=== PATIENT | female | born 2000 | race Hispanic/Latino ===

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

== ENCOUNTER 2022-09-15 13:28 | Emergency (ER) | payer OTHER ==
--- OUTSIDE RECORDS SUMMARY | 2022-09-15 13:35 | XMS REPORT | Continuity of Care Document ---
:2000 Author Organization [facility] t Address [address] [place] [address] Care Team Providers Name Role Phone PCP, PATIENT DOES NOT HAVE A Primary Care Physician UnavailAbigail Browne Attending Clinician Unavailable LAQUITA COLEMAN Attending Clinician Unavailable LORENA VALDOVINOS Attending Clinician Unavailable Laquita Coleman MD Attending Clinician Only, Adc Test Attending Clinician Unavailable Doctor Unassigned, [place] Attending Clinician Unavailable Lorena Valdovinos PA-C Attending Clinician LAQUITA COLEMAN Admitting Clinician Unavailable Laquita Coleman MD Admitting Clinician Payers Payer Name Policy Type Policy Number Effective Date Expiration Date Amarilys pete [facility] [id number] 2015 00:00:00 Problems Condition Condition Condition Status Onset Resolution Last Treating Co mments Source Name Details Category Date Date Treatment Clinician Date Encounter Encounter Disease Active Uni vers for IUD for IUD 2-08 ity of removal removal 00:00: [place] 00 Medical Branch Status Status Disease Active Univers post post 2-08 [place] Intrauteri Intrauteri Disease Active 2020-10 U nivers ne ne 1-29 [place] crystal [place] crystal device 00 Me dical threads threads Branch lost, lost, initial initial encounter encounter Morbid Morbid Disease Active [facility] obesity obesity 8-14 ity of with body with body 00:00: [place] s mass index mass index 00 Me dical of of Branch 40.0-49.9 40.0-49.9 Iron Iron Problem Active Common deficiency deficiency Sp jean carlos anemia due anemia due - [facility] to chronic to chronic St blood loss blood loss [facility] Nexplanon Nexplanon Problem Active Com mon in place in place Spirit - [facility] Menorrhagi Menorrhagi Problem Active C ommon a with a with Spirit regular regular - [facility] cycle cycle [facility] Intermenst Intermenst Problem Active C ommon rual rual Spirit bleeding bleeding - [facility] Possible Possible Diagnosis Active Com mon urinary urinary Spirit tract tract - [facility] infection infection [facility] Allergies, Adverse Reactions, Alerts Allergy Allergy Status Severity Reaction(s) Onset Inactive Treating Comm ents Source Name Type Date Date Clinician NO KNOWN Drug Active Univers ALLERGIE Class ity of S [facility] Social History Social Habit Start Date Stop Date Quantity Comments Source Exposure to Not sure [facility] SARS-CoV-2 [facility] (event) Branch Alcohol intake 2021-11-23 2021-11-23 Current [facility] 00:00:00 00:00:00 non-drinker of [facility] alcohol [place] (finding) Tobacco use and 2017-06-25 2017-06-25 [facility] used [place] [facility] of exposure 00:00:00 00:00:00 [facility] Sex Assigned At [birth year] Universit y of 00:00:00 00:00:00 [facility] Smoking Status Start Date Stop Date Source Never smoker [facility] Medications Ordered Filled Start Stop Current Ordering Indication Dosage Frequency Signature Comments Components Source Medication Medication Date Date Medication? Clinician (SIG) Name Name FENTanyl PF Yes 25ug 25 mcg, Uni vers (SUBLIMAZE 2-08 Slow IV ity of (PF)) 15:06: Push, [place] injection 31 Q5MIN PRN, Medi ralph 25 mcg 4 doses, Branch Starting on Sun11/22/21 at 0906, Until Discontinu ed, Routine, Pain (scale 4-6), PACU ondansetron Yes 4mg 4 mg, Slow Univers (ZOFRAN 2-08 IV Push, ity of (PF)) 15:06: PRN, 1 [place] injection 4 31 dose, Medical mg Starting Branch on Sun11/22/21 at 0906, Until Discontinu ed, Routine, Nausea and Vomiting (N/V), PACU FENTanyl PF Yes 25ug 25 mcg, Uni vers (SUBLIMAZE 2-08 Slow IV ity of (PF)) 15:06: Push, [place] injection 31 Q5MIN PRN, Medi ralph 25 mcg 4 doses, Branch Starting on Sun11/22/21 at 0906, Until Discontinu ed, Routine, Pain (scale 7-10), PACU FENTanyl PF 2021- No 25ug 25 mcg, Un rashad (SUBLIMAZE 11-22 02- Slow IV ity o f (PF)) 15:06: 18:26 Push, [place] injection 31 :17 Q5MIN PRN, Medi ralph 25 mcg 4 doses, Branch Starting on Sun11/22/21 at 0906, Until Sun11/22/21 at 1226, Routine, Pain (scale 7-10), PACU FENTanyl PF 2021- No 25ug 25 mcg, Un rashad (SUBLIMAZE 11-22 02-08 Slow IV ity o f (PF)) 15:06: 18:26 Push, [place] injection 31 :17 Q5MIN PRN, Medi ralph 25 mcg 4 doses, Branch Starting on Sun11/22/21 at 0906, Until Sun11/22/21 at 1226, Routine, Pain (scale 4-6), PACU ondansetron 2021- No 4mg 4 mg, Slow Univers (ZOFRAN 11-22 02-08 IV Push, ity of (PF)) 15:06: 18:26 PRN, 1 [place] injection 4 31 :17 dose, Medical mg Starting Branch on Sun11/22/21 at 0906, Until Sun11/22/21 at 1226, Routine, Nausea and Vomiting (N/V), PACU sodium Yes PRN, Univers chloride 208 Starting ity of 0.9 % 14:18: on Sun [place] irrigation 00 11/22/21 at Medi ralph solution 0818, Branch Until Discontinu ed, Intra-op sodium 2021- No PRN, Univers chloride 2-05 16-08 Starting ity of 0.9 % 14:18: 18:26 on Sun irrigation 00 :17 11/22/21 at Medi ralph solution 0818, Branch Until Sun11/22/21 at 1226, Intra-op ferric Yes PRN, Univers subsulfate 2-08 Starting ity o f (MONSEL'S 14:16: on Sun [place] SOLUTION) 00 11/22/21 at Medic al solution 0816, Branch Until Discontinu ed, Routine, Intra-op ferric 2021- No PRN, Univers subsulfate 2- Starting ity of (MONSEL'S 14:16: 18:26 on Sun SOLUTION) 00 :17 11/22/21 at Medic al solution 0816, Branch Until Sun11/22/21 at 1226, Routine, Intra-op lactated 2021- No 1000mL at 42 Unive rs ringers IV 2-08 02-08 mL/hr, ity of infusion 12:30: 12:49 1,000 mL, Mihir as 1,000 mL 00 :00 IV Medical Infusion, Branch ONCE, 1 dose, On Sun11/22/21 at 0630, Routine, DSU Pre-op lactated 2021- No 1000mL at 42 Unive rs ringers IV 2-08 02-08 mL/hr, ity of infusion 12:30: 12:49 1,000 mL, Mihir as 1,000 mL 00 :00 IV Medical Infusion, Branch ONCE, 1 dose, On Sun11/22/21 at 0630, Routine, DSU Pre-op acetaminoph Yes [id number] 650mg Take 2 Univers en 2-08 tablets by ity of (TYLENOL) 00:00: mouth [place] 325 mg 00 every 6 Medical tablet (six) Branch hours as needed for Pain (scale 1-3) or Pain (scale 4-6). ibuprofen Yes [id number] 600mg Take 1 Univers 600 mg 2-08 tablet by ity of tablet 00:00: mouth [place] 00 every 6 Medical (six) Branch hours as needed for Pain (scale 1-3) or Pain (scale 4-6). acetaminoph Yes [id number] 650mg Take 2 Univers en 2-08 tablets by ity of (TYLENOL) 00:00: mouth [place] 325 mg 00 every 6 Medical tablet (six) Branch hours as needed for Pain (scale 1-3) or Pain (scale 4-6). ibuprofen Yes [id number] 600mg Take 1 Univers 600 mg 2-08 tablet by ity of tablet 00:00: mouth [place] 00 every 6 Medical (six) Branch hours as needed for Pain (scale 1-3) or Pain (scale 4-6). acetaminoph Yes [id number] 650mg Take 2 Univers en 2-08 tablets by ity of (TYLENOL) 00:00: mouth [place] 325 mg 00 every 6 Medical tablet (six) Branch hours as needed for Pain (scale 1-3) or Pain (scale 4-6). ibuprofen Yes [id number] 600mg Take 1 Univers 600 mg 2-08 tablet by ity of tablet 00:00: mouth [place] 00 every 6 Medical (six) Branch hours as needed for Pain (scale 1-3) or Pain (scale 4-6). No known No Univers medications 2-04 ity of 10:02: [place] 30 [facility] Branch Jairo Gill Yes Morgan not Common [facility] defined [facility] iron iron Yes [place] 1 tab Common [facility] Vital Signs Vital Name Observation Time Observation Value Comments Source Systolic blood 2021-11-22 15:40:00 103 mm[facility]Hg[facility] Diastolic blood 2021-11-22 15:40:00 61 mm[Hg] [facility] Heart rate 2021-11-22 15:40:00 83 /min [facility] Oxygen saturation in 2021-11-22 15:40:00 95 /min [facility] Arterial blood by [facility] Pulse oximetry Branch Respiratory rate 2021-11-22 15:35:00 17 /min [facility] Body temperature 2021-11-22 14:47:00 36.33 Solange [facility] Body height 2021-11-10 16:58:00 152.4 cm Universi [facility] Body weight 2021-11-10 16:58:00 102.1 kg [facility] BMI 2021-11-10 16:58:00 43.96 kg/m2 [facility] Body mass index 2021-11-10 16:58:00 98.89 % Unive rsity of (BMI) [Percentile] [place] Med ical Per age and sex Branch Systolic blood 2021-11-22 15:15:00 117 mm[Hg] Univer sity of pressure [facility] Diastolic blood 2021-11-22 15:15:00 64 mm[Hg] Unive rsity of pressure [facility] Heart rate 2021-11-22 15:15:00 78 /min [facility] Respiratory rate 2021-11-22 15:15:00 15 /min [facility] Oxygen saturation in 2021-11-22 15:15:00 95 /min [facility] Arterial blood by [facility] Pulse oximetry Branch Body temperature 2021-11-22 14:47:00 36.33 Solange [facility] Body height 2021-11-10 16:58:00 152.4 cm [facility] Body weight 2021-11-10 16:58:00 102.1 kg [facility] BMI 2021-11-10 16:58:00 43.96 kg/m2 [facility] Body mass index 2021-11-10 16:58:00 98.89 % Unive rsity of (BMI) [Percentile] [place] Med ical Per age and sex Branch Procedures Procedure Date / Time Performing Clinician Source Performed HYSTEROSCOPY 2021-11-22 13:34:00 Laquita Coleman [place] o f [facility] INTRAUTERINE DEVICE 2021-11-22 13:34:00 Laquita Coleman [facility] ABORH CONFIRMATION (LAB 2021-11-22 12:43:00 Laquita Coleman [facility] ONLY) Medical Branch ABORH CONFIRMATION (LAB 2021-11-22 12:43:00 Laquita Colemna [facility] ONLY) [facility] POCT TEST 2021-11-22 12:32:00 Galle, [facility] POCT TEST 2021-11-22 12:32:00 GiuseppeyenniShukri [facility] COVID-19 (ID NOW RAPID 2021-11-21 20:18:00 Jared [facility] TESTING) [facility] BASIC METABOLIC PANEL 2021-11-21 20:10:00 Coleman [facility] (NA, K, CL, CO2, Medical Branch GLUCOSE, BUN, CREATININE, CA) CBC WITH DIFF 2021-11-21 20:10:00 Jared [facility] GLYCOSYLATED HEMOGLOBIN 2021-11-21 20:10:00 [facility] [place] [facility] (A1C) [facility] HB ABO GROUPING 2021-11-21 20:10:00 [facility] TOTAL BETA HCG ASSAY 2021-11-21 20:10:00 Coleman [facility] DSU PRE-OP 2021-10-27 06:01:00 Doctor Unassigned, No [facility] DSU PRE-OP 2021-10-27 06:01:00 Doctor Unassigned, No [facility] Encounters Start End Encounter Admission Attending Care Care Encounter Source Date/Time Date/Time Type Type Clinicians Facility Department ID 2022-09-[address] [facility] [id number] Common 15:44:00 Abigail [facility] 2022-07-11 Outpatient Platt, [facility] [id number] Common 09:37:00 Abigail [facility] 2022-06-08 Outpatient Platt, [facility] [id number] Common 07:56:00 Abigail [facility] 2022-04-27 Outpatient Platt, STKE[facility] [id number] Common 17:37:00 Abigail [facility] 2022-02-10 Outpatient Lc, [facility] [id number] Common 13:16:00 Abigail [facility] 2022-01-[address] [facility] [id number] Common 14:04:00 Abigail 03385 [facility] 2021-11-09 [facility] [id number] Univers 17:14:16 ity [facility] 2022-06-20 2022-06-[address] [facility] [id number] Univers 10:45:00 10:45:00 LORENA ity [facility] 2022-06-05 2022-06-05 Outpatient R JARED [facility] [id number] Univers 08:30:00 08:30:00 ity [facility] 2022-04-12 2022-04-[address] [facility] [id number] Univers 00:00:00 00:00:00 [place] [id number] i ty of [facility] [place] [id number] Mt dic[address] 2021-12-28 2021-12-28 Outpatient R JARED LAQUITA [facility] [id number] Univers 13:30:00 13:30:00 ity [facility] 2021-12-19 2021-12-19 [facility] [id number] Univers 08:00:00 08:00:00 ity [facility] 2021-11-22 2021-11-22 Outpatient R JARED [facility] HAND MIXER [id number] Univers 06:17:00 10:10:00 ity [facility] 2021-11-22 2021-11-22 Hospital [facility] [id number] Univers 06:17:00 10:10:00 Encounter Cam [place] [id number] ity [facility] [place]ICAL [id number] [address] 2021-11-22 2021-11-22 Surgery [facility] [id number] Univers 07:59:00 09:15:00 Cam [place] 350.1.13.10 i ty of [facility] [place] 4.2.7.2.686 [place]ICAL [id number] [facility] 020 Branch 2021-11-21 2021-11-21 Laboratory Only, Minor Test [facility] 1.2.840. [id number] Univers 09:15:00 09:30:00 Only Laquita Coleman 350.1.13.10 ity of [facility] [place] 4.2.7.2.[place] [id number] [facility] 353 Branch 2021-11-21 2021-11-[address] [facility] [id number] Univers 09:15:00 09:15:00 ity of [facility] 2021-11-21 2021-11-21 Orders Doctor JOSH [id number] Univers 00:00:00 00:00:00 Only Unassigned, NONA 350.1.13.10 ity of [place] [facility] 4.2.7.2.686 Mihir as [id number] [facility] 009 Branch 2021-10-28 2021-10-28 Prep For Laquita Coleman [facility] [id number] Univers 00:00:00 00:00:00 Surgery Enrique BANSAL 350.1.13.10 i ty of [facility] [place] 4.2.7.2.[place] [id number] Mt dical NAL 134 [facility] 2021-10-27 2021-10-27 Office Laquita Coleman [facility] [id number] Univers 13:00:00 13:41:27 Visit Enrique B[place] 350.1.13.10 i ty of [place].2.[place] [id number] Mt dical NAL [address] [facility] 2021-10-27 2021-10-27 Outpatient R JARED LAQUITA [facility] [id number] Univers 13:00:00 13:41:27 ity of [facility] 2021-10-27 2021-10-27 Outpatient R COLEMAN LAQUITA [facility] [id number] Univers 13:00:00 13:00:00 ity of [facility] 2021-10-06 2021-10-06 Office Laquita Coleman [facility] [id number] Univers 09:30:00 10:02:57 Visit Enrique BANSAL 350.1.13.10 i ty of [place] 4[place]2.7.2.[place] [id number] Mt dical NAL [address] [place] [address] 2021-10-06 2021-10-[address] [facility] [id number] Univers 09:30:00 10:02:57 ity of [facility] 2021-09-22 2021-09-22 Outpatient R LAQUITA COLEMAN [facility] [id number] Univers 13:30:00 13:30:00 ity of [facility] 2021-09-21 2021-09-21 Telephone [facility] [id number] Univers 00:00:00 00:00:00 Cam SARAH 350.1.13.10 i ty of [place] 4.2.7.2.686 [place] [id number] Mt dical NAL [address] [place] [address] 2021-09-16 2021-09-16 Outpatient R LAQUITA COLEMAN [facility] [id number] Univers 10:47:44 23:59:00 ity of [facility] 2021-09-16 2021-09-16 Hospital Laquita Coleman [facility] [id number] Univers 10:47:44 23:59:00 Encounter Enrique [place] 350.1.13.10 ity of [place].2.7.2.[place] [id number] [facility] 806 [place] 2021-09-12 2021-09-[address] [facility] [id number] Univers 10:30:00 11:19:04 ity of [facility] 2021-09-12 2021-09-12 Office [facility] [id number] Univers 10:01:44 11:19:04 Visit Enrique [place] 350.1.13.10 i ty of [place] 4.2.7.2.[place] [id number] Mt dical [facility] 134 [facility] 2021-09-12 2021-09-12 Orders Doctor JOSH 1.2.840.114 [id number] Univers 00:00:00 00:00:00 Only Unassigned, NONA 350.1.13.10 ity of [place] [facility] 4.2.7.2.686 Mihir as [id number] [facility] 009 [place] 2020-06-08 2020-06-08 Telephone [facility] 1.2.840.114 [id number] 00:00:00 00:00:00 Lorena Bansal 350.1.13.10 [place] 4.2.7.2.686 Professio [id number] [address] 2020-06-08 2020-06-08 Telephone [facility] 1.2.840.114 [id number] Univers 00:00:00 00:00:00 Lorena Bansal 350.1.13.10 i ty of [place] 4[place]2.7.2.[place] Profess[place] [id number] Mt dical [address] 2020-06-03 2020-06-03 [facility] 1.2.840.114 [id number] 12:05:34 23:59:00 Encounter Lorena Bansal 350.1.13.10 [place] 4.2.7.2.686 [place] [id number] [facility] 2020-06-03 2020-06-03 [facility] 1.2.840.114 [id number] Univers 12:05:34 23:59:00 Encounter Lorena [place] 350.1.13.10 ity of [place] 4[place]2.7.2.686 [place] [id number] [facility] [address] [place] [address] 2020-06-03 2020-06-03 [facility] [id number] [facility] 00:00:00 00:00:00 LORENA lakhani of [facility] 2020-05-28 2020-05-28 Office [facility] [id number] 10:40:11 11:21:10 Visit Lorena Bansal 350.1.13.10 [place] 4.2.7.2.[address] Professio [id number] 2020-05-28 2020-05-28 [facility] [id number] Univers 10:40:11 11:21:10 Visit Lorena Bansal 350.1.13.10 i ty of [place] 4.2.7.2.[place] Profess[place] [id number] Me dical [address] 2020-05-28 2020-05-28 Outpatient [facility] [id number] Univers 10:30:00 10:30:00 LORENA ity [facility] 2020-05-28 2020-05-28 Orders Doctor MORENO 1.2.840.114 [id number] Univers 00:00:00 00:00:00 Only Unassigned, NONA 350.1.13.10 ity of [place] [facility] 4.2.7.2.686 Mihir as [id number] [address] 2019-07-25 2019-07-25 Outpatient [facility] [id number] Common 13:30:00 13:30:00 [facility] 2019-04-09 2019-04-09 Outpatient [facility] [id number] Common 14:30:00 14:30:00 [facility] Results Test Description Test Time Test Comments Results Result Comments Source ABORH Confirmation (Lab Only) 2021-11-22 13:50:31 Test Item Value Reference Range Interpretation Comme nts ABO & RH (test code = 20) O Positive Pe rformed at [facility] Laboratory Services - [facility] Blood [address] [place], [place] [address]Vuwj Free: [phone] A No. [id number] [facility] Confirm[facility] (Lab Only)2021-11-22 13:50:31 Test Item Value Reference Range Interpretation Comments ABO & RH (test code O Positive Performe d at [facility] = 20) Laboratory Serv [facility] - [facility] Blood Bank1 [address] [place], [place] [address]Yeeq Free: [phone] A No. [id number] [facility] Loan8184-10-03 12:33:00 Test Item Value Reference Range Interpretation Comments POCT PREG (test code = 1605) Negative On board controls acceptable with Yes C Line (test code = 3574) POCT PREG LOT # (test code = 3575) [id number] POCT PREG TEST DATE (test code = 3576) [facility] [id number] 12:33:00 Test Item Value Reference Range Interpretation Comments POCT PREG (test code = 1605) Negative On board controls acceptable with Yes C Line (test code = 3574) POCT PREG LOT # (test code = 3575) [id number] POCT PREG TEST DATE (test code = 3576) [facility] BETA HCG [id number] 22:03:20 Test Item Value Reference Range Interpretation Comments BETA HCG (test <2.39 See_Comment [Automated m essage] code = The system [employer] [id number]) generated this result transmit anup reference range : Non- fe male and male patien ts: <5 mIU/mL. The reference range was not used to interpret this result as normal/abnormal . ASUNCION (test code Gestational Age ? ? = ASUNCION) ?Range (mIU/mL) 1-10 ?Weeks ?63-11529040-77 Weeks ?19299-63313938-66 Weeks ?1274-94851224-34 Weeks ?9269-816782 Biotin has been reported to cause a negative bias, interpret results relative to patient's use of biotin. [facility] METABOLIC PANEL (NA, K, CL, CO2, GLUCOSE, BUN, CREATININE, CA)2021-11-21 21:22:47 Test Item Value Reference Range Interpretation Comments NA (test code = 139 mmol/L 135-145 [id number]) K (test code = 4.6 mmol/L 3.5-5.0 9893899513) CL (test code = 102 mmol/L 98-108 0558431692) CO2 TOTAL (test code 28 mmol/L 23-31 = 1698910361) AGAP (test code = 2-16 4895087572) BUN (test code = 10 mg/dL 7-23 2458260069) GLUCOSE (test code = 93 mg/dL 70-110 5534682171) CREATININE (test code 0.53 mg/dL 0.50-1.04 = 5198170817) CALCIUM (test code = 9.5 mg/dL 8.6-10.6 2587404445) eGFR (test code = mL/min/1.73m2 0842495023) ASUNCION (test code = ASUNCION) Association of Glomerular Filtration Rate (GFR) and Staging of Kidney Disease* + + +- +| GFR (mL/min/1.73 m2) ?| With Kidney Damage ?| ?Without Kidney Damage+ ------+ ----+ ------+| ?>90 ?| ?Stage one ?| ? Normal ?+ -+ + -+| ?60-89 ?| ?Stage two ?| ? Decreased GFR ? + + +- +| ?30-59 ?| ?Stage three ?| ? Stage three ? + + +- +| ?15-29 ?| ?Stage four ? | ? Stage four ?+ -+ + -+| ?<15 (or dialysis) ? ?| ?Stage five ? | ? Stage five ?+ -+ + -+ *Each stage assumes the associated GFR level has been in effect for at least three months. ?Stages 1 to 5, with or without kidney disease, indicate chronic kidney disease. Notes: Determination of stages one and two (with eGFR >59mL/min/1.73 m2) requires estimation of kidney damage for at least three months as defined by structural or functional abnormalities of the kidney, manifested by either:Pathological abnormalities or Markers of kidney damage (including abnormalities in the composition of the blood or urine or abnormalities in imaging tests). [facility] BranchType and Screen -2021-11-21 21:16:11 Test Item Value Reference Range Interpretation Comments ABO & RH (test code O Positive Performe d at [facility] = 20) Laboratory [facility] Blood Bank[address] [place] [address]Cfcp Free: [phone] A No. [id number] IAT (test code = Negative Performed a t [facility] 1185) Laboratory [facility] Blood Bank[address] [place] [address]Kfjs Free: [phone] A No. [id number] [facility] WITH [id number] 20:52:43 Test Item Value Reference Range Interpretation Comments WBC (test code = See_Comment H [Automated 6690-2) message] The sy stem which generated this result transmitted reference range : 4.30 - 11.10 10*3/?L. The reference range was not used to interpret this result as normal/abnormal . RBC (test code = See_Comment [Automated 789-8) message] The sy stem which generated this result transmitted reference range : 3.93 - 5.25 10*6/?L. The reference range was not used to interpret this result as normal/abnormal . HGB (test code = 14.5 g/dL 11.6-15.0 718-7) HCT (test code = 43.7 % 35.7-45.2 4544-3) MCV (test code = 94.0 fL 80.6-95.5 787-2) MCH (test code = 31.2 pg 25.9-32.8 785-6) MCHC (test code = 33.2 g/dL 31.6-35.1 786-4) RDW-SD (test code = 47.4 fL 39.0-49.9 26227-7) RDW-CV (test code = 13.7 % 12.0-15.5 788-0) PLT (test code = See_Comment H [Automated 777-3) message] The sy stem which generated this result transmitted reference range : 166 - 358 10*3/ ?L. The reference r oliverio was not used to interpret this result as normal/abnormal . MPV (test code = 10.9 fL 9.5-12.9 01737-3) NRBC/100 WBC (test See_Comment [Automat ed code = [id number]) message] The system which generated this result transmitted reference range : 0.0 - 10.0 /100 WBCs. The refer ence range was not u sed to interpret th is result as normal/abnormal . NRBC x10^3 (test code <0.01 See_Comment [Auto mated = [id number]) message] The s ystem which generated this result transmitted reference range : 10*3/?L. The reference range was not used to interpret this result as normal/abnormal . GRAN MAT (NEUT) % 72.1 % (test code = 770-8) IMM GRAN % (test code 0.40 % = [id number]) LYMPH % (test code = 20.6 % 736-9) MONO % (test code = 5.8 % 5905-5) EOS % (test code = 0.7 % 713-8) BASO % (test code = 0.4 % 706-2) GRAN MAT x10^3(ANC) 8.05 10*3/uL 1.88-7.09 H (test code = 0029066390) IMM GRAN x10^3 (test 0.05 10*3/uL 0.00-0.06 code = [id number]) LYMPH x10^3 (test code 2.30 10*3/uL 1.32-3.29 = 731-0) MONO x10^3 (test code 0.65 10*3/uL 0.33-0.92 = 742-7) EOS x10^3 (test code = 0.08 10*3/uL 0.03-0.39 711-2) BASO x10^3 (test code 0.04 10*3/uL 0.01-0.07 = 704-7) Lab Interpretation Abnormal (test code = 81350-1) [facility]2021-11-21 20:34:08 Test Item Value Reference Range Interpretation Comments HGB A1C (test code = 5.2 % 4.0-5.7 4548-4) ASUNCION (test code = ASUNCION) Reference RangesNormal: <5.7%Prediabetes: 5.7 - 6.4%Diabetes: > 6.5% Lab Interpretation (test Normal code = 58521-7) [facility] [place]"
--- NOTE | 2022-09-15 14:28 | RAD REPORT ---
EXAM DESCRIPTION: CT - Head Brain Wo Cont - 09/15/2022 2:22 pm CLINICAL HISTORY: headache Headache, drowsiness COMPARISON: No comparisons TECHNIQUE: All CT scans are performed using dose optimization technique as appropriate and may inclu de automated exposure control or mA/KV adjustment according to patient size. FINDINGS: No intracranial hemorrhage, hydrocephalus or extra-axial fluid collection.No areas of brai n edema or evidence of midline shift. Chronic left maxillary sinus disease. The calvarium is intact. IMPRESSION: No acute intracranial abnormality. Chronic left maxillary sinusitis.
[2022-09-15] MEDS ORDERED: METOCLOPRAMIDE 10 MG/2mL INJ ONE (15:18)
[2022-09-15] MEDS ORDERED: DIPHENHYDRAMINE 50 MG/ML VIAL ONE (15:18)
[2022-09-15] MEDS ORDERED: NA CHLORIDE 0.9% 100 ML IV ONE (15:19)
[2022-09-15] MEDS ORDERED: dexAMETHasone 10 MG/ML VIAL ONE (15:19)
[2022-09-15] MEDS ORDERED: KETOROLAC 30 MG/ML INJ ONE (15:19)
--- NOTE | 2022-09-15 15:52 | EDPHYS ---
Physician Documentation [facility] Name: Wilton Kapadia Age: 22 yrs Sex: Female : 2000 Arrival Date: 09/15/2022 Time: 13:31 Bed DIS1 Private MD: ED Physician Molina Taylor HPI: 09/15 15:50 This 22 yrs old Female presents to ER via Ambulatory with complaints of kb Headache. 15:50 The patient has not recently seen a physician. kb 15:50 The patient complains of pain to the right judaism. The patient describes the headache kb as throbbing. Onset: The symptoms/episode began/occurred 2 day(s) ago. Associated signs and symptoms: The patient has no apparent associated signs or symptoms. Severity of symptoms: At its worst the pain was moderate, in the emergency department the pain is unchanged. Headache History: Denies prior headaches. The symptoms are alleviated by nothing. the symptoms are aggravated by nothing. The patient has not experienced similar symptoms in the past. Pt reports headache that started 2 days ago. States her brother was diagnosed with a brain tumor when he started having headaches so she was concerned. . 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 - Social history:: Smoking status: Patient denies any tobacco usage or history of. ROS: 15:48 Constitutional: Negative for fever, chills, and weight loss. kb 15:48 Neuro: Positive for headache. 15:48 All other systems are negative. Exam: 15:48 Constitutional: This is a well developed, well nourished patient who is awake, alert, kb and in no acute distress. Head/Face: Normocephalic, atraumatic. Eyes: Pupils equal round and reactive to light, extra-ocular motions intact. Lids and lashes normal. Conjunctiva and sclera are non-icteric and not injected. Cornea within normal limits. Periorbital areas with no swelling, redness, or edema. ENT: Moist Mucous membranes Cardiovascular: Regular rate and rhythm with a normal S1 and S2. No gallops, murmurs, or rubs. No pulse deficits. Respiratory: Respirations even and unlabored. No increased work of breathing. Talking in full sentences Abdomen/GI: Soft, non-tender. No distention Skin: Warm, dry with normal turgor. Normal color. MS/ Extremity: Pulses equal, no cyanosis. Neurovascular intact. Full, normal range of motion. Neuro: Awake and alert, GCS 15, oriented to person, place, time, and situation. Moves all extremities. Normal gait. Psych: Awake, alert, with orientation to person, place and time. Behavior, mood, and affect are within normal limits. Vital Signs: 14:01 BP 138 / 79; Pulse 72; Resp 20; Temp 98.7; Pulse Ox 100% ; Weight 104.33 kg; Height 5 kb3 ft. 0 in. (152.40 cm); Pain 7/10; 14:01 Body Mass Index 44.92 (104.33 kg, 152.40 cm) kb3 [place] Coma Score: 15:49 Eye Response: spontaneous(4). Verbal Response: oriented(5). Motor Response: obeys kb commands(6). Total: 15. MDM: 14:04 Patient medically screened. kb 15:49 Data reviewed: vital signs, nurses notes. Data interpreted: Pulse oximetry: on room air kb is 100 %. Interpretation: normal. Counseling: I had a detailed discussion with the patient and/or guardian regarding: the historical points, exam findings, and any diagnostic results supporting the discharge/admit diagnosis, radiology results, the need for outpatient follow up, a family practitioner, to return to the emergency department if symptoms worsen or persist or if there are any questions or concerns that arise at home. 15:51 Response to treatment: the patient's symptoms have resolved after treatment. kb 09/15 14:04 Order name: CT Head Brain wo Cont; Complete Time: 14:34 kb 09/15 15:07 Order name: IV Start; Complete Time: 15:32 kb Administered Medications: 15:20 Drug: Benadryl (diphenhydrAMINE) 12.5 mg Route: IVP; Site: left antecubital; ss 15:22 Drug: Decadron - Dexamethasone 10 mg Route: IVP; Site: left antecubital; ss 15:26 Drug: Ketorolac 15 mg Route: IVP; Site: left antecubital; ss 15:32 Drug: Reglan (metoCLOPramide) 10 mg Route: IVP; Site: left antecubital; ss Disposition: 18:54 Co-signature as Attending Physician, Molina Taylor MD. rn Disposition Summary: 09/15/22 15:51 Discharge Ordered Location: Home kb Condition: Stable kb Diagnosis - Headache kb Followup: kb - With: Emergency Department - When: As needed - Reason: Worsening of condition Followup: kb - With: Private Physician - When: 2 - 3 days - Reason: Recheck today's complaints, Continuance of care, Re-evaluation by your physician Discharge Instructions: - General Headache Without Cause, [id number] kb - Discharge Summary Sheet ss Forms: - Medication Reconciliation Form kb - Thank You Letter kb - Antibiotic Education kb - Prescription Opioid Use kb - Work release form ss Signatures: Dispatcher [employer] Brielle Schaffer, HEALTH TECHNICAL WRITER-C HEALTH TECHNICAL WRITER-Molina Farley MD MD rn Smirch, Shelby, RN RN ss Gay Gregorio, RN RN kb3
--- NOTE | 2022-09-15 15:52 | ER ---
Nurse's Notes [facility] Name: Wilton Kapadia Age: 22 yrs Sex: Female : 2000 Arrival Date: 09/15/2022 Time: 13:31 Bed DIS1 Private MD: Diagnosis: Headache Presentation: 09/15 14:01 Chief complaint: Patient states: right-sided headache x2 days. Coronavirus screen: kb3 Vaccine status: Patient reports receiving the 2nd dose of the covid vaccine. Client denies travel out of the [place] in the last 14 days. Ebola Screen: Patient negative for fever greater than or equal to 101.5 degrees Fahrenheit, and additional compatible Ebola Virus Disease symptoms Patient denies exposure to infectious person. Patient denies travel to an Ebola-affected area in the 21 days before illness onset. Initial Sepsis Screen: Does the patient meet any 2 criteria? No. Patient's initial sepsis screen is negative. Does the patient have a suspected source of infection? No. Patient's initial sepsis screen is negative. Risk Assessment: Do you want to hurt yourself or someone else? Patient reports no desire to harm self or others. Onset of symptoms was September 14, 2022. 14:01 Method Of Arrival: Ambulatory 3 14:01 Acuity: ARMANI 3 kb3 Triage Assessment: 14:04 Headache History: Denies prior headaches. General: Appears in no apparent distress. kb3 Behavior is calm, cooperative. Pain: Complains of pain in right amish Pain does not radiate. Pain currently is 7 out of 10 on a pain scale. Pain began 2-3 days ago. Also complains of no other associated symptoms. Neuro: No deficits noted. Reports headache. 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 - Social history:: Smoking status: Patient denies any tobacco usage or history of. Screenin:53 Abuse screen: Denies threats or abuse. Denies injuries from another. Nutritional ss screening: No deficits noted. Tuberculosis screening: Never had TB. Fall Risk None identified. Assessment: 14:53 General: Appears in no apparent distress. comfortable, Behavior is calm, cooperative. ss Neuro: Level of Consciousness is awake, alert, obeys commands, Oriented to person, place, time, situation, Nursing Care Partner are equal bilaterally. Neuro: Denies dizziness, numbness. Cardiovascular: Capillary refill < 3 seconds is brisk in bilateral fingers. Respiratory: Airway is patent Respiratory effort is even, unlabored, Respiratory pattern is regular, symmetrical. Derm: Skin is intact, is healthy with good turgor, Skin is dry, Skin is pink, warm \T\ dry. normal. Musculoskeletal: Circulation, motion, and sensation intact. Range of motion: intact in all extremities. 15:46 Reassessment: Patient appears in no apparent distress at this time. Patient and/or ss family updated on plan of care and expected duration. Pain level reassessed. Pain was initially 7/10. Pt reports that the pain is much better, now 3/10 and feels ready to go home. SHANI Hannah notified. Patient states feeling better. Patient states symptoms have improved. Vital Signs: 14:01 BP 138 / 79; Pulse 72; Resp 20; Temp 98.7; Pulse Ox 100% ; Weight 104.33 kg; Height 5 kb3 ft. 0 in. (152.40 cm); Pain 7/10; 14:01 Body Mass Index 44.92 (104.33 kg, 152.40 cm) kb3 [place] Coma Score: 15:49 Eye Response: spontaneous(4). Verbal Response: oriented(5). Motor Response: obeys kb commands(6). Total: 15. ED Course: 13:31 Patient arrived in ED. rg4 13:35 [facility] Blanca [facility]-C [facility] kb 13:35 Molina Taylor MD is Attending Physician. kb 14:04 Triage completed. kb3 14:04 Arm band placed on left wrist. kb3 14:24 CT Head Brain wo Cont In Process Unspecified. EDMS 14:53 Berta Bauman, JEREMIAH is Primary Nurse. ss 14:53 Patient has correct armband on for positive identification. Bed in low position. Call ss light in reach. 15:20 Inserted saline lock: 22 gauge in right antecubital area, using aseptic technique. ss Patient maintains SpO2 saturation greater than 95% on room air. 15:46 No provider procedures requiring assistance completed. ss 15:54 IV discontinued, intact, bleeding controlled, No redness/swelling at site. Pressure ss dressing applied. Administered Medications: 15:20 Drug: Benadryl (diphenhydrAMINE) 12.5 mg Route: IVP; Site: left antecubital; ss 15:22 Drug: Decadron - Dexamethasone 10 mg Route: IVP; Site: left antecubital; ss 15:26 Drug: Ketorolac 15 mg Route: IVP; Site: left antecubital; ss 15:32 Drug: Reglan (metoCLOPramide) 10 mg Route: IVP; Site: left antecubital; Medication: 14:53 VIS not applicable for this client. ss Outcome: 15:51 Discharge ordered by . kb 15:54 Discharged to home ambulatory. ss 15:54 Condition: good 15:54 Discharge instructions given to patient, Instructed on discharge instructions, follow up and referral plans. medication usage, Demonstrated understanding of instructions, follow-up care, medications. 15:57 Patient left the ED. ss Signatures: Dispatcher [employer] EDMS Brielle Blanca, DIETARY TECH-C DIETARY TECH-Berta Orta, RN Adry Stevens rg4 Gay Gregorio RN RN kb3
[2022-09-15 16:01] VITALS: BP 138/79; TEMP 98.7; O2SAT 100
== END 2022-09-15 15:57 | disposition home or self-care (01) ==
LOC: ER 13:28
DX: R51.9 Headache, unspecified (principal); F32.A Depression, unspecified
CPT/HCPCS: 70450; 96375; 96374; 99284; J2765; J1200; J1100

== ENCOUNTER 2022-09-28 00:52 | Emergency (ER) | payer OTHER ==
--- OUTSIDE RECORDS SUMMARY | 2022-09-28 00:56 | XMS REPORT | Continuity of Care Document ---
:2000 Author Organization [facility] t Address [address] [place] [address] Care Team Providers Name Role Phone PCP, PATIENT DOES NOT HAVE A Primary Care Physician UnavailAbigail Browne Attending Clinician Unavailable LAQUITA COLEMAN Attending Clinician Unavailable LORENA VALDOVINOS Attending Clinician Unavailable Laquita Coleman MD Attending Clinician Only, Adc Test Attending Clinician Unavailable Doctor Unassigned, [place] Attending Clinician Unavailable Lorena Valdovinos PA-C Attending Clinician LAQUITA COLEMAN Admitting Clinician Unavailable Laquita Coleman MD Admitting Clinician Payers Payer Name Policy Type Policy Number Effective Date Expiration Date Amarilys pete [facility] PERCY [id number] 2015 00:00:00 Problems Condition Condition Condition Status [...] initial encounter encounter Morbid Morbid Disease Active [facility] obesity obesity 8-14 ity of with body with body 00:00: Quentin s mass index mass index 00 Me dical of of Branch 40.0-49.9 40.0-49.9 Iron Iron Problem Active Common deficiency deficiency Sp jean carlos anemia due anemia due - [facility] to chronic to chronic St blood loss blood loss [facility] Nexplanon Nexplanon Problem Active Com mon in place in place [facility] - [facility] Menorrhagi Menorrhagi Problem Active C ommon a with a with Spirit regular regular - [facility] cycle cycle [facility] Intermenst Intermenst Problem Active C ommon rual rual Spirit bleeding bleeding - [facility] Possible Possible Diagnosis Active Com mon urinary urinary Spirit tract tract - [facility] infection infection [facility] Allergies, Adverse Reactions, Alerts Allergy Allergy Status Severity Reaction(s) Onset Inactive Treating Comm ents Source Name Type Date Date Clinician NO KNOWN Drug Active Univers ALLERGIE Class ity of S [facility] Social History Social Habit Start Date Stop Date Quantity Comments Source Exposure to Not sure [facility] SARS-CoV-2 [facility] (event) Branch Alcohol intake 2021-11-23 2021-11-23 Current [facility] 00:00:00 00:00:00 non-drinker of [facility] alcohol [place] (finding) Tobacco use and 2017-06-25 2017-06-[address] [facility] 00:00:00 00:00:00 [facility] Sex Assigned At [birth year] Universit y of 00:00:00 00:00:00 [facility] Smoking Status Start Date Stop Date Source Never smoker [facility] Medications Ordered Filled Start Stop Current [...] at 0630, Routine, DSU Pre-op acetaminoph Yes [id number] 650mg Take 2 Univers en 2-08 tablets by ity of (TYLENOL) 00:00: mouth [place] 325 mg 00 every 6 Medical tablet (six) Branch hours as needed for Pain (scale 1-3) or Pain (scale 4-6). ibuprofen Yes [id number] 600mg Take 1 Univers 600 mg 2-08 tablet by ity of tablet 00:00: mouth [place] 00 every 6 Medical (six) Branch hours as needed for Pain (scale 1-3) or Pain (scale 4-6). acetaminoph Yes [id number] 650mg Take 2 Univers en 2-08 tablets by ity of (TYLENOL) 00:00: mouth [place] 325 mg 00 every 6 Medical tablet (six) Branch hours as needed for Pain (scale 1-3) or Pain (scale 4-6). ibuprofen Yes [id number] 600mg Take 1 Univers 600 mg 2-08 tablet by ity of tablet 00:00: mouth [place] 00 every 6 Medical (six) Branch hours as needed for Pain (scale 1-3) or Pain (scale 4-6). acetaminoph Yes [id number] 650mg Take 2 Univers en 2-08 tablets by ity of (TYLENOL) 00:00: mouth [place] 325 mg 00 every 6 Medical tablet (six) Branch hours as needed for Pain (scale 1-3) or Pain (scale 4-6). ibuprofen Yes [id number] 600mg Take 1 Univers 600 mg 2-08 tablet by ity of tablet 00:00: mouth [place] 00 every 6 Medical (six) Branch hours as needed for Pain (scale 1-3) or Pain (scale 4-6). No known No Univers medications 2-04 ity of 10:02: [place] [facility] Branch Jairo Gill Yes Morgan not Common [facility] defined [facility] iron iron Yes [place] 1 tab [facility] Vital Signs Vital Name Observation Time Observation Value Comments Source Systolic blood 2021-11-22 15:40:00 103 mm[Hg] [facility] Diastolic blood 2021-11-22 15:40:00 61 mm[Hg] [facility] Heart rate 2021-11-22 15:40:00 83 /min [facility] Oxygen saturation in 2021-11-22 15:40:00 95 /min [facility] Arterial blood by [facility] Pulse oximetry Branch Respiratory rate 2021-11-22 15:35:00 17 /min [facility] Body temperature 2021-11-22 14:47:[address] [facility] Body height 2021-11-10 16:58:00 152.4 cm Universi [facility] Body weight 2021-11-10 16:58:[address] BMI 2021-11-10 16:58:00 43.96 kg/m2 [facility] Body mass index 2021-11-10 16:58:00 98.89 % Unive rsity of (BMI) [Percentile] [place] Med ical Per age and sex Branch Systolic blood 2021-11-22 15:15:00 117 mm[Hg] Univer sity of pressure [facility] Diastolic blood 2021-11-22 15:15:00 64 mm[Hg] Unive rsity of pressure [facility] Heart rate 2021-11-22 15:15:00 78 /min [facility] Respiratory rate 2021-11-22 15:15:00 15 /min [facility] Oxygen saturation in 2021-11-22 15:15:00 95 /min [facility] Arterial blood by [facility] Pulse oximetry Branch Body temperature 2021-11-22 14:47:[address] [facility] Body height 2021-11-10 16:58:[address] Body weight 2021-11-10 16:58:00 102.1 kg [facility] BMI 2021-11-10 16:58:00 43.96 kg/m2 [facility] Body mass index 2021-11-10 16:58:00 98.89 % Unive rsity of (BMI) [Percentile] [place] Med ical Per age and sex Branch Procedures Procedure Date / Time Performing Clinician Source Performed HYSTEROSCOPY 2021-11-22 13:34:00 Laquita Coleman [facility] INTRAUTERINE DEVICE 2021-11-22 13:34:00 Laquita Coleman [facility] ABORH CONFIRMATION (LAB 2021-11-22 12:43:00 Laquita Coleman [facility] ONLY) Medical Branch ABORH CONFIRMATION (LAB 2021-11-22 12:43:00 Laquita Coleman [facility] ONLY) [facility] POCT TEST 2021-11-22 12:32:00 G[place], [facility] POCT TEST 2021-11-22 12:32:00 GiuseppeyenniShukri [facility] COVID-19 (ID NOW RAPID 2021-11-21 20:18:00 Jared [facility] TESTING) [facility] BASIC METABOLIC PANEL 2021-11-21 20:10:00 Coleman [facility] (NA, K, CL, CO2, Medical Branch GLUCOSE, BUN, CREATININE, CA) CBC WITH DIFF 2021-11-21 20:10:00 Jared [facility] GLYCOSYLATED HEMOGLOBIN 2021-11-21 20:10:00 [facility] [place] [facility] (A1C) [facility] HB ABO GROUPING 2021-11-21 20:10:00 [facility] TOTAL BETA HCG ASSAY 2021-11-21 20:10:00 Coleman [facility] DSU PRE-OP 2021-10-27 06:01:00 Doctor Unassigned, No [facility] DSU PRE-OP 2021-10-27 06:01:00 Doctor Unassigned, No [facility] Encounters Start End Encounter Admission Attending Care Care Encounter Source Date/Time Date/Time Type Type Clinicians Facility Department ID 2022-09-12 Outpatient TAYO Platt [facility] [id number] Common 15:44:00 Abigail [facility] 2022-07-11 Outpatient Platt, [facility] [id number] Common 09:37:00 Abigail [facility] 2022-06-08 Outpatient Platt, [facility] [id number] Common 07:56:00 Abigail [facility] 2022-04-27 Outpatient Platt, [facility] [id number] Common 17:37:00 Abigail [facility] 2022-02-10 Outpatient Lc, [facility] [id number] Common 13:16:00 Abigail [facility] 2022-01-23 Outpatient TAYO Platt [facility] [id number] Common 14:04:00 Abigail [id number] [facility] 2021-11-09 [facility] [id number] Univers 17:14:16 ity [facility] 2022-06-20 2022-06-20 Outpatient R KENAN [facility] [id number] Univers 10:45:00 10:45:00 LORENA ity [facility] 2022-06-05 2022-06-05 Outpatient R JARED [facility] [id number] Univers 08:30:00 08:30:00 ity [facility] 2022-04-12 2022-04-12 Telephone ColemanLaquita [facility] [id number] Univers 00:00:00 00:00:00 Cam [place] [id number] i ty of [facility] [place] [id number] Tn dic[address] 2021-12-28 2021-12-28 Outpatient R JARED LAQUITA [facility] [id number] Univers 13:30:00 13:30:00 ity [facility] 2021-12-19 2021-12-19 [facility] [id number] Univers 08:00:00 08:00:00 ity [facility] 2021-11-22 2021-11-22 Outpatient R JARED [facility] RN ENT [id number] Univers 06:17:00 10:10:00 ity [facility] 2021-11-22 2021-11-22 [facility] [id number] Univers 06:17:00 10:10:00 Encounter Cam [place] [id number] ity [facility] [place] [id number] [address] 2021-11-22 2021-11-22 Surgery [facility] [id number] Univers 07:59:00 09:15:00 Cam [place] [id number] i ty of [facility] 4.2.[place].2.[place]ICAL [id number] [facility] 020 Branch 2021-11-21 2021-11-21 Laboratory Only, Minor Test [facility] 1.2.840. [id number] Univers 09:15:00 09:30:00 Only Laquita Coleman [id number] ity of [facility] 4.2.[place].2.[place] [id number] [facility] 353 Branch 2021-11-21 2021-11-21 Outpatient R VANI [facility] [id number] Univers 09:15:00 09:15:00 ity of [facility] 2021-11-21 2021-11-21 Orders Doctor JOSH [id number] Univers 00:00:00 00:00:00 Only Unassigned, NONA 350.1.13.10 ity of [place] [facility] 4.2.7.2.686 Mihir as [id number] [facility] 009 Branch 2021-10-28 2021-10-28 Prep For Laquita Coleman [facility] [id number] Univers 00:00:00 00:00:00 Surgery Enrique BANS[place] [id number] i ty of [facility] [place] [id number] Tn dical NAL [address] [facility] 2021-10-27 2021-10-27 Office Laquita Coleman [facility] [id number] Univers 13:00:00 13:41:27 Visit Enrique BANS[place] 350.1.13.10 i ty of [place] 4.2.7.2.[place] [id number] Tn dical NAL [address] [facility] 2021-10-27 2021-10-27 Outpatient R JARED LAQUITA [facility] [id number] Univers 13:00:00 13:41:27 ity of [facility] 2021-10-27 2021-10-27 Outpatient R COLEMAN LAQUITA [facility] [id number] Univers 13:00:00 13:00:00 ity of [facility] 2021-10-06 2021-10-06 Office Laquita Coleman [facility] [id number] Univers 09:30:00 10:02:57 Visit Enrique BANSAL 350.1.13.10 i ty of [place] 4.2.7.2.[place] [id number] Tn dical NAL [address] [place] [address] 2021-10-06 2021-10-06 Outpatient R COLEMANLAQUITA [facility] [id number] Univers 09:30:00 10:02:57 ity of [facility] 2021-09-22 2021-09-22 Outpatient R LAQUITA COLEMAN [facility] [id number] Univers 13:30:00 13:30:00 ity of [facility] 2021-09-21 2021-09-21 Telephone [facility] 1.2.840.114 [id number] Univers 00:00:00 00:00:00 Cam SARAH 350.1.13.10 i ty of [place] 4.2.7.2.[place] [id number] Tn dical NAL [address] [place] [address] 2021-09-16 2021-09-16 Outpatient R LAQUITA COLEMAN [facility] [id number] Univers 10:47:44 23:59:00 ity of [facility] 2021-09-16 2021-09-16 Hospital Laquita Coleman [facility] 1.2.840.114 [id number] Univers 10:47:44 23:59:00 Encounter Enrique [place] 350.1.13.10 ity of [place] 4.2.7.2.[place] [id number] [facility] 806 [place] 2021-09-12 2021-09-12 Outpatient R COLEMANLAQUITA [facility] [id number] Univers 10:30:00 11:19:04 ity of [facility] 2021-09-12 2021-09-12 Office [facility] [id number] Univers 10:01:44 11:19:04 Visit Enrique BANSAL 350.1.13.10 i ty of [place] 4.2.7.2.[place] [id number] Tn dical [facility] [address] [facility] 2021-09-12 2021-09-12 Orders Doctor JOSH 1.2.840.114 [id number] Univers 00:00:00 00:00:00 Only Unassigned, NONA 350.1.13.10 ity of [place] [facility] 4.2.7.2.686 Mihir as [id number] [facility] 009 [place] 2020-06-08 2020-06-08 Telephone [facility] 1.2.840.114 [id number] 00:00:00 00:00:00 Lorena Bansal 350.1.13.10 [place] 4.2.7.2.686 Professio [id number] [address] 2020-06-08 2020-06-08 Telephone [facility] 1.2.840.114 [id number] Univers 00:00:00 00:00:00 Lorena Bansal 350.1.13.10 i ty of [place] [id number] Tn dical [address] 2020-06-03 2020-06-03 [facility] 1.2.840.114 [id number] 12:05:34 23:59:00 Encounter Lorena Bansal 350.1.13.10 [place] 4.2.7.2.686 [place] [id number] [facility] 2020-06-03 2020-06-03 [facility] 1.2.840.114 [id number] Univers 12:05:34 23:59:00 Encounter Lorena [place]ans[place] 350.1.13.10 ity of [place] 4[place]2.[place] [id number] [facility] [address] [place] [address] 2020-06-03 2020-06-03 [facility] [id number] [facility] 00:00:00 00:00:00 LORENA lakhani of [facility] 2020-05-28 2020-05-28 Office [facility] [id number] 10:40:11 11:21:10 Visit Lorena Bansal 350.1.13.10 [place] 4.2.7.2.686 Professio [id number] [address] 2020-05-28 2020-05-28 [facility] [id number] Univers 10:40:11 11:21:10 Visit Lorena Bans[place] 350.1.13.10 i ty of [place] 4[place].2.[place] [id number] Me dical [address] 2020-05-28 2020-05-28 Outpatient [facility] [id number] Univers 10:30:00 10:30:00 LORENA ity [facility] 2020-05-28 2020-05-28 Orders Doctor MORENO 1.2.840.114 [id number] Univers 00:00:00 00:00:00 Only Unassigned, NONA 350.1.13.10 ity of [place] [facility] 4.2.7.2.686 Mihir as [id number] [address] 2019-07-25 2019-07-25 Outpatient [facility] [id number] Common 13:30:00 13:30:00 [facility] 2019-04-09 2019-04-09 Outpatient [facility] [id number] Common 14:30:00 14:30:00 [facility] Results Test Description Test Time Test Comments Results Result Comments Source ABORH Confirmation (Lab Only) 2021-11-22 13:50:31 Test Item Value Reference Range Interpretation Comme nts ABO & RH (test code = 20) O Positive Pe rformed at [facility] Laboratory Services - [facility] Blood [address] [place], [place] [address]Rjqp Free: [phone] A No. [id number] [facility] Confirmation (Lab Only)2021-11-22 13:50:31 Test Item Value Reference Range Interpretation Comments ABO & RH (test code O Positive Performe d at [facility] = 20) Laboratory Serv [facility] - [facility] Blood Bank[address] [place], [place] [address]Pfqh Free: [phone] A No. [id number] [facility] [id number] 12:33:00 Test Item Value Reference Range Interpretation Comments POCT PREG (test code = 1605) Negative On board controls acceptable with Yes C Line (test code = 3574) POCT PREG LOT # (test code = 3575) [id number] POCT PREG TEST DATE (test code = 3576) [facility] [id number] 12:33:00 Test Item Value Reference Range Interpretation Comments POCT PREG (test code = 1605) Negative On board controls acceptable with Yes C Line (test code = 3574) POCT PREG LOT # (test code = 3575) [id number] POCT PREG TEST DATE (test code = 3576) [facility] BETA HCG [id number] 22:03:20 Test Item Value Reference Range Interpretation Comments BETA HCG (test <2.39 See_Comment [Automated m essage] code = The system Lift [id number]) generated this result transmit anup reference range : Non- fe male and male patien ts: <5 mIU/mL. The reference range was not used to interpret this result as normal/abnormal . ASUNCION (test code Gestational Age ? ? = ASUNCION) ?Range (mIU/mL) 1-10 ?Weeks ?31-74785357-68 Weeks ?26203-61298065-96 Weeks ?5812-26706479-57 Weeks ?2398-320964 Biotin has been reported to cause a negative bias, interpret results relative to patient's use of biotin. [facility] METABOLIC PANEL (NA, K, CL, CO2, GLUCOSE, BUN, CREATININE, CA)2021-11-21 21:22:47 Test Item Value Reference Range Interpretation Comments NA (test code = 139 mmol/L 135-145 9121338263) K (test code = 4.6 mmol/L 3.5-5.0 3841474479) CL (test code = 102 mmol/L 98-108 6109733585) CO2 TOTAL (test code 28 mmol/L 23-31 = 3874359327) AGAP (test code = 2-16 5777991530) BUN (test code = 10 mg/dL 7-23 0523281964) GLUCOSE (test code = 93 mg/dL 70-110 4827970047) CREATININE (test code 0.53 mg/dL 0.50-1.04 = 7094912367) CALCIUM (test code = 9.5 mg/dL 8.6-10.6 6787968522) eGFR (test code = mL/min/1.73m2 1737205522) ASUNCION (test code = ASUNCION) Association of [...] or urine or abnormalities in imaging tests). [facility] BranchType and Screen -2021-11-21 21:16:11 Test Item Value Reference Range Interpretation Comments ABO & RH (test code O Positive Performe d at [facility] = 20) Laboratory [facility] Blood Bank[address] [place] [address]Wtkm Free: [phone] A No. [id number] IAT (test code = Negative Performed a t [facility] 1185) Laboratory [facility] Blood Bank1 [address] [place] [address]Jnlg Free: [phone] A No. [id number] [facility] WITH [id number] 20:52:43 Test Item Value Reference Range Interpretation [...] RDW-SD (test code = 47.4 fL 39.0-49.9 54203-4) RDW-CV (test code = 13.7 % 12.0-15.5 788-0) PLT (test code = See_Comment H [Automated 777-3) message] The sy stem which generated this result transmitted reference range : 166 - 358 10*3/ ?L. The reference r oliverio was not used to interpret this result as normal/abnormal . MPV (test code = 10.9 fL 9.5-12.9 34595-0) NRBC/100 WBC (test See_Comment [Automat ed code = 0840291722) message] The system which generated this result transmitted reference range : 0.0 - 10.0 /100 WBCs. The refer ence range was not u sed to interpret th is result as normal/abnormal . NRBC x10^3 (test code <0.01 See_Comment [Auto mated = 9924930816) message] The s ystem which generated this result transmitted reference range : 10*3/?L. The reference range was not used to interpret this result as normal/abnormal . GRAN MAT (NEUT) % 72.1 % (test code = 770-8) IMM GRAN % (test code 0.40 % = 2007865504) LYMPH % (test code = 20.6 % 736-9) MONO % (test code = 5.8 % 5905-5) EOS % (test code = 0.7 % 713-8) BASO % (test code = 0.4 % 706-2) GRAN MAT x10^3(ANC) 8.05 10*3/uL 1.88-7.09 H (test code = 3713101196) IMM GRAN x10^3 (test 0.05 10*3/uL 0.00-0.06 code = 3140104708) LYMPH x10^3 (test code 2.30 10*3/uL 1.32-3.29 = 731-0) MONO x10^3 (test code 0.65 10*3/uL 0.33-0.92 = 742-7) EOS x10^3 (test code = 0.08 10*3/uL 0.03-0.39 711-2) BASO x10^3 (test code 0.04 10*3/uL 0.01-0.07 = 704-7) Lab Interpretation Abnormal (test code = 26149-6) [facility] (A1C)2021-11-21 20:34:08 Test Item Value Reference Range Interpretation Comments HGB A1C (test code = 5.2 % 4.0-5.7 4548-4) ASUNCION (test code = ASUNCION) Reference RangesNormal: <5.7%Prediabetes: 5.7 - 6.4%Diabetes: > 6.5% Lab Interpretation (test Normal code = 18199-8) [facility]"
[2022-09-28 02:03] LABS: Urine Blood 2+ (Negative); Urine Glucose Negative (Negative); Urine Protein Trace (Negative); Urine Specific Gravity >=1.030 (1.005-1.030)
[2022-09-28 02:11] LABS: Absolute Lymphocytes (CBC) 3.3 K/uL (0.7-4.9); Hematocrit 33.9 % (36.0-45.0); Lymphocytes % 25.6 % (15.3-44.8); MCV 88.6 fL (80-100); MPV 8.5 fL (7.6-11.3); RBC Red Blood Cell Count 3.83 M/uL (3.86-4.86)
[2022-09-28 02:23] LABS: Potassium 3.5 mmol/L (3.5-5.1)
[2022-09-28 02:45] LABS: Urine Specific Gravity/Preg >1.030 (1.005-1.030)
--- NOTE | 2022-09-28 03:19 | EDPHYS ---
Physician Documentation [facility] Name: Wilton Kapadia Age: 22 yrs Sex: Female : 2000 Arrival Date: 09/28/2022 Time: 00:59 Bed 2 Private MD: ED Physician Cesar Astorga HPI: 09/28 02:30 This 22 yrs old Female presents to ER via Ambulatory with complaints of Hip kdr Pain, Abdominal Pain, PASSED A BLOOD CLOT. 02:30 Patient states that she was at home and felt that she passed a large clot of blood kdr vaginally. When she saw the blood in the stool she became somewhat nauseated. She then passed another clot. She did not look at at this clot in the toilet. She was concerned that she may be or have some other issue going on. She has been very irregular for the past year. She is sexually active.. Onset: The symptoms/episode began/occurred suddenly, just prior to arrival. Severity of symptoms: At their worst the symptoms were mild moderate just prior to arrival, in the emergency department the symptoms are unchanged. The patient has not experienced similar symptoms in the past. The patient has not recently seen a physician. 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 - Social history:: Smoking status: Patient denies any tobacco usage or history of. ROS: 02:30 Constitutional: Negative for fever, chills, and weight loss, Eyes: Negative for injury, kdr pain, redness, and discharge, ENT: Negative for injury, pain, and discharge, Neck: Negative for injury, pain, and swelling, Cardiovascular: Negative for chest pain, palpitations, and edema, Respiratory: Negative for shortness of breath, cough, wheezing, and pleuritic chest pain, Abdomen/GI: Negative for abdominal pain, nausea, vomiting, diarrhea, and constipation, Back: Negative for injury and pain, MS/Extremity: Negative for injury and deformity, Skin: Negative for injury, rash, and discoloration, Neuro: Negative for headache, weakness, numbness, tingling, and seizure activity. Psych: Negative for depression, anxiety, suicide ideation, homicidal ideation, and hallucinations, Allergy/Immunology: Negative for hives, rash, and allergies, Endocrine: Negative for neck swelling, polydipsia, polyuria, polyphagia, and marked weight changes, Hematologic/Lymphatic: Negative for swollen nodes, abnormal bleeding, and unusual bruising. 02:30 : Positive for vaginal bleeding, Negative for urinary symptoms, urinary frequency, small amounts. Exam: 02:30 Constitutional: This is a well developed, well nourished patient who is awake, alert, kdr and in no acute distress. Head/Face: Normocephalic, atraumatic. Eyes: Pupils equal round and reactive to light, extra-ocular motions intact. Lids and lashes normal. Conjunctiva and sclera are non-icteric and not injected. Cornea within normal limits. Periorbital areas with no swelling, redness, or edema. Neck: Trachea midline, no thyromegaly or masses palpated, and no cervical lymphadenopathy. Supple, full range of motion without nuchal rigidity, or vertebral point tenderness. No Meningismus. Chest/axilla: Normal chest wall appearance and motion. Nontender with no deformity. No lesions are appreciated. Cardiovascular: Regular rate and rhythm with a normal S1 and S2. No gallops, murmurs, or rubs. Normal PMI, no JVD. No pulse deficits. Respiratory: Lungs have equal breath sounds bilaterally, clear to auscultation and percussion. No rales, rhonchi or wheezes noted. No increased work of breathing, no retractions or nasal flaring. Abdomen/GI: Soft, non-tender, with normal bowel sounds. No distension or tympany. No guarding or rebound. No evidence of tenderness throughout. Back: No spinal tenderness. No costovertebral tenderness. Full range of motion. Skin: Warm, dry with normal turgor. Normal color with no rashes, no lesions, and no evidence of cellulitis. MS/ Extremity: Pulses equal, no cyanosis. Neurovascular intact. Full, normal range of motion. Neuro: Awake and alert, GCS 15, oriented to person, place, time, and situation. Cranial nerves II-XII grossly intact. Motor strength 5/5 in all extremities. Sensory grossly intact. Cerebellar exam normal. Normal gait. Psych: Awake, alert, with orientation to person, place and time. Behavior, mood, and affect are within normal limits. Vital Signs: 01:30 BP 133 / 88; Pulse 78; Resp 16; Temp 97.6(O); Pulse Ox 100% ; Weight 93.44 kg (R); kl Height 5 ft. 1 in. (154.94 cm); Pain 6/10; 02:30 BP 133 / 88; Pulse 75; Resp 16 S; Pulse Ox 100% on R/A; ha1 03:47 BP 114 / 88; Pulse 75; Resp 16 S; Pulse Ox 100% on R/A; ha1 01:30 Body Mass Index 38.92 (93.44 kg, 154.94 cm) kl MDM: 03:18 Patient medically screened. kdr 04:07 Data reviewed: vital signs, nurses notes, lab test result(s). Counseling: I had a kdr detailed discussion with the patient and/or guardian regarding: the historical points, exam findings, and any diagnostic results supporting the discharge/admit diagnosis, lab results, the need for outpatient follow up. 09/28 01:36 Order name: CBC with Diff; Complete Time: 03:13 kdr 09/28 01:36 Order name: Chem 7; Complete Time: 03:13 kdr 09/28 01:36 Order name: Urine Dipstick-Ancillary (obtain specimen); Complete Time: 02:15 kdr 09/28 01:36 Order name: Urine Test (obtain specimen); Complete Time: 02:15 kdr 09/28 02:04 Order name: Urine Dipstick-Ancillary; Complete Time: 03:13 EDMS 09/28 02:24 Order name: Urine --Ancillary (enter results); Complete Time: 03:13 wm Administered Medications: No medications were administered Disposition Summary: 09/28/22 03:18 Discharge Ordered Location: Home kdr Problem: new kdr Symptoms: have improved kdr Condition: Stable kdr Diagnosis - Menstrual bleeding, irregular periods kdr Followup: kdr - With: Private Physician - When: 2 - 3 days - Reason: If symptoms return, Further diagnostic work-up, Recheck today's complaints, Continuance of care, Re-evaluation by your physician Discharge Instructions: - Discharge Summary Sheet kdr - Abnormal Uterine Bleeding, [id number] kdr Forms: - Medication Reconciliation Form kdr - Thank You Letter kdr Signatures: Dispatcher MedRickst Harriet Gutierrez RN RN kl Rittger, Kevin, MD MD kdr
--- NOTE | 2022-09-28 03:19 | ER ---
Nurse's Notes [facility] Name: Wilton Kapadia Age: 22 yrs Sex: Female : 2000 Arrival Date: 09/28/2022 Time: 00:59 Bed 2 Private MD: Diagnosis: Menstrual bleeding, irregular periods Presentation: 09/28 01:30 Chief complaint: Patient states: "passed a large blood clot. I started my period 2 days kl ago. Coronavirus screen: Vaccine status: Patient reports receiving the 2nd dose of the covid vaccine. Coronavirus screen: Vaccine status:. Ebola Screen: Patient negative for fever greater than or equal to 101.5 degrees Fahrenheit, and additional compatible Ebola Virus Disease symptoms. Initial Sepsis Screen: Does the patient meet any 2 criteria? No. Patient's initial sepsis screen is negative. Does the patient have a suspected source of infection? No. Patient's initial sepsis screen is negative. Risk Assessment: Do you want to hurt yourself or someone else? Patient reports no desire to harm self or others. 01:30 Method Of Arrival: Ambulatory 01:30 Acuity: ARMANI 3 kl 01:34 Note pt reports irregular periods since having IUD removed in November. Triage Assessment: 01:32 General: Appears in no apparent distress. comfortable, Behavior is calm, cooperative. kl Pain: Complains of pain in bilateral hip pain. EENT: No deficits noted. Neuro: No deficits noted. Cardiovascular: No deficits noted. Respiratory: No deficits noted. GI: Abdomen is round Bowel sounds present X 4 quads. Reports. : No deficits noted. No signs and/or symptoms were reported regarding the genitourinary system. Derm: No deficits noted. No signs and/or symptoms reported regarding the dermatologic system. Musculoskeletal: No deficits noted. No signs and/or symptoms reported regarding the musculoskeletal system. 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 - Social history:: Smoking status: Patient denies any tobacco usage or history of. Screenin:48 Abuse screen: Denies threats or abuse. Denies injuries from another. Nutritional ha1 screening: No deficits noted. Tuberculosis screening: No symptoms or risk factors identified. Assessment: 03:46 Reassessment: Patient and/or family updated on plan of care and expected duration. Pain ha1 level reassessed. Patient is alert, oriented x 3, equal unlabored respirations, skin warm/dry/pink. Patient states feeling better. Vital Signs: 01:30 BP 133 / 88; Pulse 78; Resp 16; Temp 97.6(O); Pulse Ox 100% ; Weight 93.44 kg (R); Height 5 ft. 1 in. (154.94 cm); Pain 6/10; 02:30 BP 133 / 88; Pulse 75; Resp 16 S; Pulse Ox 100% on R/A; ha1 03:47 BP 114 / 88; Pulse 75; Resp 16 S; Pulse Ox 100% on R/A; ha1 01:30 Body Mass Index 38.92 (93.44 kg, 154.94 cm) ED Course: 00:59 Patient arrived in ED. es 01:29 Cesar Astorga MD is Attending Physician. kdr 01:30 Patient has correct armband on for positive identification. Placed in gown. Bed in low ha1 position. Call light in reach. Side rails up X 1. Side rails up X2. 01:32 Triage completed. kl 03:49 No provider procedures requiring assistance completed. Patient did not have IV access ha1 during this emergency room visit. 03:50 Arm band placed on left wrist. ha1 Administered Medications: No medications were administered Medication: 03:50 VIS not applicable for this client. ha1 Outcome: 03:18 Discharge ordered by . kdr 03:49 Discharged to home ambulatory. ha1 03:49 Condition: stable 03:49 Discharge instructions given to patient, Instructed on discharge instructions, follow up and referral plans. Demonstrated understanding of instructions, follow-up care. 03:50 Patient left the ED. ha1 Signatures: Harriet Alexander RN RN Cesar Astorga MD MD kdr Salyer, Edna es Ayala, Heidy, RN RN ha1
[2022-09-28 03:56] VITALS: TEMP 97.6; O2SAT 100
[2022-09-28 03:58] VITALS: BP 114/88
== END 2022-09-28 03:50 | disposition home or self-care (01) ==
LOC: ER 00:52
DX: N92.6 Irregular menstruation, unspecified (principal)
CPT/HCPCS: 36415; 80048; 81003; 81025; 85025; 99281

== ENCOUNTER 2023-06-07 02:32 | Emergency (ER) | payer OTHER ==
--- OUTSIDE RECORDS SUMMARY | 2023-06-07 02:35 | XMS REPORT | Continuity of Care Document ---
:[address] [facility] t Address [address] [place] [address] [place] [address] Care Team Providers Name Role Phone PCP, PATIENT DOES NOT HAVE A Primary Care Physician UnavailAbigail Browne Attending Clinician Unavailable LAQUITA COLEMAN Attending Clinician Unavailable LOVE BRUNNER Attending Clinician Unavailable LOVE BRUNNER Attending Clinician Unavailable 2, [facility] Lab Attending Clinician Unavailable Laquita Coleman MD Attending Clinician Doctor Unassigned, [place] Attending Clinician Unavailable LORENA VALDOVINOS Attending Clinician Unavailable Only, Adc Test Attending Clinician Unavailable Lorena Valdovinos PA-C Attending Clinician LAQUITA COLEMAN Admitting Clinician Unavailable Laquita Coleman MD Admitting Clinician Payers Payer Name Policy Type Policy Number Effective Date Expiration Date Amarilys pete FORMERLY [facility] [id number] 2015 00:00:00 Problems Condition Condition Condition Status [...] Disease Active 2020-10 U nivers ne ne -29 ity of contrace[place] crystal device crystal device 00 Me dical threads threads Branch lost, lost, initial initial encounter encounter Morbid Morbid Disease Active Univers obesity obesity 8-14 [place] of with body [place] mass [place] mass index 00 [place] dical of of Branch 40.0-49.9 40.0-49.9 Iron Iron Problem Active Common deficiency deficiency Sp jean carlos anemia due anemia due - [facility] to chronic to chronic St blood loss blood loss [facility] Nexplanon Nexplanon Problem Active Com mon in place in place Spirit - [facility] Menorrhagi Menorrhagi Problem Active C ommon a with a with Spirit regular regular - [facility] cycle cycle [facility] Intermenst Intermenst Problem Active C ommon rual rual Spirit bleeding bleeding - [facility] Possible Possible Diagnosis Active Com mon urinary urinary Spirit tract tract - [facility] infection infection [facility] Allergies, Adverse Reactions, Alerts Allergy Allergy Status Severity Reaction(s) Onset Inactive Treating Comm ents Source Name Type Date Date Clinician NO KNOWN Drug Active Univers ALLERGIE Class ity of S [facility] Social History Social Habit Start Date Stop Date Quantity Comments Source Exposure to 2022-10-16 2022-10-26 [facility] sure [facility] SARS-CoV-2 00:00:00 08:11:[address] [facility] (event) Branch Tobacco use and 2022-10-26 2022-10-26 Smokeless tobacco Un iversity of exposure 00:00:00 00:00:00 non-user [facility] Alcohol intake 2022-10-26 2022-10-26 [facility] 00:[facility]:00 00:00:00 non-drinker of [facility] alcohol (finding) Branch Sex Assigned At [birth year] Universit y of 00:00:00 00:00:00 [facility] Smoking Status Start Date Stop Date Source Never smoked tobacco [facility] Medications Ordered Filled Start Stop Current Ordering Indication Dosage Frequency Signature Comments Components Source Medication Medication Date Date Medication? Clinician (SIG) Name Name escitalopra Yes 10mg Take 10 mg Univers m oxalate 1-12 by mouth ity of 10 mg 08:47: in the [facility] 15 morning. Medical Branch escitalopra 2023-0 Yes 10mg Take 10 mg Univers m oxalate 1-12 by mouth ity of 10 mg 08:47: in the [place] tablet 15 morning. Medical Branch escitalopra 2022-0 Yes 10mg Take 10 mg Univers m oxalate 1-12 by mouth ity of 10 mg 08:47: in the [place] tablet 15 morning. Medical Branch NUVARING 2022-0 Yes [id number] 1{each} Insert 1 Univers 0.12-0.015 1-12 Each into ity of mg/24 hr 00:00: vagina [place] vaginal 00 once every Medica l insert month. Branch Insert vaginally and leave in place for 3 consecutiv e weeks, then remove for 1 week. NUVARING 2022-0 Yes [id number] 1{each} Insert 1 Univers 0.12-0.015 1-12 Each into ity of mg/24 hr 00:00: vagina [place] vaginal 00 once every Medica l insert month. Branch Insert vaginally and leave in place for 3 consecutiv e weeks, then remove for 1 week. FENTanyl PF 0 Yes 25ug 25 mcg, Uni vers (SUBLIMAZE 2-08 Slow IV ity of (PF)) 15:06: Push, [place] injection 31 Q5MIN PRN, Medi ralph 25 mcg 4 doses, Branch Starting on Sun11/22/21 at 0906, Until Discontinu ed, Routine, Pain (scale 7-10), PACU FENTanyl PF 2021-0 Yes 25ug 25 mcg, Uni vers (SUBLIMAZE 2-08 Slow IV ity of (PF)) 15:06: Push, [place] injection 31 Q5MIN PRN, Medi ralph 25 mcg 4 doses, Branch Starting on Sun11/22/21 at 0906, Until Discontinu ed, Routine, Pain (scale 4-6), PACU ondansetron 0 Yes 4mg 4 mg, Slow Univers (ZOFRAN 2-08 IV Push, ity of (PF)) 15:06: PRN, 1 [place] injection 4 31 dose, Medical mg Starting Branch on Sun11/22/21 at 0906, Until Discontinu ed, Routine, Nausea and Vomiting (N/V), PACU FENTanyl PF 2021-0 2022- No 25ug 25 mcg, Un rashad (SUBLIMAZE 2-08 02-08 Slow IV ity o f (PF)) 15:06: 18:26 Push, [place] injection 31 :17 Q5MIN PRN, Medi ralph 25 mcg 4 doses, Branch Starting on Sun11/22/21 at 0906, Until Sun11/22/21 at 1226, Routine, Pain (scale 7-10), PACU FENTanyl PF 2021-0 2022- No 25ug 25 mcg, Un rashad (SUBLIMAZE 11-22- Slow IV ity o f (PF)) 15:06: 18:26 Push, [place] injection 31 :17 Q5MIN PRN, Medi ralph 25 mcg 4 doses, Branch Starting on Sun11/22/21 at 0906, Until Sun11/22/21 at 1226, Routine, Pain (scale 4-6), PACU ondansetron 2021-0 202- No 4mg 4 mg, Slow Univers (ZOFRAN 11-22 IV Push, ity of (PF)) 15:06: 18:26 PRN, 1 [place] injection 4 31 :17 dose, Medical mg Starting Branch on Sun11/22/21 at 0906, Until Sun11/22/21 at 1226, Routine, Nausea and Vomiting (N/V), PACU sodium 2021-0 Yes PRN, Univers chloride 2-08 Starting ity of 0.9 % 14:18: on Sun [place] irrigation 00 11/22/21 at Medi ralph solution 0818, Branch Until Discontinu ed, Intra-op sodium 2021-0 2022- No PRN, Univers chloride 2-05 16-08 Starting ity of 0.9 % 14:18: 18:26 on Sun [place] irrigation 00 :17 11/22/21 at Medi ralph solution 0818, Branch Until Sun11/22/21 at 1226, Intra-op ferric 2021-0 Yes PRN, Univers subsulfate 2-08 Starting ity o f (MONSEL'S 14:16: on Sun [place] SOLUTION) 00 11/22/21 at Medic al solution 0816, Branch Until Discontinu ed, Routine, Intra-op ferric 2022-0 2022- No PRN, Univers subsulfate 2- 02-08 Starting ity of (MONSEL'S 14:16: 18:26 on Sun [place] SOLUTION) 00 :17 11/22/21 at Medic al solution 0816, Branch Until Sun11/22/21 at 1226, Routine, Intra-op lactated 2021-0 2- No 1000mL at 42 [facility] 2-08 02-08 mL/hr, ity of infusion 12:30: 12:49 1,000 mL, Mihir as 1,000 mL 00 :00 IV Medical Infusion, Branch ONCE, 1 dose, On Sun11/22/21 at 0630, Routine, DSU Pre-op lactated 2021-0 2022- No 1000mL at 42 [facility] rs ringers IV 2-08 02-08 mL/hr, ity of infusion 12:30: 12:49 1,000 mL, Mihir as 1,000 mL 00 :00 IV Medical Infusion, Branch ONCE, 1 dose, On Sun11/22/21 at 0630, Routine, DSU Pre-op acetaminoph 2021-0 Yes [id number] 650mg Take 2 Univers en 2-08 tablets by ity of (TYLENOL) 00:00: mouth [place] 325 mg 00 every 6 Medical tablet (six) Branch hours as needed for Pain (scale 1-3) or Pain (scale 4-6). ibuprofen 2021-0 Yes [id number] 600mg Take 1 Univers 600 mg 2-08 tablet by ity of tablet 00:00: mouth [place] 00 every 6 Medical (six) Branch hours as needed for Pain (scale 1-3) or Pain (scale 4-6). acetaminoph 2022-0 Yes [id number] 650mg Take 2 Univers en 2-08 tablets by ity of (TYLENOL) 00:00: mouth [place] 325 mg 00 every 6 Medical tablet (six) Branch hours as needed for Pain (scale 1-3) or Pain (scale 4-6). ibuprofen 2022-0 Yes [id number] 600mg Take 1 Univers 600 mg 2-08 tablet by ity of tablet 00:00: mouth [place] 00 every 6 Medical (six) Branch hours as needed for Pain (scale 1-3) or Pain (scale 4-6). acetaminoph 2022-0 Yes [id number] 650mg Take 2 Univers en 2-08 tablets by ity of (TYLENOL) 00:00: mouth [place] 325 mg 00 every 6 Medical tablet (six) Branch hours as needed for Pain (scale 1-3) or Pain (scale 4-6). ibuprofen 2021-0 Yes [id number] 600mg Take 1 Univers 600 mg 2-08 tablet by ity of tablet 00:00: mouth [place] 00 every 6 Medical (six) Branch hours as needed for Pain (scale 1-3) or Pain (scale 4-6). acetaminoph 2021-0 Yes [id number] 650mg Take 2 Univers en 2-08 tablets by ity of (TYLENOL) 00:00: mouth [place] 325 mg 00 every 6 Medical tablet (six) Branch hours as needed for Pain (scale 1-3) or Pain (scale 4-6). ibuprofen 2021-0 Yes [id number] 600mg Take 1 Univers 600 mg 2-08 tablet by ity of tablet 00:00: mouth [place] 00 every 6 Medical (six) Branch hours as needed for Pain (scale 1-3) or Pain (scale 4-6). acetaminoph 2021-0 2022- No [id number] 650mg Take 2 Univers en 2-08 01-12 tablets by ity of (TYLENOL) 00:00: 00:00 mouth [place] 325 mg 00 :00 every 6 Medical tablet (six) Branch hours as needed for Pain (scale 1-3) or Pain (scale 4-6). ibuprofen 2021-0 3- No [id number] 600mg Take 1 Univers 600 mg 2-08 01-12 tablet by ity of tablet 00:00: 00:00 mouth [place] 00 :00 every 6 Medical (six) Branch hours as needed for Pain (scale 1-3) or Pain (scale 4-6). acetaminoph 202-0 3- No [id number] 650mg Take 2 Univers en 2-08 01-12 tablets by ity of (TYLENOL) 00:00: 00:00 mouth [place] 325 mg 00 :00 every 6 Medical tablet (six) Branch hours as needed for Pain (scale 1-3) or Pain (scale 4-6). ibuprofen 2021-0 3- No [id number] 600mg Take 1 Univers 600 mg 2-08 01-12 tablet by ity of tablet 00:00: 00:00 mouth [place] 00 :00 every 6 Medical (six) Branch hours as needed for Pain (scale 1-3) or Pain (scale 4-6). No known No Univers medications 2-04 ity of 10:02: [address] Branch Jairo Gill Yes Morgan not Common Rekhi defined Spirit [facility] iron iron Yes [place] 1 tab Common Rekhi Spirit - [facility] Vital Signs Vital Name Observation Time Observation Value Comments Source Systolic blood 2022-10-26 14:41:00 101 mm[Hg] Univer sity of pressure [facility] Diastolic blood 2022-10-26 14:41:00 64 mm[Hg] Unive rsity of pressure [facility] Heart rate 2022-10-26 14:41:00 71 /min [facility] Body temperature 2022-10-26 14:41:00 36.5 Solange [facility] Body weight 2022-10-26 14:41:00 95.618 kg Universi [facility] Systolic blood 2021-11-22 15:40:00 103 mm[Hg] Univer sity of [facility] Diastolic blood 2021-11-22 15:40:00 61 mm[Hg] Unive rsity of pressure [facility] Heart rate 2021-11-22 15:40:00 83 /min [facility] Oxygen saturation in 2021-11-22 15:40:00 95 /min [facility] Arterial blood by [facility] Pulse oximetry Branch Respiratory rate 2021-11-22 15:35:00 17 /min [facility] Body temperature 2021-11-22 14:47:00 36.33 Solange [facility] Body height 2021-11-10 16:58:00 [facility]4 cm [facility] Body weight 2021-11-10 16:58:00 102.1 [facility] BMI 2021-11-10 16:58:00 43.96 kg/m2 [facility] Body mass index 2021-11-10 16:58:00 98.89 % Unive rsity of (BMI) [Percentile] [facility] ical Per age and sex Branch Systolic blood 2021-11-22 15:15:00 117 mm[Hg] Univer sity of [facility] Diastolic blood 2021-11-22 15:15:00 64 mm[Hg] Unive rsity of pressure [facility] Heart rate 2021-11-22 15:15:00 78 /min [facility] Respiratory rate 2021-11-22 15:15:00 15 /min [facility] Oxygen saturation in 2021-11-22 15:15:00 95 /min [facility] Arterial blood by [facility] Pulse oximetry Branch Body temperature 2021-11-22 14:47:[address] [facility] Body height 2021-11-10 16:58:00 152.4 cm [facility] Body weight 2021-11-10 16:58:00 102.1 kg [facility] BMI 2021-11-10 16:58:00 43.96 kg/m2 [facility] Body mass index 2021-11-10 16:58:00 98.89 % Unive rsity of (BMI) [Percentile] [facility] ica Per age and sex Branch Procedures Procedure Date / Time Performing Clinician Source Performed CONSENT/REFUSAL FOR 2022-10-26 14:12:33 Doctor Unassigned, No [facility] DIAGNOSIS AND TREATMENT Name Medical [place] ASSIGNMENT OF BENEFITS 2022-10-26 14:12:15 Doctor Unassigned, No [facility] Name [facility] Branch POCT TEST 2022-10-26 00:00:00 Laquita Coleman [facility] HYSTEROSCOPY 2021-11-22 13:34:00 Laquita Coleman [facility] o f [facility] INTRAUTERINE DEVICE 2021-11-22 13:34:00 Laquita Coleman [facility] REMOVAL [facility] ABORH CONFIRMATION (LAB 2021-11-22 12:43:[address] [facility] ONLY) Medical Branch ABORH CONFIRMATION (LAB 2021-11-22 12:43:[address] [facility] ONLY) Medical Branch POCT TEST 2021-11-22 12:32:00 Shukri Rivera [facility] POCT TEST 2021-11-22 12:32:00 Shukri Rivera [facility] COVID-19 (ID NOW RAPID 2021-11-21 20:18:00 Laquita Coleman [facility] TESTING) Medical [place] BASIC METABOLIC PANEL 2021-11-21 20:10:[address] [facility] (NA, K, CL, CO2, Medical Branch GLUCOSE, BUN, CREATININE, CA) CBC WITH DIFF 2021-11-21 20:10:00 Laquita Coleman [facility] GLYCOSYLATED HEMOGLOBIN 2021-11-21 20:10:00 [facility] HB ABO GROUPING 2021-11-21 20:10:00 Jared [facility] TOTAL BETA HCG ASSAY 2021-11-21 20:10:00 Laquita Coleman [facility] DSU PRE-OP 2021-10-27 06:01:00 Doctor Unassigned, No [facility] DSU PRE-OP 2021-10-27 06:01:00 Doctor Unassigned, [facility] Encounters Start End Encounter Admission Attending Care Care Encounter Source Date/Time Date/Time Type Type Clinicians Facility Department ID 2022-09-12 Outpatient [place], STLMLC STLC [id number] Common 15:44:00 Abigail [facility] 2022-07-11 Outpatient Platt, STLMLC STLC [id number] Common 09:37:00 Abigail [facility] 2022-06-08 Outpatient Platt, STLMLC STLC [id number] Common 07:56:00 Abigail [facility] 2022-04-27 Outpatient [place]att, STLMLC STLC [id number] Common 17:37:00 Abigail [facility] 2022-02-10 Outpatient Platt, STLMLC STLC [id number] Common 13:16:00 Abigail [facility] 2022-01-23 Outpatient [place]att, STLMLC STLC [id number] Common 14:04:00 Abigail [facility] 2021-11-09 Outpatient R JARED LAQUITA [facility] 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 [id number] Univers 17:14:16 ity of [facility] 2023-02-13 2023-02-13 Outpatient R LOVE BRUNNER [facility] U TMB [id number] Univers 13:30:00 13:30:00 ROSITAMENDIOLALOVE CRUZ ity of [facility] 2023-01-25 2023-01-25 Outpatient R LAQUITA COLEMAN [facility] [id number] Univers 08:00:00 08:00:00 ity of [facility] 2022-10-26 2022-10-26 Engraver 2, Adc Lab [facility] [id number] Univers 09:45:00 10:00:00 Visit Laquita Coleman Enrique BANSAL [id number] ity of [id number] [id number] Fl dical NAL [address] [facility] 2022-10-26 2022-10-26 Outpatient R LAQUITA COLEMAN [facility] [id number] Univers 08:30:00 09:29:18 ity of [facility] 2022-10-26 2022-10-26 Office Judy Colemanen [facility] [id number] Univers 08:30:00 09:29:18 Visit Enrique BANSAL [id number] i ty of [id number] [id number] Fl dical NAL 134 [facility] 2022-10-26 2022-10-26 Orders Doctor JOSH [id number] Univers 00:00:00 00:00:00 Only Unassigned, NONA [id number] ity of [place] [facility] [id number] Mihir as [id number] [address] 2022-06-20 2022-06-20 Outpatient R KENAN [facility] [id number] Univers 10:45:00 10:45:00 LORENA ity [facility] 2022-06-05 2022-06-05 Outpatient R LAQUITA COLEMAN [facility] [id number] Univers 08:30:00 08:30:00 ity of [facility] 2022-04-12 2022-04-12 Telephone Laquita Coleman [facility] [id number] Univers 00:00:00 00:00:00 Cam [place] [id number] i ty of [place] [id number] [place] [id number] Fl dical [address] 2021-12-28 2021-12-28 Outpatient R LAQUITA COLEMAN [facility] [id number] Univers 13:30:00 13:30:00 ity of [facility] 2021-12-19 2021-12-19 Outpatient R LAQUITA COLEMAN [facility] [id number] Univers 08:00:00 08:00:00 ity of [facility] 2021-11-22 2021-11-22 Outpatient R JARED [facility] 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 [id number] Univers 06:17:00 10:10:00 ity of [facility] 2021-11-22 2021-11-22 [facility] Laquita Coleman [facility] [id number] Univers 06:17:00 10:10:00 Encounter Cam [place] [id number] ity of [place] [id number] [place] SURGICAL [id number] [facility] 071 Branch 2021-11-22 2021-11-22 Surgery Laquita Coleman [facility] [id number] Univers 07:59:00 09:15:00 Cam [place] [id number] i ty of [place] [id number] [place] SURGICAL [id number] [facility]20 Branch 2021-11-21 2021-11-21 Laboratory Only, [facility] 1.2.840. [id number] Univers 09:15:00 09:30:00 Only Laquita Coleman [place] [id number] ity of [place] 4.2.7.2.686 [place] CAMPUS [id number] [facility] [address] [place] [address] 2021-11-21 2021-11-21 Outpatient R LAQUITA COLEMAN [facility] [id number] Univers 09:15:00 09:15:00 ity of [facility] 2021-11-21 2021-11-21 Orders Doctor JOSH [id number] Univers 00:00:00 00:00:00 Only Unassigned, NONA 350.1.13.10 ity of [place] [facility] [id number] Mihir as [id number] [address] 2021-10-28 2021-10-28 Prep For Laquita Coleman [facility] [id number] Univers 00:00:00 00:00:00 Surgery Cam [place] [id number] i ty of [facility] [id number] [place] [id number] Fl dic[address] 2021-10-27 2021-10-27 Office Laquita Coleman [facility] [id number] Univers 13:00:00 13:41:27 Visit Cam [place] [id number] i ty of [facility] [id number] [place] [id number] Fl dical NAL [address] [place] [address] 2021-10-27 2021-10-27 Outpatient R LAQUITA COLEMAN [facility] [id number] Univers 13:00:00 13:41:27 ity of [facility] 2021-10-27 2021-10-27 Outpatient R LAQUITA COLEMAN [facility] [id number] Univers 13:00:00 13:00:00 ity of [facility] 2021-10-06 2021-10-06 Office Laquita Coleman [facility] [id number] Univers 09:30:00 10:02:57 Visit Cam [place] [id number] i ty of [facility] [id number] [place] [id number] Fl dic[address] 2021-10-06 2021-10-06 Outpatient R LAQUITA COLEMAN [facility] [id number] Univers 09:30:00 10:02:57 ity of [facility] 2021-09-22 2021-09-22 Outpatient R LAQUITA COLEMAN [facility] [id number] Univers 13:30:00 13:30:00 ity of [facility] 2021-09-21 2021-09-21 [facility] 1.2.840.114 [id number] Univers 00:00:00 00:00:00 Enrique BANSAL [id number] i ty of [place] [id number] [id number] Fl dical NAL 134 [facility] 2021-09-16 2021-09-16 Outpatient R LAQUITA COLEMAN [facility] [id number] Univers 10:47:44 23:59:00 ity of [facility] 2021-09-16 2021-09-16 Hospital [facility] 1.2.840.114 [id number] Univers 10:47:44 23:59:00 Encounter Enrique BANSAL [id number] ity of [place] 4.2.7.2.686 [place] [id number] [facility] 806 [place] 2021-09-12 2021-09-12 Outpatient R LAQUITA COLEMAN [facility] [id number] Univers 10:30:00 11:19:04 ity of [facility] 2021-09-12 2021-09-12 Office Jared [facility] [id number] Univers 10:01:44 11:19:04 Visit Enrique BANSAL 350.1.13.10 i ty of [place] 4[place]2.[place].2.[place] [id number] Fl dical NAL 134 [facility] 2021-09-12 2021-09-12 Orders Doctor JOSH 1.2.840.114 [id number] Univers 00:00:00 00:00:00 Only Unassigned, NONA 350.1.13.10 ity of [place] [facility] 4.2.7.2.686 Mihir [id number] [facility] 009 [place] 2020-06-08 2020-06-08 [facility] 1.2.840.114 [id number] 00:00:00 00:00:00 Lorena Bansal 350.1.13.10 [place] 4.2.7.2.686 Professio [id number] [address] 2020-06-08 2020-06-08 [facility] 1.2.840.114 [id number] [facility] 00:00:00 00:00:00 Lorena Bansal 350.1.13.10 i ty of [place].2.[place] Profess[place] [id number] [address] 2020-06-03 2020-06-03 [facility] 1.2.840.114 [id number] 12:05:34 23:59:00 Encounter Lorena Bansal 350.1.13.10 [place] [id number] [place] [id number] [facility] 2020-06-03 2020-06-03 [facility] 1.2.840.114 [id number] [facility] 12:05:34 23:59:00 Encounter Lorena Bansal 350.1.13.10 ity of [place] 4[place]2.7.2.686 [place] [id number] [address] 2020-06-03 2020-06-03 Outpatient R KENAN [facility] [id number] [facility] 00:00:00 00:00:00 LORENA ity [facility] 2020-05-28 2020-05-28 [facility] [id number] 10:40:11 11:21:10 Visit Lorena Bansal 350.1.13.10 [place] 4.2.7.2.686 Professio [id number] [address] 2020-05-28 2020-05-28 [facility] [id number] [facility] 10:40:11 11:21:10 Visit Lorena Bansal 350.1.13.10 i ty of [place] 4.2.7.2.[place] Profess[place] [id number] [address] 2020-05-28 2020-05-28 [facility] [id number] [facility] 10:30:00 10:30:00 LORENA ity [facility] 2020-05-28 2020-05-28 Orders Doctor JOSH 1.2.840.114 [id number] Univers 00:00:00 00:00:00 Only Unassigned, NONA 350.1.13.10 ity of [place] [facility] [id number] Mihir as [id number] [address] 2019-07-25 2019-07-25 Outpatient [facility] [id number] Common 13:30:00 13:30:00 [facility] 2019-04-09 2019-04-09 Outpatient [facility] [id number] Common 14:30:00 14:30:00 [facility] Results Test Description Test Time Test Comments Results Result Comments Source POCT TEST 2022-10-26 16:02:00 Test Item Value Reference Range Interpretation Comme nts POCT PREG (test code = 1605) Negative On board controls acceptable with C Line (test code = 3574) Yes POCT PREG LOT # (test code = 3575) POCT PREG TEST DATE (test code = 3576) [id number] 16:02:00 Test Item Value Reference Range Interpretation Comments POCT PREG (test code = 1605) Negative On board controls acceptable with C Yes Line (test code = 3574) POCT PREG LOT # (test code = 3575) POCT PREG TEST DATE (test code = 3576) [facility] Confirmation (Lab Only)2021-11-22 13:50:31 Test Item Value Reference Range Interpretation Comments ABO & RH (test code O Positive Performe d at [facility] = 20) Laboratory Serv [facility] [facility] [address] [place] [id number] Free: [phone] A No. [id number] [facility] Confirmation (Lab Only)2021-11-22 13:50:31 Test Item Value Reference Range Interpretation Comments ABO & RH (test code O Positive Performe d at [facility] = 20) Laboratory Serv [facility] [address] [place] [phone] Free: [phone] A No. [id number] [facility] [id number] 12:33:00 Test Item Value Reference Range Interpretation Comments POCT PREG (test code = 1605) Negative On board controls acceptable with Yes C Line (test code = 3574) POCT PREG LOT # (test code = 3575) [id number] POCT PREG TEST DATE (test code = 3576) [facility] [id number] 12:33:00 Test Item Value Reference Range Interpretation Comments POCT PREG (test code = 1605) Negative On board controls acceptable with Yes C Line (test code = 3574) POCT PREG LOT # (test code = 3575) [id number] POCT PREG TEST DATE (test code = 3576) [facility] BETA HCG [id number] 22:03:20 Test Item Value Reference Range Interpretation Comments BETA HCG (test <2.39 See_Comment [Automated m essage] code = The system [employer] [id number]) generated this result transmit anup reference range : Non- fe male and male patien ts: <5 mIU/mL. The reference range was not used to interpret this result as normal/abnormal . ASUNCION (test code Gestational Age ? ? = ASUNCION) ?Range (mIU/mL) 1-10 ?Weeks ?[id number] Weeks ?[id number] Weeks ?8926-83498598-20 Weeks ?[id number] Biotin has been reported to cause a negative bias, interpret results relative to patient's use of biotin. [facility] METABOLIC PANEL (NA, K, CL, CO2, GLUCOSE, BUN, CREATININE, CA)2021-11-21 21:22:47 Test Item Value Reference Range Interpretation Comments NA (test code = 139 mmol/L 135-145 0621265179) K (test code = 4.6 mmol/L 3.5-5.0 7167575734) CL (test code = 102 mmol/L 98-108 2056923243) CO2 TOTAL (test code 28 mmol/L 23-31 = 0897435841) AGAP (test code = 2-16 1430623549) BUN (test code = 10 mg/dL 7-23 8343388288) GLUCOSE (test code = 93 mg/dL 70-110 9662816225) CREATININE (test code 0.53 mg/dL 0.50-1.04 = 4306324559) CALCIUM (test code = 9.5 mg/dL 8.6-10.6 3111563854) eGFR (test code = mL/min/1.73m2 3958536227) ASUNCION (test code = ASUNCION) Association of [...] or urine or abnormalities in imaging tests). [facility] Branch[facility] and Screen -2021-11-21 21:16:11 Test Item Value Reference Range Interpretation Comments ABO & RH (test code O Positive Performe d at [facility] = 20) [facility] [address] [place], [place] [id number] Free: [phone] A No. [id number] IAT (test code = Negative Performed a t [facility] 1185) Laboratory Serv [facility] [place], [place] [id number] Free: [phone] A No. [id number] [facility] WITH [id number] 20:52:43 Test Item Value Reference Range Interpretation Comments WBC (test code = See_Comment H [Automated 1277-2) message] The sy stem which generated this result transmitted reference range : 4.30 - 11.10 10*3/?L. The reference range was not used to interpret this result as normal/abnormal . RBC (test code = See_Comment [Automated 919-8) message] The sy stem which generated this [...] RDW-SD (test code = 47.4 fL 39.0-49.9 58466-3) RDW-CV (test code = 13.7 % 12.0-15.5 788-0) PLT (test code = See_Comment H [Automated 777-3) message] The sy stem which generated this result transmitted reference range : 166 - 358 10*3/ ?L. The reference r oliverio was not used to interpret this result as normal/abnormal . MPV (test code = 10.9 fL 9.5-12.9 17476-4) NRBC/100 WBC (test See_Comment [Automat ed code = 2602434541) message] The system which generated this result transmitted reference range : 0.0 - 10.0 /100 WBCs. The refer ence range was not u sed to interpret th is result as normal/abnormal . NRBC x10^3 (test code <0.01 See_Comment [Auto mated = 0096093917) message] The s ystem which generated this result transmitted reference range : 10*3/?L. The reference range was not used to interpret this result as normal/abnormal . GRAN MAT (NEUT) % 72.1 % (test code = 770-8) IMM GRAN % (test code 0.40 % = 1159585187) LYMPH % (test code = 20.6 % 736-9) MONO % (test code = 5.8 % 5905-5) EOS % (test code = 0.7 % 713-8) BASO % (test code = 0.4 % 706-2) GRAN MAT x10^3(ANC) 8.05 10*3/uL 1.88-7.09 H (test code = 7307870849) IMM GRAN x10^3 (test 0.05 10*3/uL 0.00-0.06 code = 8933951950) LYMPH x10^3 (test code 2.30 10*3/uL 1.32-3.29 = 731-0) MONO x10^3 (test code 0.65 10*3/uL 0.33-0.92 = 742-7) EOS x10^3 (test code = 0.08 10*3/uL 0.03-0.39 711-2) BASO x10^3 (test code 0.04 10*3/uL 0.01-0.07 = 704-7) Lab Interpretation Abnormal (test code = 64437-5) [facility]-21 20:34:08 Test Item Value Reference Range Interpretation Comments HGB A1C (test code = 5.2 % 4.0-5.7 4548-4) ASUNCION (test code = ASUNCION) Reference RangesNormal: <5.7%Prediabetes: 5.7 - 6.4%Diabetes: > 6.5% Lab Interpretation (test Normal code = 28065-5) [facility]"
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
[2023-06-07 03:11] LABS: Protime INR 1.22
[2023-06-07 03:12] LABS: Absolute Lymphocytes (CBC) 1.9 K/uL (0.7-4.9); Hematocrit 32.4 % (36.0-45.0); Lymphocytes % 17.5 % (15.3-44.8); MCV 81.8 fL (80-100); MPV 8.8 fL (7.6-11.3); Platelets 361 thou/uL (152-406); RBC Red Blood Cell Count 3.96 M/uL (3.86-4.86)
[2023-06-07 03:20] LABS: Specific Gravity 1.031 (1.005-1.030); Specific Gravity > 1.030 (1.005-1.030); Urine Bacteria None Seen /HPF (<20); Urine Bilirubin NEGATIVE (Negative); Urine Blood 3+ (OVER) (Negative); Urine Clarity Extremely Turbid (Clear); Urine Color Yellow (Yellow); Urine Glucose NEGATIVE (Negative); Urine Mucus 4+ /HPF (None Seen); Urine Protein 1+ (Negative); Urine RBC >50 /HPF (None Seen); Urine Urobilinogen Normal (Normal); Urine pH 5.5 (5.0-7.0)
[2023-06-07 03:21] LABS: Barbiturates NEGATIVE (NEGATIVE); Benzodiazepines NEGATIVE (NEGATIVE); Cocaine NEGATIVE (NEGATIVE); METHAMPHETAM NEGATIVE (NEGATIVE); Methadone NEGATIVE (NEGATIVE); Opiates NEGATIVE (NEGATIVE); Phencyclidine NEGATIVE (NEGATIVE); THC Cannibis POSITIVE (NEGATIVE)
[2023-06-07 03:53] LABS: ALT/SGPT 29 U/L (13-56); AST/SGOT 18 U/L (15-37); Albumin 3.4 g/dL (3.4-5.0); Alkaline Phosphatase 100 U/L (45-117); BUN Blood Urea Nitrogen 8 mg/dL (7-18); Bicarbonate 26 mEq/L (21-32); Bilirubin Direct 0.1 mg/dL (0-0.2); Bilirubin Indirect, Calculated 0.5 mg/dL (0.2-0.8); Bilirubin Total 0.6 mg/dL (0.2-1.0); Glomerular Filtration Rate 127 ml/min (=/>90); Glucose Level 96 mg/dL (74-106); Potassium 3.5 mEq/L (3.5-5.1); Protein, Total 7.2 g/dL (6.4-8.2); Sodium Level 138 mEq/L (136-145)
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
[2023-06-07 08:12] VITALS: O2SAT 99
[2023-06-07 08:13] VITALS: BP 118/72; TEMP 98.2
--- NOTE | 2023-06-11 12:18 | EKG ---
Test Date: 2023-06-07 Test Time: 03:05:55 Sales Assistant Institutional Sales: MALOU MEASUREMENT RESULTS: Intervals: Rate: 81 [place]: 138 QRSD: 104 QT: 372 QTc: 432 [place]: P: 6 [place]: 138 QRS: 17 T: 25 INTERPRETIVE STATEMENTS: Normal sinus rhythm Normal ECG Compared to ECG 11/15/2017 15:19:11 No significant changes Electronically Signed On 06-11-23 12:14:38 CDT by Jhon Euceda
== END 2023-06-07 07:47 ==
LOC: ER 02:32
DX: R45.851 Suicidal ideations (principal); F32.A Depression, unspecified
CPT/HCPCS: 36415; 80048; 80076; 80143; 80179; 80307; 81001; 81025; 82077; 85025; 85610; 85730; 87077; 87086; 87088; 87186; 93005; 99285

== ENCOUNTER 2023-09-11 14:32 | Emergency (ER) | payer OTHER, SELFPAY ==
--- OUTSIDE RECORDS SUMMARY | 2023-09-11 14:44 | XMS REPORT | Continuity of Care Document ---
:2000 Author Organization [facility] t Address [address] [place] [address] [place] [id number] Care Team Providers Name Role Phone Pcp, Patient Does Not Have A Primary Care Physician [id number] Abigail Platt Attending Clinician Unavailable LAQUITA COLEMAN Attending Clinician Unavailable LOVE BRUNNER Attending Clinician Unavailable LOVE BRUNNER Attending Clinician Unavailable Doctor Unassigned, [place] Attending Clinician Unavailable 2, Adc Lab Attending Clinician Unavailable Laquita Coleman MD Attending Clinician LORENA VALDOVINOS Attending Clinician Unavailable Only, Adc Test Attending Clinician Unavailable Lorena Valdovinos PA-C Attending Clinician LAQUITA COLEMAN Admitting Clinician Unavailable Laquita Coleman MD Admitting Clinician Payers Payer Name Policy Type Policy Number Effective Date Expiration Date Amarilys pete [facility] [id number] 2015 00:00:00 Problems Condition Condition Condition Status Onset Resolution Last Treating Co mments Source Name Details Category Date Date Treatment Clinician Date Encounter Encounter Disease Active Uni vers for IUD for IUD 08 ity of removal removal 00:00: [place] 00 [...] to chronic St blood loss blood loss [facility] Nexplanon Nexplanon Problem Active Com mon in place in place [facility] Menorrhagi Menorrhagi Problem Active C ommon a with a with [facility] regular regular - [facility] cycle cycle [facility] Intermenst Intermenst Problem Active C ommon rual rual [facility] bleeding bleeding - [facility] Possible Possible Diagnosis Active Com mon urinary urinary [facility] tract tract - [facility] infection infection [facility] Allergies, Adverse Reactions, Alerts Allergy Allergy Status Severity Reaction(s) Onset Inactive Treating Comm ents Source Name Type Date Date Clinician NO KNOWN Drug Active Univers ALLERGIE Class ity of S [facility] Social History Social Habit Start Date Stop Date Quantity Comments Source Sexual orientation Univer [facility] Exposure to 2022-10-16 2022-10-26 Not sure [facility] SARS-CoV-2 (event) 00:00:00 08:11:00 [facility] Tobacco use and 2022-10-26 2022-10-26 Smokeless Universit y of exposure 00:00:00 00:00:00 tobacco non-user [facility] [place] [facility] dical [place] Alcohol intake 2022-10-26 2022-10-26 Current University 00:00:00 00:00:00 non-drinker of [facility] alcohol Branch (finding) History of Social 2021-11-22 2021-11-22 Univers ity of function 00:00:00 00:00:00 [facility] Sex Assigned At [birth year] Universit y of 00:00:00 00:00:00 [facility] Smoking Status Start Date Stop Date Source Never smoked tobacco [facility] Medications Ordered Filled Start Stop Current Ordering Indication Dosage Frequency Signature Comments Components Source Medication Medication Date Date Medication? Clinician (SIG) Name Name escitalopra 2022-0 Yes 10mg Take 10 mg Univers m oxalate 1-12 by mouth ity of 10 mg 08:47: in the [place] tablet 15 morning. Medical Branch escitalopra 3-0 Yes 10mg Take 10 mg Univers m oxalate 1-12 by mouth ity of 10 mg 08:47: in the [place] tablet 15 morning. Medical Branch escitalopra 3-0 Yes 10mg Take 10 mg Univers m oxalate 1-12 by mouth ity of 10 mg 08:47: in the [place] tablet 15 morning. Medical Branch escitalopra 2022-0 Yes 10mg Take 10 mg Univers m oxalate 1-12 by mouth ity of 10 mg 08:47: in the [place] tablet 15 morning. Medical Branch NUVARING 2022-0 Yes [id number] 1{each} Insert 1 Univers 0.12-0.015 1-12 Each into ity of mg/24 hr 00:00: vagina [place] vaginal 00 once every Medica l insert month. Branch Insert vaginally and leave in place for 3 consecutiv e weeks, then remove for 1 week. NUVARING 2022-0 Yes [id number] 1{each} Insert 1 Univers 0.12-0.015 1-12 Each into ity of mg/24 hr 00:00: vagina [place] vaginal 00 once every Medica l insert month. Branch Insert vaginally and leave in place for 3 consecutiv e weeks, then remove for 1 week. NUVARING 2022-0 Yes [id number] 1{each} Insert 1 Univers 0.12-0.015 1-12 Each into ity of mg/24 hr 00:00: vagina [place] vaginal 00 once every Medica l insert month. Branch Insert vaginally and leave in place for 3 consecutiv e weeks, then remove for 1 week. FENTanyl PF 2021-0 Yes 25ug 25 mcg, [...] Nausea and Vomiting (N/V), PACU FENTanyl PF 2021-2021- No 25ug 25 mcg, Un rashad (SUBLIMAZE 11-22-08 Slow IV ity o f (PF)) 15:06: 18:26 Push, [place] injection 31 :17 Q5MIN PRN, Medi ralph 25 mcg 4 doses, Branch Starting on Sun11/22/21 at 0906, Until Sun11/22/21 at 1226, Routine, Pain (scale 7-10), PACU FENTanyl PF 2021-2021- No 25ug 25 mcg, Un rashad (SUBLIMAZE 11-22- Slow IV ity o f (PF)) 15:06: 18:26 Push, [place] injection 31 :17 Q5MIN PRN, Medi ralph 25 mcg 4 doses, Branch Starting on Sun11/22/21 at 0906, Until Sun11/22/21 at 1226, Routine, Pain (scale 4-6), PACU ondansetron 2021-2021- No 4mg 4 mg, Slow Univers (ZOFRAN 2 02-08 IV Push, ity of (PF)) 15:06: 18:26 PRN, 1 [place] injection 4 31 :17 dose, Medical mg Starting Branch on Sun11/22/21 at 0906, Until Sun11/22/21 at 1226, Routine, Nausea and Vomiting (N/V), PACU sodium 2021- Yes PRN, Univers chloride 2-08 Starting ity of 0.9 % 14:18: on Sun [place] irrigation 11/22/21 at Medi ralph solution 0818, Branch Until Discontinu ed, Intra-op sodium 2022021- No PRN, Univers chloride 2-08 Starting ity of 0.9 % 14:18: 18:26 on Sun irrigation 00 :17 11/22/21 at Medi ralph solution 0818, Branch Until Sun11/22/21 at 1226, Intra-op ferric 2021-0 Yes PRN, Univers subsulfate 2-08 Starting ity o f (MONSEL'S 14:16: on Sun [place] SOLUTION) 00 11/22/21 at Medic al solution 0816, Branch Until Discontinu ed, Routine, Intra-op ferric 2021- No PRN, Univers subsulfate 11-22-08 Starting ity of (MONSEL'S 14:16: 18:26 on [...] at 0630, Routine, DSU Pre-op lactated 2021-0 2021- No 1000mL at 42 Unive rs ringers IV 2-08 02-08 mL/hr, ity of infusion 12:30: 12:49 1,000 mL, Mihir as 1,000 mL 00 :00 IV Medical Infusion, Branch ONCE, 1 dose, On Sun11/22/21 at 0630, Routine, DSU Pre-op acetaminoph 0 Yes [id number] 650mg Take 2 Univers en 2-08 tablets by ity of (TYLENOL) 00:00: mouth [place] 325 mg 00 every 6 Medical tablet (six) Branch hours as needed for Pain (scale 1-3) or Pain (scale 4-6). ibuprofen Yes [id number] 600mg Take 1 Univers 600 mg 2-08 tablet by ity of tablet 00:00: mouth [place] 00 every 6 Medical (six) Branch hours as needed for Pain (scale 1-3) or Pain (scale 4-6). acetaminoph 2021-0 Yes [id number] 650mg Take 2 Univers en 2-08 tablets by ity of (TYLENOL) 00:00: mouth [place] 325 mg 00 every 6 Medical tablet (six) Branch hours as needed for Pain (scale 1-3) or Pain (scale 4-6). ibuprofen 2021-0 Yes [id number] 600mg Take 1 Univers 600 mg 2-08 tablet by ity of tablet 00:00: mouth [place] 00 every 6 Medical (six) Branch hours as needed for Pain (scale 1-3) or Pain (scale 4-6). acetaminoph 2021-0 Yes [id number] 650mg Take 2 Univers en 2-08 tablets by ity of (TYLENOL) 00:00: mouth [place] 325 mg 00 every 6 Medical tablet (six) Branch hours as needed for Pain (scale 1-3) or Pain (scale 4-6). ibuprofen 2021-0 Yes [id number] 600mg Take 1 Univers 600 mg 2-08 tablet by ity of tablet 00:00: mouth [place] 00 every 6 Medical (six) Branch hours as needed for Pain (scale 1-3) or Pain (scale 4-6). acetaminoph 2021-0 Yes [id number] 650mg Take 2 Univers en 2-08 tablets by ity of (TYLENOL) 00:00: mouth [place] 325 mg 00 every 6 Medical tablet (six) Branch hours as needed for Pain (scale 1-3) or Pain (scale 4-6). ibuprofen 2021-0 Yes [id number] 600mg Take 1 Univers 600 mg 2-08 tablet by ity of tablet 00:00: mouth [place] 00 every 6 Medical (six) Branch hours as needed for Pain (scale 1-3) or Pain (scale 4-6). acetaminoph 2021-0 2023- No [id number] 650mg Take 2 Univers en 2-08 01-12 tablets by ity of (TYLENOL) 00:00: 00:00 mouth [place] 325 mg 00 :00 every 6 Medical tablet (six) Branch hours as needed for Pain (scale 1-3) or Pain (scale 4-6). ibuprofen 2021-0 2023- No [id number] 600mg Take 1 Univers 600 mg 2-08 01-12 tablet by ity of tablet 00:00: 00:00 mouth [place] 00 :00 every 6 Medical (six) Branch hours as needed for Pain (scale 1-3) or Pain (scale 4-6). acetaminoph 2022- No [id number] 650mg Take 2 Univers en 11-22 tablets by ity of (TYLENOL) 00:00: 00:00 mouth [place] 325 mg 00 :00 every 6 Medical tablet (six) Branch hours as needed for Pain (scale 1-3) or Pain (scale 4-6). ibuprofen 2022- No [id number] 600mg Take 1 Univers 600 mg 11-22 tablet by ity of tablet 00:00: 00:00 mouth [place] 00 :00 every 6 Medical (six) Branch hours as needed for Pain (scale 1-3) or Pain (scale 4-6). No known No Univers medications 04 ity of 10:02: [place] 30 [facility] Branch Mirena Mirena Yes Morgan not Common [facility] defined [facility] iron iron Yes [place] 1 tab [facility] Vital Signs Vital Name Observation Time Observation Value Comments Source Systolic blood 2022-10-26 14:41:00 101 mm[Hg] Univer sity of [facility] Diastolic blood 2022-10-26 14:41:00 64 mm[Hg] Unive [facility] Heart rate 2022-10-26 14:41:00 71 /min [facility] Body temperature 2022-10-26 14:41:00 36.5 Solange [facility] Body weight 2022-10-26 14:41:00 95.618 kg [facility] Systolic blood 2021-11-22 15:40:00 103 mm[Hg] Univer sity of [facility] Diastolic blood 2021-11-22 15:40:00 61 mm[Hg] Unive [facility] Heart rate 2021-11-22 15:40:00 83 /min [facility] Oxygen saturation in 2021-11-22 15:40:00 95 /min [facility] Arterial blood by [facility] Pulse oximetry Branch Respiratory rate 2021-11-22 15:35:00 17 /min [facility] Body temperature 2021-11-22 14:47:00 36.33 Solange [facility] Body height 2021-11-10 16:58:00 152.4 cm [facility] Body weight 2021-11-10 16:58:00 102.1 kg [facility] BMI 2021-11-10 16:58:00 43.96 kg/m2 [facility] Body mass index 2021-11-10 16:58:00 98.89 % Unive rsity of (BMI) [Percentile] [place] Med ical Per age and sex Branch Systolic blood 2021-11-22 15:15:00 117 mm[Hg] Univer sity of pressure [facility] Diastolic blood 2021-11-22 15:15:00 64 mm[Hg] Unive rsity of pressure [facility] Heart rate 2021-11-22 15:15:00 78 /min [facility] Respiratory rate 2021-11-22 15:15:00 15 /min [facility] Oxygen saturation in 2021-11-22 15:15:00 95 /min [facility] Arterial blood by [facility] Pulse oximetry Branch Body temperature 2021-11-22 14:47:00 36.33 Solange [facility] Body height 2021-11-10 16:58:00 152.4 cm [facility] Body weight 2021-11-10 16:58:00 102.1 kg [facility] BMI 2021-11-10 16:58:00 43.96 kg/m2 [facility] Body mass index 2021-11-10 16:58:00 98.89 % Unive rsity of (BMI) [Percentile] [place] Med ical Per age and sex Branch Procedures Procedure Date / Time Performing Clinician Source Performed CONSENT/REFUSAL FOR 2022-10-26 14:12:33 Doctor Unassigned, No [facility] DIAGNOSIS AND TREATMENT [facility] ASSIGNMENT OF BENEFITS 2022-10-26 14:12:15 Doctor Unassigned, No [facility] Name [facility] Branch POCT TEST 2022-10-26 00:00:00 Laquita Coleman [facility] HYSTEROSCOPY 2021-11-22 13:34:00 [facility] 2021-11-22 13:34:00 Laquita Coleman [facility] REMOVAL [facility] ABORH CONFIRMATION (LAB 2021-11-22 12:43:00 [facility] Branch ABORH CONFIRMATION (LAB 2021-11-22 12:43:00 [facility] ONLY) Medical Branch POCT TEST 2021-11-22 12:32:00 Shukri Rivera [facility] POCT TEST 2021-11-22 12:32:00 Nicole [facility] COVID-19 (ID NOW RAPID 2021-11-21 20:18:00 Laquita Coleman [facility] TESTING) Medical [place] BASIC METABOLIC PANEL 2021-11-21 20:10:00 [facility] (NA, K, CL, CO2, Medical Branch GLUCOSE, BUN, CREATININE, CA) CBC WITH DIFF 2021-11-21 20:10:00 [facility] GLYCOSYLATED HEMOGLOBIN 2021-11-21 20:10:00 [facility] (A1C) [facility] HB ABO GROUPING 2021-11-21 20:10:00 Jared [facility] TOTAL BETA HCG ASSAY 2021-11-21 20:10:00 Laquita Coleman [facility] DSU PRE-OP 2021-10-27 06:01:00 Doctor Unassigned, No [facility] DSU PRE-OP 2021-10-27 06:01:00 Doctor Unassigned, No [facility] Encounters Start End Encounter Admission Attending Care Care Encounter Source Date/Time Date/Time Type Type Clinicians Facility Department ID 2022-09-12 Outpatient TAYO Platt [facility] [id number] Common 15:44:00 Abigail [address]247 [facility] 2022-07-11 Outpatient TAYO Platt [facility] [id number] Common 09:37:00 Abigail [facility] 2022-06-08 Outpatient Platt, [facility] [id number] Common 07:56:00 Abigail [facility] 2022-04-27 Outpatient Platt, [facility] [id number] Common 17:37:00 Abigail [facility] 2022-02-10 Outpatient Platt, [facility] [id number] Common 13:16:00 Abigail [facility] 2022-01-23 Outpatient Platt, [facility] [id number] Common 14:04:00 Abigail [facility] 2021-11-09 Outpatient LAQUITA MEHTA [facility] WOUND CARE CENTER CONSULTANT [id number] Univers 17:14:16 ity [facility] 2023-02-13 2023-02-13 Outpatient R LOVE BRUNNER [facility] U 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 2, Adc Lab [facility] [id number] Univers 09:45:00 10:00:00 Visit Laquita Coleman [id number] ity of [place] [id number] Ut dical NAL [address] [facility] 2022-10-26 2022-10-26 Outpatient R COLEMAN LAQUITA [facility] [id number] Univers 08:30:00 09:29:18 ity [facility] 2022-10-26 2022-10-26 Office Laquita Coleman [facility] [id number] Univers 08:30:00 09:29:18 Visit Cam KINJALDEBORA [id number] i ty of [place] 4[place].2.[place] [phone] [address] 2022-10-26 2022-10-26 Orders Doctor JOSH [id number] Univers 00:00:00 00:00:00 Only Unassigned, NONA [id number] [facility] [id number] [place] as [phone] [address] 2022-06-20 2022-06-20 Outpatient R KENAN [facility] [id number] Univers 10:45:00 10:45:00 LORENA ity [facility] 2022-06-05 2022-06-05 Outpatient R JARED [facility] [id number] Univers 08:30:00 08:30:00 ity [facility] 2022-04-12 2022-04-12 Telephone Jared Laquita [facility] [id number] Univers 00:00:00 00:00:00 Cam SARAH [id number] i ty [id number] [id number] [address] 2021-12-28 2021-12-28 Outpatient R JARED LAQUITA [facility] [id number] Univers 13:30:00 13:30:00 ity [facility] 2021-12-19 2021-12-19 Outpatient R JARED [facility] [id number] Univers 08:00:00 08:00:00 ity [facility] 2021-11-22 2021-11-22 Outpatient R JARED [facility] WOUND CARE CENTER CONSULTANT [id number] Univers 06:17:00 10:10:00 ity [facility] 2021-11-222021-11-22 [facility] Laquita Coleman [facility] [id number] Univers 06:17:00 10:10:00 Encounter Cam K[place]TON [id number] ity of [place] 4[place]2.7[place]2.[place] SURGICAL [id number] [facility] 071 Branch 2021-11-22 2021-11-22 Surgery Laquita Coleman [facility] [id number] Univers 07:59:00 09:15:00 Cam [place] 350.1.13.10 i ty of [place] 4[place]2.[place].2.[place] SURGICAL [id number] [facility] 020 Branch 2021-11-21 2021-11-21 Laboratory Only, Adc Test [facility] 1.2.840. [id number] Univers 09:15:00 09:30:00 Only Laquita ColemanTON [id number] ity of [place] 4[place]2.7.2.[place] C[place]US [id number] [facility] 353 Branch 2021-11-21 2021-11-21 Outpatient R LAQUITA COLEMAN [facility] [id number] Univers 09:15:00 09:15:00 ity of [facility] 2021-11-21 2021-11-21 Orders Doctor JOSH [id number] Univers 00:00:00 00:00:00 Only Unassigned, NONA 350.1.13.10 ity of [place] HOSPITAL 4.2.7.2.686 Mihir as [id number] [facility] 009 Branch 2021-10-28 2021-10-28 Prep For Laquita Coleman [facility] [id number] Univers 00:00:00 00:00:00 Surgery Enrique [place] 350.1.13.10 i ty [place] 4[place].2.[place] [id number] Ut dical [facility] [address] [facility] 2021-10-27 2021-10-27 Office Laquita Coleman [facility] [id number] Univers 13:00:00 13:41:27 Visit Cam [place] 350.1.13.10 i ty [place] 4[place] [id number] [address] 2021-10-27 2021-10-27 Outpatient R LAQUITA COLEMAN [facility] [id number] Univers 13:00:00 13:41:27 ity of [facility] 2021-10-27 2021-10-27 [facility] [id number] Univers 13:00:00 13:00:00 ity [facility] 2021-10-06 2021-10-06 Office Jared [facility] [id number] Univers 09:30:00 10:02:57 Visit Cam [place] 350.1.13.10 i ty [place] 4[place] [id number] [address] 2021-10-06 2021-10-06 Outpatient R JARED [facility] [id number] Univers 09:30:00 10:02:57 ity of [facility] 2021-09-22 2021-09-22 Outpatient R JARED [facility] [id number] Univers 13:30:00 13:30:00 ity [facility] 2021-09-21 2021-09-21 Telephone Jared [facility] 1.2.840.114 [id number] Univers 00:00:00 00:00:00 Cam [place] 350.1.13.10 i ty [place] 4[place].2.[place] [id number] [address] 2021-09-16 2021-09-16 Outpatient R JARED [facility] [id number] Univers 10:47:44 23:59:00 ity [facility] 2021-09-16 2021-09-16 Hospital Jared [facility] 1.2.840.114 [id number] Univers 10:47:44 23:59:00 Encounter Cam [place] 350.1.13.10 ity [place] 4[place]2.[place].2.[place] C[place] [id number] [facility] 806 Branch 2021-09-12 2021-09-12 Outpatient R LAQUITA COLEMAN [facility] [id number] Univers 10:30:00 11:19:04 ity of [facility] 2021-09-12 2021-09-12 Office Laquita Coleman [facility] [id number] Univers 10:01:44 11:19:04 Visit Enrique BANSAL 350.1.13.10 i ty of [place] 4.2.7.2.[place] [id number] Ut dical [address] 2021-09-12 2021-09-12 Orders Doctor JOSH 1.2.840.114 [id number] Univers 00:00:00 00:00:00 Only Unassigned, NONA 350.1.13.10 ity of [place] [facility] 4.2.7.2.686 Mihir as [id number] [facility] 009 Branch 2020-06-08 2020-06-08 Telephone [facility] 1.2.840.114 [id number] 00:00:00 00:00:00 Lorena Bansal 350.1.13.10 [place] 4.2.7.2.686 Professio [id number] [address] 2020-06-08 2020-06-08 Telephone [facility] 1.2.840.114 [id number] Univers 00:00:00 00:00:00 Lorena Bansal 350.1.13.10 i ty [place] Profess[place] [id number] Ut dic[address] 2020-06-03 2020-06-03 [facility] 1.2.840.114 [id number] 12:05:34 23:59:00 Encounter Lorena Bansal 350.1.13.10 [place] 4.2.7.2.686 [place] [id number] 2020-06-03 2020-06-03 [facility] 1.2.840.114 [id number] Univers 12:05:34 23:59:00 Encounter Lorena Bansal 350.1.13.10 ity of [place].2.[place] [id number] [facility] [address] [place] 2020-06-03 2020-06-03 [facility] [id number] Univers 00:00:00 00:00:00 LORENA [facility] 2020-05-28 2020-05-28 [facility] [id number] 10:40:11 11:21:10 Visit Lorena Bansal 350.1.13.10 [place] 4.2.7.2.686 Professio [id number] [address] 2020-05-28 2020-05-28 [facility] [id number] Univers 10:40:11 11:21:10 Visit Lorena [place] 350.1.13.10 i ty [place]2.[place].2.686 [place] [facility] [id number] Ut dical [address] 2020-05-28 2020-05-28 [facility] [id number] Univers 10:30:00 10:30:00 [facility] 2020-05-28 2020-05-28 Orders Doctor JOSH 1.2.840.114 [id number] Univers 00:00:00 00:00:00 Only Unassigned, NONA 350.1.13.10 ity of [place] [facility] 4.2.7.2.686 Mihir as [id number] [facility] [address] [place] 2019-07-25 2019-07-25 Outpatient [facility] [id number] Common 13:30:00 13:30:00 [facility] 2019-04-09 2019-04-09 Outpatient [facility] [id number] Common 14:30:00 14:30:00 [facility] Results Test Description Test Time Test Comments Results Result Comments Source POCT TEST 2022-10-26 16:02:00 Test Item Value Reference Range Interpretation Comme nts POCT PREG (test code = 1605) Negative On board controls acceptable with C Line (test code = 3574) Yes POCT PREG LOT # (test code = 3575) POCT PREG TEST DATE (test code = 3576) [id number] 16:02:00 Test Item Value Reference Range Interpretation Comments POCT PREG (test code = 1605) Negative On board controls acceptable with C Yes Line (test code = 3574) POCT PREG LOT # (test code = 3575) POCT PREG TEST DATE (test code = 3576) [facility] Confirmation (Lab Only)2021-11-22 13:50:31 Test Item Value Reference Range Interpretation Comments ABO & RH (test code O Positive Performe d at [facility] = 20) [facility] [address] [place] [address] Free: [phone] A No. [id number] [facility] Confirmation (Lab Only)2021-11-22 13:50:31 Test Item Value Reference Range Interpretation Comments ABO & RH (test code O Positive Performe d at [facility] = 20) [facility] [address] [place] [id number] Free: [phone] A No. [id number] [facility] [facility] [id number] 12:33:00 Test Item Value Reference Range Interpretation Comments POCT PREG (test code = 1605) Negative On board controls acceptable with Yes C Line (test code = 3574) POCT PREG LOT # (test code = 3575) [id number] POCT PREG TEST DATE (test code = 3576) [facility] [id number] 12:33:00 Test Item Value Reference Range Interpretation Comments POCT PREG (test code = 1605) Negative On board controls acceptable with Yes C Line (test code = 3574) POCT PREG LOT # (test code = 3575) [id number] POCT PREG TEST DATE (test code = 3576) [facility] BETA HCG [id number] 22:03:20 Test Item Value Reference Range Interpretation Comments BETA HCG (test <2.39 See_Comment [Automated m essage] code = The system AquaHydrateic h [id number]) generated this result transmit anup reference range : Non- fe male and male patien ts: <5 mIU/mL. The reference range was not used to interpret this result as normal/abnormal . ASUNCION (test code Gestational Age ? ? = ASUNCION) ?Range (mIU/mL) 1-10 ?Weeks ?[id number] Weeks ?99791-20704003-86 Weeks ?4789-17915144-01 Weeks ?3165-061333 Biotin has been reported to cause a negative bias, interpret results relative to patient's use of biotin. [facility] (NA, K, CL, CO2, GLUCOSE, BUN, CREATININE, CA)2021-11-21 21:22:47 Test Item Value Reference Range Interpretation Comments NA (test code = 139 mmol/L 135-145 7141105760) K (test code = 4.6 mmol/L 3.5-5.0 6674284220) CL (test code = 102 mmol/L 98-108 3672392366) CO2 TOTAL (test code 28 mmol/L 23-31 = 3387976868) AGAP (test code = 2-16 5741419288) BUN (test code = 10 mg/dL 7-23 8101163685) GLUCOSE (test code = 93 mg/dL 70-110 8470568156) CREATININE (test code 0.53 mg/dL 0.50-1.04 = 3458780762) CALCIUM (test code = 9.5 mg/dL 8.6-10.6 5292137920) eGFR (test code = mL/min/1.73m2 0473784374) ASUNCION (test code = ASUNCION) Association of [...] urine or abnormalities in imaging tests). [facility] -2021-11-21 21:16:11 Test Item Value Reference Range Interpretation Comments ABO & RH (test code O Positive Performe d at [facility] = 20) Laboratory Serv [facility] [place] [address] Free: [phone] A No. [id number] IAT (test code = Negative Performed a t [facility] 1185) Laboratory [facility] [place] [address] Free: [phone] A No. [id number] [facility] WITH [id number] 20:52:43 Test Item Value Reference Range Interpretation Comments WBC (test code = See_Comment H [Automated 0790-2) message] The sy stem which generated this result transmitted reference range : 4.30 - 11.10 10*3/?L. The reference range was not used to interpret this result as normal/abnormal . RBC (test code = See_Comment [Automated 699-8) message] The sy stem which generated this [...] RDW-SD (test code = 47.4 fL 39.0-49.9 86177-5) RDW-CV (test code = 13.7 % 12.0-15.5 788-0) PLT (test code = See_Comment H [Automated 777-3) message] The sy stem which generated this result transmitted reference range : 166 - 358 10*3/ ?L. The reference r oliverio was not used to interpret this result as normal/abnormal . MPV (test code = 10.9 fL 9.5-12.9 22858-0) NRBC/100 WBC (test See_Comment [Automat ed code = 9073573988) message] The system which generated this result transmitted reference range : 0.0 - 10.0 /100 WBCs. The refer ence range was not u sed to interpret th is result as normal/abnormal . NRBC x10^3 (test code <0.01 See_Comment [Auto mated = 6089360920) message] The s ystem which generated this result transmitted reference range : 10*3/?L. The reference range was not used to interpret this result as normal/abnormal . GRAN MAT (NEUT) % 72.1 % (test code = 770-8) IMM GRAN % (test code 0.40 % = 5110630269) LYMPH % (test code = 20.6 % 736-9) MONO % (test code = 5.8 % 5905-5) EOS % (test code = 0.7 % 713-8) BASO % (test code = 0.4 % 706-2) GRAN MAT x10^3(ANC) 8.05 10*3/uL 1.88-7.09 H (test code = 2040341170) IMM GRAN x10^3 (test 0.05 10*3/uL 0.00-0.06 code = 0604055282) LYMPH x10^3 (test code 2.30 10*3/uL 1.32-3.29 = 731-0) MONO x10^3 (test code 0.65 10*3/uL 0.33-0.92 = 742-7) EOS x10^3 (test code = 0.08 10*3/uL 0.03-0.39 711-2) BASO x10^3 (test code 0.04 10*3/uL 0.01-0.07 = 704-7) Lab Interpretation Abnormal (test code = 19667-2) [facility]GLY[facility]EM[facility]GLOB[facility] (A1C)2021-11-21 20:34:08 Test Item Value Reference Range Interpretation Comments HGB A1C (test code = 5.2 % 4.0-5.7 4548-4) ASUNCION (test code = ASUNCION) Reference RangesNormal: <5.7%Prediabetes: 5.7 - 6.4%Diabetes: > 6.5% Lab Interpretation (test Normal code = 03683-2) [facility]"
--- NOTE | 2023-09-11 16:53 | RAD REPORT ---
EXAM DESCRIPTION: RAD - Chest Single View - 09/11/2023 4:47 pm CLINICAL HISTORY: COUGH Chest pain. COMPARISON: Chest Pa And Lat (2 Views) dated 12/21/2016; Chest Single View dated 02/11/2016 FINDINGS: Portable technique limits examination quality. The lungs are grossly clear. The heart is normal in size. No displaced fractures. IMPRESSION: No acute intrathoracic process suspected.
[2023-09-11 17:00] LABS: Specific Gravity 1.025 (1.005-1.030)
[2023-09-11 17:25] LABS: Specific Gravity 1.025 (1.005-1.030); Urine Bacteria None Seen /HPF (<20); Urine Bilirubin NEGATIVE (Negative); Urine Blood Negative (Negative); Urine Clarity Turbid (Clear); Urine Color Light-Yellow (Yellow); Urine Glucose NEGATIVE (Negative); Urine Mucus 1+ /HPF (None Seen); Urine Protein NEGATIVE (Negative); Urine RBC <5 /HPF (None Seen); Urine Urobilinogen Normal (Normal); Urine pH 6.5 (5.0-7.0)
--- NOTE | 2023-09-11 17:43 | EDPHYS ---
Physician Documentation [facility] Name: Wilton Kapadia Age: 23 yrs Sex: Female : 2000 Arrival Date: 09/11/2023 Time: 14:32 Bed DIS3 Private MD: ED Physician Ganesh Oliveira HPI: 09/11 14:59 This 23 yrs old Female presents to ER via Unassigned with complaints of Sore kb Throat, Nausea. 14:59 Patient is a 23-year-old female who presents for sore throat, nausea, pain anterior kb left lower ribs, cough and malaise that started 2 days ago. Denies fever.. Historical: - Allergies: 15:55 No Known Allergies; aa5 - PMHx: 15:55 Anxiety; depressive disorder; aa5 - PSHx: 15:55 Tonsillectomy; aa5 - Immunization history:: Adult Immunizations unknown. - Social history:: Smoking status: Patient denies any tobacco usage or history of. Patient uses street drugs, marijuana. ROS: 14:52 MS/Extremity: Negative for injury and deformity, kb 14:52 Constitutional: Positive for body aches, malaise, 14:52 ENT: Positive for sore throat, 14:52 Respiratory: Positive for cough, 14:52 Abdomen/GI: Positive for nausea, Negative for abdominal pain, 14:52 Neuro: Positive for headache, 14:52 All other systems are negative, Exam: 14:52 Constitutional: This is a well developed, well nourished patient who is awake, alert, kb and in no acute distress. Head/Face: Normocephalic, atraumatic. ENT: Moist Mucous membranes Cardiovascular: Regular rate Respiratory: Respirations even and unlabored. No increased work of breathing. Talking in full sentences Abdomen/GI: Soft, non-tender. No distention Skin: Warm, dry with normal turgor. Normal color. MS/ Extremity: Pulses equal, no cyanosis. Neurovascular intact. Full, normal range of motion. Neuro: Awake and alert, GCS 15, oriented to person, place, time, and situation. Moves all extremities. Normal gait. Vital Signs: 15:55 BP 115 / 67; Pulse 77; Resp 18 S; Temp 98.6(TE); Pulse Ox 100% on R/A; aa5 MDM: 14:42 Patient medically screened. kb 14:59 Differential diagnosis: flu, covid, uri, strep. Data reviewed: vital signs, nurses kb notes. 17:43 Counseling: I had a detailed discussion with the patient and/or guardian regarding the kb historical points, exam findings, and any diagnostic results supporting the discharge/admit diagnosis, lab results, radiology results, the need for outpatient follow up, a family practitioner, to return to the emergency department if symptoms worsen or persist or if there are any questions or concerns that arise at home. 09/11 14:46 Order name: Flu; Complete Time: 17:10 kb 09/11 14:46 Order name: COVID-19 SARS RT PCR; Complete Time: 17:13 kb 09/11 14:46 Order name: Strep kb 09/11 15:06 Order name: Test, Urine; Complete Time: 17:42 kb 09/11 15:06 Order name: Urinalysis w/ reflexes; Complete Time: 17:42 kb 09/11 17:08 Order name: Throat Culture [facility] 09/11 14:46 Order name: Chest Single View XRAY; Complete Time: 16:54 kb Administered Medications: No medications were administered Disposition: 16:49 I was immediately available on-site in the Emergency Department for consultation in the ms3 care of the patient. Disposition Summary: 09/11/23 17:43 Discharge Ordered Notes: Location: Home kb Condition: Stable kb Diagnosis - Acute upper respiratory infection, unspecified kb Followup: kb - With: Emergency Department - When: As needed - Reason: Worsening of condition Followup: kb - With: Private Physician - When: 2 - 3 days - Reason: Recheck today's complaints, Continuance of care, Re-evaluation by your physician Discharge Instructions: - Discharge Summary Sheet kb - Upper Respiratory Infection, Adult, [id number] kb - Viral Respiratory Infection, Jmtu-Yn-Adah kb Forms: - Work release form kb - Medication Reconciliation Form kb - Thank You Letter kb - Antibiotic Education kb - Prescription Opioid Use kb - Patient Portal Instructions kb - Leadership Thank You Letter kb Signatures: Dispatcher [employer] EDBrielle Moore, REDC Joelle Aceves RN RN aa5 Ganesh Oliveira, DO ms3
--- NOTE | 2023-09-11 17:43 | ER ---
Nurse's Notes [facility] Name: Wilton Kapadia Age: 23 yrs Sex: Female : 2000 Arrival Date: 09/11/2023 Time: 14:32 Bed DIS3 Private MD: Diagnosis: Acute upper respiratory infection, unspecified Presentation: 09/11 15:55 Chief complaint: Patient states: sore throat, nausea, and left lower back pain that aa5 began 2 days ago. 15:55 Coronavirus screen: sore throat. Ebola Screen: Patient denies travel to an [facility] Ebola-affected area in the 21 days before illness onset. Initial Sepsis Screen: Does the patient meet any 2 criteria? No. Patient's initial sepsis screen is negative. Does the patient have a suspected source of infection? No. Patient's initial sepsis screen is negative. Risk Assessment: Do you want to hurt yourself or someone else? Patient reports no desire to harm self or others. Onset of symptoms was August 2023. 15:55 Acuity: ARMANI 4 aa5 15:55 Method Of Arrival: Ambulatory aa5 Triage Assessment: 17:54 General: Appears in no apparent distress. Behavior is calm, cooperative. iw Historical: - Allergies: 15:55 No Known Allergies; aa5 - PMHx: 15:55 Anxiety; depressive disorder; aa5 - PSHx: 15:55 Tonsillectomy; aa5 - Immunization history:: Adult Immunizations unknown. - Social history:: Smoking status: Patient denies any tobacco usage or history of. Patient uses street drugs, marijuana. Screenin:54 [facility] ED Fall Risk Assessment (Adult) Score/Fall Risk Level 0 - 2 = Low Risk. Abuse iw screen: Denies threats or abuse. Denies injuries from another. Nutritional screening: No deficits noted. Tuberculosis screening: No symptoms or risk factors identified. Assessment: 17:45 General: Appears in no apparent distress. Behavior is calm, cooperative. Pain: iw Complains of pain in back. Neuro: Level of Consciousness is awake, alert, obeys commands, Oriented to person, place, time, situation, Moves all extremities. Full function. Cardiovascular: Patient's skin is warm and dry. Respiratory: Airway is patent Respiratory effort is even, unlabored, Breath sounds are clear. EENT: Throat is clear. Derm: Skin is intact, is healthy with good turgor. Vital Signs: 15:55 BP 115 / 67; Pulse 77; Resp 18 S; Temp 98.6(TE); Pulse Ox 100% on R/A; aa5 ED Course: 14:42 Patient arrived in ED. mg5 14:42 [facility] Blanca [facility]C [facility] kb 14:42 Ganesh Oliveira DO is Attending Physician. kb 15:55 Arm band placed on. aa5 16:00 COVID swab sent to lab. Flu and/or RSV swab sent to lab. Strep swab sent to lab. aa5 16:05 Triage completed. aa5 16:49 Chest Single View XRAY In Process Unspecified. EDMS 17:45 Patient has correct armband on for positive identification. iw 17:45 Provided Education on: . iw 17:54 No provider procedures requiring assistance completed. Patient did not have IV access iw during this emergency room visit. 17:55 Clair Lima, RN is Primary Nurse. iw Administered Medications: No medications were administered Medication: 17:45 VIS not applicable for this client. iw Outcome: 17:43 Discharge ordered by MD. kb 17:54 Discharged to home ambulatory, iw 17:54 Condition: good 17:54 Discharge instructions given to patient, Instructed on discharge instructions, follow up and referral plans. Demonstrated understanding of instructions, follow-up care, 17:55 Patient left the ED. iw Signatures: Dispatcher [employer] EDLA Brielle Blanca FNP-C FNP-Ckb Williams, Irene, RN RN Joelle Hutson RN RN [facility] Hayley Jordan mg5
[2023-09-11 18:20] VITALS: BP 115/67; TEMP 98.6; O2SAT 100
== END 2023-09-11 17:55 | disposition home or self-care (01) ==
LOC: ER 14:32
DX: J06.9 Acute upper respiratory infection, unspecified (principal); Z11.52 Encounter for screening for COVID-19
CPT/HCPCS: 71045; 81001; 81025; 87070; 87081; 87635; 87804; 99283

== ENCOUNTER 2024-05-22 21:33 | Emergency (ER) | payer SELFPAY ==
--- OUTSIDE RECORDS SUMMARY | 2024-05-22 21:37 | XMS REPORT | Continuity of Care Document ---
Author Name Unknown Address [address] [facility] [address] [place] [address] [facility] Address [address] [facility] [address] [place] [address] Care Team Providers Care Manager Part Name Role Phone Pcp, Patient Does Not Have A Primary Care Physic mary Abigail Platt Attending Clinician Unavailable LAQUITA COLEMAN Attending Clinician Unavailable LOVE BRUNNER Attending Clinician LOVE Siu Attending Clinician Nino butt Doctor Unassigned, Chelan Attending Clinician U navailable 2, Adc Lab Attending Clinician Unavailable Laquita Coleman MD Attending Clinician [phone] LOERNA VALDOVINOS Attending Clinician Unavailable Only, Adc Test Attending Clinician Unavailable Lorena Valdovinos PA-C Attending Clinician [phone] LAQUITA COLEMAN Admitting Clinician Unavailable Laquita Coleman MD Admitting Clinician [phone] Payers Payer Name Policy Type Policy Number Effective Date Expirati on Date Source [facility] [id number] 2015 00:00:00 Problems Condition Name Condition Details Condition Category Status Onset Date Resolution Date Last Treatment Date Treating Clinician Comments Source Encounter for IUD removal Encounter for IUD removal Disease Active 11-22 00:00: 00 [facility] Status post hysterosco py Status post hysterosco py Disease Active - 00:00: 00 [facility] Intrauteri ne contracept crystal device threads lost, initial encounter Intrauteri ne contracept crystal device threads lost, initial encounter Disease Active 2020-10 00:00: 00 [facility] Morbid obesity with body mass index of 40.0-49.9 Morbid obesity with body mass index of 40.0-49.9 Disease Active 8 00:00: 00 [facility] Iron deficiency anemia due to chronic blood loss Iron deficiency anemia due to chronic blood loss Problem Active [facility] Nexplanon in place Nexplanon in place Problem Active [facility] Menorrhagi a with regular cycle Menorrhagi a with regular cycle Problem Active [facility] Intermenst rual bleeding Intermenst rual bleeding Problem Active [facility] Possible urinary tract infection Possible urinary tract infection Diagnosis Active [facility] Allergies, Adverse Reactions, Alerts Allergy Name Allergy Type Status Severity Reaction(s) Onset Date Inactive Date Treating Clinician Comments Source NO KNOWN ALLERGIE S Drug Class Active [facility] Social History Social Habit Start Date Stop Date Quantity Comments Source [facility] to SARS-CoV-2 (event) 2022-10-16 00:00:00 2022-10-26 08:11:00 Not sure [facility] Tobacco use and exposure 2022-10-26 00:00:00 2022-10-26 00:00:00 Smokeless tobacco non-user [facility] Alcohol intake 2022-10-26 00:00:00 2022-10-26 00:00:00 Current non-drinker of alcohol (finding) [facility] History of Social function 2021-11-22 00:00:00 2021-11-22 00:00:00 [facility] Sex Assigned At 2002 00:00:00 2000 00:00:00 [facility] Smoking Status Start Date Stop Date Source Never smoked tobacco [facility] Medications Ordered Medication Name Filled Medication Name Start Date Stop Date Current Medication? Ordering Clinician Indication Dosage Frequency Signature (SIG) Comments Components Source escitalopra m oxalate 10 mg tablet 10-26 08:47: 15 Yes 10mg Take 10 mg by mouth in the morning. [facility] NUVARING 0.12-0.015 mg/24 hr vaginal insert 10-26 00:00: 00 Yes [id number] 1{each} Insert 1 Each into vagina once every month. Insert vaginally and leave in place for 3 consecutiv e weeks, then remove for 1 week. [facility] ondansetron (ZOFRAN (PF)) injection 4 mg 11-22 15:06: 31 Yes 4mg 4 mg, Slow IV Push, PRN, 1 dose, Starting on Sun11/22/21 at 0906, Until Discontinu ed, Routine, Nausea and Vomiting (N/V), PACU [facility] FENTanyl PF (SUBLIMAZE (PF)) injection 25 mcg 11-22 15:06: 31 11-22 18:26 :17 No 25ug 25 mcg, Slow IV Push, Q5MIN PRN, 4 doses, Starting on Sun11/22/21 at 0906, Until Sun11/22/21 at 1226, Routine, Pain (scale 7-10), PACU [facility] sodium chloride 0.9 % irrigation solution 11-22 14:18: 00 Yes PRN, Starting on Sun11/22/21 at 0818, Until Discontinu ed, Intra-op [facility] ferric subsulfate (MONSEL'S SOLUTION) solution 11-22 14:16: 00 Yes PRN, Starting on Sun11/22/21 at 0816, Until Discontinu ed, Routine, Intra-op [facility] lactated ringers IV infusion 1,000 mL 11-22 12:30: 00 11-22 12:49 :00 No 1000mL at 42 mL/hr, 1,000 mL, IV Infusion, ONCE, 1 dose, On Sun11/22/21 at 0630, Routine, DSU Pre-op [facility] acetaminoph en (TYLENOL) 325 mg tablet 11-22 00:00: 00 10-26 00:00 :00 No [id number] 650mg Take 2 tablets by mouth every 6 (six) hours as needed for Pain (scale 1-3) or Pain (scale 4-6). [facility] ibuprofen 600 mg tablet 11-22 00:00: 00 10-26 00:00 :00 No [id number] 600mg Take 1 tablet by mouth every 6 (six) hours as needed for Pain (scale 1-3) or Pain (scale 4-6). [facility] No known medications 11-18 10:02: 30 No [facility] Mirena Mirena Yes Morgan Perez not defined [facility] iron iron Yes Morgan Gri 1 tab [facility] Vital Signs Vital Name Observation Time Observation Value Comments S ource Systolic blood pressure 2022-10-26 14:41:00 101 mm[Hg] [facility] Diastolic blood pressure 2022-10-26 14:41:00 64 mm[Hg] [facility] Heart rate 2022-10-26 14:41:00 71 /min [facility] Body temperature 2022-10-26 14:41:00 36.5 Solange [facility] Body weight 2022-10-26 14:41:00 95.618 kg [facility] Systolic blood pressure 2021-11-22 15:40:00 103 mm[Hg] [facility] Diastolic blood pressure 2021-11-22 15:40:00 61 mm[Hg] [facility] Heart rate 2021-11-22 15:40:00 83 /min [facility] Oxygen saturation in Arterial blood by Pulse oximetry 2021-11-22 15:40:00 95 /min [facility] Respiratory rate 2021-11-22 15:35:00 17 /min [facility] Body temperature 2021-11-22 14:47:00 36.33 Sol[facility] Body height 2021-11-10 16:58:00 152.4 cm [facility] Body weight 2021-11-10 16:58:00 102.1 kg [facility] BMI 2021-11-10 16:58:00 43.96 kg/m2 [facility] Body mass index (BMI) [Percentile] Per age and sex 2021-11-10 16:58:00 98.89 % [facility] Systolic blood pressure 2021-11-22 15:15:00 117 mm[Hg] [facility] Diastolic blood pressure 2021-11-22 15:15:00 64 mm[Hg] [facility] Heart rate 2021-11-22 15:15:00 78 /min [facility] Respiratory rate 2021-11-22 15:15:00 15 /min [facility] Oxygen saturation in Arterial blood by Pulse oximetry 2021-11-22 15:15:00 95 /min [facility] Body temperature 2021-11-22 14:47:00 36.33 Solange [facility] Body height 2021-11-10 16:58:00 152.4 cm [facility] Body weight 2021-11-10 16:58:00 102.1 kg [facility] BMI 2021-11-10 16:58:00 43.96 kg/m2 [facility] Body mass index (BMI) [Percentile] Per age and sex 2021-11-10 16:58:00 98.89 % [facility] Procedures Procedure Date / Time Performed Performing Clinician Source CONSENT/REFUSAL FOR DIAGNOSIS AND TREATMENT 2022-10-26 14:12:33 Doctor Unassigned, Chelan [facility] ASSIGNMENT OF BENEFITS 2022-10-26 14:12:15 Docto r Unassigned, Chelan [facility] POCT TEST 2022-10-26 00:00:00 Laquita Coleman [facility] HYSTEROSCOPY 2021-11-22 13:34:00 Laquita Coleman [facility] INTRAUTERINE DEVICE REMOVAL 2021-11-22 13:34:00 Laquita Coleman [facility] ABORH CONFIRMATION (LAB ONLY) 2021-11-22 12:43:00 [facility] (LAB ONLY[facility] 2021-11-22 12:43:00 [facility] 2021-11-22 12:32:00 Shukri Rivera [facility] POCT TEST 2021-11-22 12:32:00 Shukri Rivera [facility] COVID-19 (ID NOW RAPID TESTING) 2021-11-21 20:18:00 [facility] BASIC METABOLIC PANEL (NA, K, CL, CO2, GLUCOSE, BUN, CREATININE, CA) 2021-11-21 20:10:00 [facility] CBC WITH DIFF 2021-11-21 20:10:00 Laquita Coleman [facility] GLYCOSYLATED HEMOGLOBIN (A1C) 2021-11-21 20:10:00 [facility] HB ABO GROUPING 2021-11-21 20:10:00 Laquita Coleman [facility] TOTAL BETA HCG ASSAY 2021-11-21 20:10:00 [facility] DSU PRE-OP 2021-10-27 06:01:00 Doctor Unass igned, Chelan [facility] DSU PRE-OP 2021-10-27 06:01:00 Doctor Unass igned, Chelan [facility] Encounters Start Date/Time End Date/Time Encounter Type Admission Type Attending Critical Access Hospital Care Facility Care Department Encounter ID Source 2022-09-12 15:44:00 [facility] [id number] [facility] 2022-07-11 09:37:00 Outpatient Abigail Platt [facility] [id number] [facility] 2022-06-08 07:56:00 Outpatient Abigail Platt [facility] [id number] [facility] 2022-04-27 17:37:00 Outpatient Abigail Platt [facility] [id number] [facility] 2022-02-10 13:16:00 Out[facility] [id number] [facility] 2022-01-23 14:04:00 Out[facility] [id number] [facility] 2021-11-09 17:14:16 Outpatient R LAQUITA COLEMAN [facility] [employer] [id number] [facility] 2023-02-13 13:30:00 2023-02-13 13:30:00 Outpatient R HERNANDEZ-TRAVON S, LOVE HERNANDEZ-TRAVON S, LOVE [facility] [id number] [facility] 2023-01-25 08:00:00 2023-01-25 08:00:[address] 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 [id number] [facility] 2022-10-26 08:30:00 2022-10-26 09:29:18 Office Visit Laquita Coleman [facility] 1..840.114 350.1.13.10 4.2.7.2.686 [id number] [facility] 2022-10-26 00:00:00 2022-10-26 00:00:00 Orders Only Doctor Unassigned, Chelan [facility] 1..840.114 350.1.13.10 4.2.7.2.686 [id number] [facility] 2022-06-20 10:45:00 2022-06-20 10:45:[address] [facility] [id number] [facility] 2022-06-05 08:30:00 2022-06-05 08:30:[address] [facility] [id number] [facility] 2022-04-12 00:00:00 2022-04-12 00:00:00 Telephone Laquita Coleman [facility] 1..840.114 350.1.13.10 4.2.7.2.686 [id number] [facility] 2021-12-28 13:30:00 2021-12-28 13:30:00 Outpatient R LAQUITA COLEMAN [facility] [id number] [facility] 2021-12-19 08:00:00 2021-12-19 08:00:00 Outpatient R LAQUITA COLEMAN [facility] [id number] [facility] 2021-11-22 06:17:00 2021-11-22 10:10:00 Outpatient R LAQUITA COLEMAN [facility] [employer] [id number] [facility] 2021-11-22 06:17:00 2021-11-22 10:10:00 Hospital Encounter Laquita Coleman [facility] 1..840.114 350.1.13.10 4.2.7.2.686 [id number] [facility] 2021-11-22 07:59:00 2021-11-22 09:15:00 Surgery Coleman, Laquita [facility] 1.2.840.114 350.1.13.10 4.2.7.2.686 [id number] [facility] 2021-11-21 09:15:00 2021-11-21 09:30:00 Laboratory Only Only, Adc Test Laquita Coleman [facility] 1.2.840.114 350.1.13.10 4.2.7.2.686 [id number] [facility] 2021-11-21 09:15:00 2021-11-21 09:15:00 Outpatient R LAQUITA COLEMAN [facility] [id number] [facility] 2021-11-21 00:00:00 2021-11-21 00:00:00 Orders Only Doctor Unassigned, Chelan [facility] 1.2.840.114 350.1.13.10 4.2.7.2.686 [id number] [facility] 2021-10-28 00:00:00 2021-10-28 00:00:00 Prep For Surgery [facility] 1.2.840.114 350.1.13.10 4.2.7.2.686 [id number] [facility] 2021-10-27 13:00:00 2021-10-27 13:41:27 Office Visit Laquita Coleman [facility] 1.2.840.114 350.1.13.10 4.2.7.2.686 [id number] [facility] 2021-10-27 13:00:00 2021-10-27 13:41:27 Outpatient R LAQUITA COLEMAN [facility] [id number] [facility] 2021-10-27 13:00:00 2021-10-27 13:00:00 [id number] 2021-10-06 09:30:00 2021-10-06 10:02:57 Office Visit Laquita Coleman [facility] 1.2.840.114 350.1.13.10 4.2.7.2.686 [id number] [facility] 2021-10-06 09:30:00 2021-10-06 10:02:57 Outpatient R LAQUITA COLEMAN [facility] [id number] [facility] 2021-09-22 13:30:00 2021-09-22 13:30:00 Outpatient R LAQUITA COLEMAN [facility] [id number] [facility] 2021-09-21 00:00:00 2021-09-21 00:00:00 Telephone Laquita Coleman [facility] 1.2.840.114 350.1.13.10 4.2.7.2.686 [id number] [facility] 2021-09-16 10:47:44 2021-09-16 23:59:00 Outpatient R LAQUITA CO[address]MAN [facility] [id number] [facility] 2021-09-16 10:47:44 2021-09-16 23:59:00 Hospital Encounter Laquita Coleman [facility] 1.2.840.114 350.1.13.10 4.2.7.2.686 [id number] [facility] 2021-09-12 10:30:00 2021-09-12 11:19:04 Outpatient R LAQUITA CO[address]MAN [facility] [id number] [facility] 2021-09-12 10:01:44 2021-09-12 11:19:04 Office Visit Laquita Coleman [facility] 1.2.840.114 350.1.13.10 4.2.7.2.686 [id number] [facility] 2021-09-12 00:00:00 2021-09-12 00:00:00 Orders Only Doctor Unassigned, Chelan [facility] 1.2.840.114 350.1.13.10 4.2.7.2.686 [id number] [facility] 2020-06-08 00:00:00 2020-06-08 00:00:00 Telephone Lorena Valdovinos [facility] 1.2.840.114 350.1.13.10 4.2.7.2.686 [id number] 2020-06-08 00:00:00 2020-06-08 00:00:00 Telephone Lorena Valdovinos [facility] 1.2.840.114 350.1.13.10 4.2.7.2.686 [id number] [facility] 2020-06-03 12:05:34 2020-06-03 23:59:00 Hospital Encounter Lorena Valdovinos [facility] 1.2.840.114 350.1.13.10 4.2.7.2.686 [id number] 2020-06-03 12:05:34 2020-06-03 23:59:00 Hospital Encounter Lorena Valdovinos [facility] 1.2.840.114 350.1.13.10 4.2.7.2.686 [id number] [facility] 2020-06-03 00:00:00 2020-06-03 00:00:00 Outpatient R LORENA VALDOVINOS [facility] [id number] [facility] 2020-05-28 10:40:11 2020-05-28 11:21:10 Office Visit Lorena Valdovinos [facility] 1.2.840.114 350.1.13.10 4.2.7.2.686 [id number] 2020-05-28 10:40:11 2020-05-28 11:21:10 Office Visit Lorena Valdovinos [facility] 1.2.840.114 350.1.13.10 4.2.7.2.686 [id number] [facility] 2020-05-28 10:30:00 2020-05-28 10:30:00 Outpatient R LORENA VALDOV[address]OS [facility] [id number] [facility] 2020-05-28 00:00:00 2020-05-28 00:00:00 Orders Only Doctor Unassigned, Chelan [facility] 1.2.840.114 350.1.13.10 4.2.7.2.686 [id number] [facility] 2019-07-25 13:30:00 2019-07-25 13:30:00 [facility] [id number] [facility] 2019-04-09 14:30:00 2019-04-09 14:30:00 Outpatient [facility] [id number] [facility] Results Test Description Test Time Test Comments Results Result Co mments Source [id number] 16:02:00* Test Item Value Reference Range Interpretation Comme nts POCT PREG (test code = 1605) Negative On board controls acceptable with C Line (test code = 3574) Yes POCT PREG LOT # (test code = 3575) POCT PREG TEST DATE ( test code = 3576) [facility] ([facility] Only)2021-11-22 13:50:31* Test Item Value Reference Range Interpretation Comme nts ABO & RH (test code = 20) O Positive Performed at [facility] Laboratory Services - [facility] [address] [place] [phone] Free: [phone] No. [id number] [facility] Confirm[facility] (Lab Only)2021-11-22 13:50:31* Test Item Value Reference Range Interpretation Comme nts ABO & RH (test code = 20) O Positive Performed at [facility] Laboratory Services - [facility] Blood [address] [place] [phone] Free: [phone] No. [id number] [facility] [id number] 12:33:00* Test Item Value Reference Range Interpretation Comme nts POCT PREG (test code = 1605) Negative On board controls acceptable with C Line (test code = 3574) Yes POCT PREG LOT # (test code = 3575) [id number] POCT PREG TEST DATE ( test code = 3576) [facility] [id number] 12:33:00* Test Item Value Reference Range Interpretation Comme nts POCT PREG (test code = 1605) Negative On board controls acceptable with C Line (test code = 3574) Yes POCT PREG LOT # (test code = 3575) [id number] POCT PREG TEST DATE ( test code = 3576) [facility] BETA HCG [id number] 22:03:20* Test Item Value Reference Range Interpretation Comme nts BETA HCG (test code = 6976996541) <2.39 See_Comment [Automated Oscar Techa ge] The system which generated this result transmitted reference range: Non- female and male patients: <5 mIU/mL. The reference range was not used to interpret this result as normal/abnormal. ASUNCION (test code = ASUNCION) Gestational Age ?Range (mIU/mL) 1-10 ?Weeks ?[id number] Weeks ?30424-27359649-18 Weeks ?6678-53377099-18 Weeks ?[id number] Biotin has been reported to cause a negative bias, interpret results relative to patient's use of biotin. [facility] METABOLIC PANEL (NA, K, CL, CO2, GLUCOSE, BUN, CREATININE, CA)2021-11-21 21:22:47* Test Item Value Reference Range Interpretation Comme nts NA (test code = 0479968314) 139 mmol/L 135-145 K (test code = 9535327198) 4.6 mmol/L 3.5-5.0 CL (test code = 7812761545) 102 mmol/L 98-108 CO2 TOTAL (test code = 1802661177) 28 mmol/L 23-31 AGAP (test code = 2436587925) 2-16 BUN (test code = 4746994156) 10 mg/dL 7-23 GLUCOSE (test code = 7153230977) 93 mg/dL 70-110 CREATININE (test code = 7531107399) 0.53 mg/dL 0.50-1.04 CALCIUM (test code = 8814733633) 9.5 mg/dL 8.6-10.6 eGFR (test code = 5513322650) mL/min/1.73m2 ASUNCION (test code = ASUNCION) Association of [...] or urine or abnormalities in imaging tests). [facility]-21 21:16:11* Test Item Value Reference Range Interpretation Comme nts ABO & RH (test code = 20) O Positive Performed at [facility] Laboratory [facility] Blood [address] [place] [address] Free: [phone] No. [id number] IAT (test code = 1185) Negative Performed at [facility] Blood [address] Free: [phone] No. [id number] [facility] WITH [id number] 20:52:43* Test Item Value Reference Range Interpretation Comme nts WBC (test code = 6690-2) See_Comment H [Automated messa ge] The system which generated this result transmitted reference range: 4.30 - 11.10 10*3/?L. The reference range was not used to interpret this result as normal/abnormal. RBC (test code = 789-8) See_Comment [Automated messa ge] The system which generated this result transmitted reference range: 3.93 - 5.25 10*6/?L. The reference range was not used to interpret this result as normal/abnormal. HGB (test code = 718-7) 14.5 g/dL 11.6-15.0 HCT (test code = 4544-3) 43.7 % 35.7-45.2 MCV (test code = 787-2) 94.0 fL 80.6-95.5 MCH (test code = 785-6) 31.2 pg 25.9-32.8 MCHC (test code = 786-4) 33.2 g/dL 31.6-35.1 RDW-SD (test code = 04186-4) 47.4 fL 39.0-49.9 RDW-CV (test code = 788-0) 13.7 % 12.0-15.5 PLT (test code = 777-3) See_Comment H [Automated messa ge] The system which generated this result transmitted reference range: 166 - 358 10*3/?L. The reference range was not used to interpret this result as normal/abnormal. MPV (test code = 13444-5) 10.9 fL 9.5-12.9 NRBC/100 WBC (test code = 4908199431) See_Comment [Automated me ssage] The system which generated this result transmitted reference range: 0.0 - 10.0 /100 WBCs. The reference range was not used to interpret this result as normal/abnormal. NRBC x10^3 (test code = 7342450774) <0.01 See_Comment [Automated messa ge] The system which generated this result transmitted reference range: 10*3/?L. The reference range was not used to interpret this result as normal/abnormal. GRAN MAT (NEUT) % (test code = 770-8) 72.1 % IMM GRAN % (test code = 4222931851) 0.40 % LYMPH % (test code = 736-9) 20.6 % MONO % (test code = 5905-5) 5.8 % EOS % (test code = 713-8) 0.7 % BASO % (test code = 706-2) 0.4 % GRAN MAT x10^3(ANC) (test code = 7333308736) 8.05 10*3/uL 1.88-7.09 H IMM GRAN x10^3 (test code = 0458597259) 0.05 10*3/uL 0.00-0.06 LYMPH x10^3 (test code = 731-0) 2.30 10*3/uL 1.32-3.29 MONO x10^3 (test code = 742-7) 0.65 10*3/uL 0.33-0.92 EOS x10^3 (test code = 711-2) 0.08 10*3/uL 0.03-0.39 BASO x10^3 (test code = 704-7) 0.04 10*3/uL 0.01-0.07 Lab Interpretation (test code = 40085-7) Abnormal [facility]A1C)2021-11-21 20:34:08* Test Item Value Reference Range Interpretation Comme nts HGB A1C (test code = 4548-4) 5.2 % 4.0-5.7 ASUNCION (test code = ASUNCION) Reference RangesNormal: <5.7%Prediabetes: 5.7 - 6.4%Diabetes: > 6.5% Lab Interpretation (test code = 86553-5) Normal [facility]"
[2024-05-22] MEDS ORDERED: TDAP (DIPHTH,PERTUSS(ACELL),TET VAC) 0.5 ML VIAL IMVAC ONE (22:20)
--- NOTE | 2024-05-22 22:34 | RAD REPORT ---
EXAM DESCRIPTION: RAD - Foot Left 3 View - 05/22/2024 10:22 pm CLINICAL HISTORY: foot injury COMPARISON: <Comparisons> FINDINGS: Soft tissue swelling is present affecting the great toe. No acute fracture seen.
--- NOTE | 2024-05-22 22:36 | ER ---
Nurse's Notes [facility] Name: Wilton Kapadia Age: 24 yrs Sex: Female : 2000 Arrival Date: 05/22/2024 Time: 21:33 Bed 14 Private MD: Diagnosis: Abrasion of lower leg;Contusion of foot Presentation: 05/22 21:55 Chief complaint: Patient states: trundle bed fell on left great toe small wound noted kl no active bleeding. Coronavirus screen: Vaccine status: Patient reports receiving the 2nd dose of the covid vaccine. Ebola Screen: Patient negative for fever greater than or equal to 101.5 degrees Fahrenheit, and additional compatible Ebola Virus Disease symptoms. Initial Sepsis Screen: Does the patient meet any 2 criteria? No. Patient's initial sepsis screen is negative. Does the patient have a suspected source of infection? No. Patient's initial sepsis screen is negative. Risk Assessment: Do you want to hurt yourself or someone else? Patient reports no desire to harm self or others. 21:55 Method Of Arrival: Wheelchair 21:55 Acuity: ARMANI 4 kl 22:42 Onset of symptoms was May 22, 2024. al5 Triage Assessment: 21:57 General: Appears uncomfortable, Behavior is cooperative. Pain: Complains of pain in kl left first toe Pain currently is 9 out of 10 on a pain scale. Musculoskeletal: Reports pain in left foot. Injury Description: Avulsion sustained to plantar aspect of left first toe is partial. 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 - Infectious Disease History:: Denies. - Social history:: Smoking status: Patient denies any tobacco usage or history of. Screenin:40 [facility] ED Fall Risk Assessment (Adult) History of falling in the last 3 months, al5 including since admission No falls in past 3 months (0 pts) Confusion or Disorientation No (0 pts) Intoxicated or Sedated No (0 pts) Impaired Gait No (0 pts) Mobility Assist Device Used No (0 pt) Altered Elimination No (0 pt) Score/Fall Risk Level 0 - 2 = Low Risk Oriented to surroundings, Maintained a safe environment, Hourly rounding (assess needs \T\ fall precautionary measures) done. Abuse screen: Denies threats or abuse. Denies injuries from another. Nutritional screening: No deficits noted. Tuberculosis screening: No symptoms or risk factors identified. Assessment: 22:41 General: Appears in no apparent distress. Behavior is calm, cooperative. Pain: al5 Complains of pain in left first toe. Neuro: Level of Consciousness is awake, alert, obeys commands, Oriented to person, place, time, situation. Cardiovascular: Patient's skin is warm and dry. Respiratory: Airway is patent Respiratory effort is even, unlabored, Respiratory pattern is regular, symmetrical. GI: No signs and/or symptoms were reported involving the gastrointestinal system. : No signs and/or symptoms were reported regarding the genitourinary system. EENT: No signs and/or symptoms were reported regarding the EENT system. Derm: wound to L toe, no active bleeding. Musculoskeletal: No signs and/or symptoms reported regarding the musculoskeletal system. Vital Signs: 21:55 BP 119 / 78; Pulse 88; Resp 18; Temp 97.6(TE); Pulse Ox 97% on R/A; Weight 108.86 kg kl (R); Height 5 ft. 0 in. ; Pain 9/10; 22:00 BP 96 / 61; Pulse 79; Resp 18; Pulse Ox 98% on R/A; al5 22:30 BP 103 / 55; Pulse 71; Resp 18; Pulse Ox 100% on R/A; al5 21:55 Body Mass Index 46.87 (108.86 kg, 152.4 cm) kl 21:55 Pain Scale: Adult kl ED Course: 21:36 Patient arrived in ED. gm2 21:39 Rohan Patton MD is Attending Physician. ec2 21:41 Radha Stern is Primary Nurse. cp4 21:57 Triage completed. kl 22:24 Foot Left 3 View XRAY In Process Unspecified. EDMS 22:40 Patient has correct armband on for positive identification. Bed in low position. Call al5 light in reach. Side rails up X 1. Provided Education on: medication administration. 22:41 No provider procedures requiring assistance completed. Patient did not have IV access al5 during this emergency room visit. 22:42 Arm band placed on right wrist. Patient placed in an exam room, on a stretcher. al5 Administered Medications: 22:33 Drug: Boostrix Tdap IM 0.5 ml IM once; as a single dose Route: IM; Site: left deltoid; al5 22:42 Follow up: Response: (VIS) Vaccine information sheet provided today. Questions and/or al5 concerns addressed. VIS edition date: May 20, 2021.; No adverse reaction 22:45 Drug: Ketorolac IM 30 mg IM once Route: IM; Site: left deltoid; al5 23:03 Follow up: Response: No adverse reaction al5 Medication: 22:40 Vaccine Information Statement (VIS) provided today. Questions and/or concerns al5 addressed. VIS edition date: May 20, 2021. Outcome: 22:35 Discharge ordered by . ec2 23:03 Discharged to home ambulatory, with family, al5 23:03 Condition: good 23:03 Discharge instructions given to patient, Instructed on discharge instructions, follow up and referral plans. medication usage, Demonstrated understanding of instructions, follow-up care, medications, Prescriptions given X 2, 23:03 Patient left the ED. al5 Signatures: Dispatcher [employer] Harriet Gutierrez RN RN Rohan Collins MD MD ec2 Radha Stern 4 Bernice Hastings 2 Luz Marina Abdi RN RN al5 Corrections: (The following items were deleted from the chart) 22:48 22:28 In radiology for Foot Left 3 View+RAD.RAD.BRZ. KUMAR HEATH
--- NOTE | 2024-05-22 22:36 | EDPHYS ---
Physician Documentation [facility] Name: Wilton Kapadia Age: 24 yrs Sex: Female : 2000 Arrival Date: 05/22/2024 Time: 21:33 Bed 14 Private MD: ED Physician Rohan Patton HPI: 05/22 22:29 This 24 yrs old Female presents to ER via Wheelchair with complaints of Foot ec2 Injury. 22:29 Patient arrives today for evaluation of a left foot injury. States that she dropped a ec2 heavy object on the top of the left foot. Also sustained an abrasion to the medial aspect of the first metatarsal. No other injuries, no other concerns . 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 - Infectious Disease History:: Denies. - Social history:: Smoking status: Patient denies any tobacco usage or history of. ROS: 22:29 Constitutional: as per hpi ec2 Exam: 22:29 Constitutional: GEN: NAD Head: atraumatic Eyes: EOMI Ears: External ears are ec2 normal. CV: regular rate LUNGS: no respiratory distress ABD: non-distended SKIN: Abrasion to the left first metatarsal. MSK: General TTP throughout the metatarsals on the left foot. No obvious deformities, intact distal neurovascular status. NEURO: moves all extremities equally Vital Signs: 21:55 BP 119 / 78; Pulse 88; Resp 18; Temp 97.6(TE); Pulse Ox 97% on R/A; Weight 108.86 kg kl (R); Height 5 ft. 0 in. ; Pain 9/10; 22:00 BP 96 / 61; Pulse 79; Resp 18; Pulse Ox 98% on R/A; al5 22:30 BP 103 / 55; Pulse 71; Resp 18; Pulse Ox 100% on R/A; al5 21:55 Body Mass Index 46.87 (108.86 kg, 152.4 cm) kl 21:55 Pain Scale: Adult kl MDM: 21:40 Patient medically screened. ec2 22:29 Data reviewed: vital signs. ED course: Patient arrives today for evaluation of a left ec2 foot injury. Examination remarkable for MSK findings as above. Will update patient's tetanus status, obtain radiograph as well. Differential clued bony contusion, bony fracture, abrasion.. 22:34 ED course: Foot x-ray independently reviewed and interpreted by me, shows no bony ec2 fracture. Will discharge home. Return precautions given.. 05/22 22:01 Order name: Foot Left 3 View XRAY; Complete Time: 22:35 ec2 05/22 22:35 Order name: Arnold Wrap; Complete Time: 22:55 ec2 Administered Medications: 22:33 Drug: Boostrix Tdap IM 0.5 ml IM once; as a single dose Route: IM; Site: left deltoid; al5 22:42 Follow up: Response: (VIS) Vaccine information sheet provided today. Questions and/or al5 concerns addressed. VIS edition date: May 20, 2021.; No adverse reaction 22:45 Drug: Ketorolac IM 30 mg IM once Route: IM; Site: left deltoid; al5 23:03 Follow up: Response: No adverse reaction al5 Disposition Summary: 05/22/24 22:35 Discharge Ordered Notes: Location: Home ec2 Condition: Stable ec2 Diagnosis - Abrasion of lower leg ec2 - Contusion of foot ec2 Followup: ec2 - With: Private Physician - When: - Reason: Re-evaluation by your physician Discharge Instructions: - Discharge Summary Sheet ec2 - Foot Contusion, [id number] ec2 Forms: - Medication Reconciliation Form ec2 - Antibiotic Education ec2 - Prescription Opioid Use ec2 - Patient Portal Instructions ec2 - Leadership Thank You Letter ec2 Prescriptions: - methocarbamol 500 mg Oral tablet - take 2 tablets ORAL route 4 times per day; 20 tablet; Refills: 0, Product ec2 Selection Permitted Signatures: Dispatcher [employer] EDHarriet Frost RN RN kl Corral, Edwin, MD MD ec2 Luz Marina Abdi RN RN al5 Corrections: (The following items were deleted from the chart) 22:02 22:01 Foot Left 3 View+RAD.RAD.BRZ ordered. EDMS EDMS 22:48 22:10 Foot Left 3 View+RAD.RAD.BRZ ordered. EDMS EDMS
[2024-05-22] MEDS ORDERED: KETOROLAC 30 MG/ML INJ ONE (22:44)
[2024-05-22 23:15] VITALS: TEMP 97.6
[2024-05-22 23:17] VITALS: BP 103/55; O2SAT 100
== END 2024-05-22 23:03 | disposition home or self-care (01) ==
LOC: ER 21:33
DX: S90.812A Abrasion, left foot, initial encounter (principal)
CPT/HCPCS: 96372; 99284

== ENCOUNTER 2024-07-21 17:13 | Emergency (ER) | payer SELFPAY ==
--- OUTSIDE RECORDS SUMMARY | 2024-07-21 17:16 | XMS REPORT | Continuity of Care Document ---
Author Name Unknown Address [address] [facility] [address] [place] [address] [facility] Address [address] [facility] [address] [place] [address] Care Team Providers Care Bottle Capper Name Role Phone Pcp, Patient Does Not Have A Primary Care Physic mary Abigail Platt Attending Clinician Unavailable LAQUITA COLEMAN Attending Clinician Unavailable LOVE BRUNNER Attending Clinician LOVE Siu Attending Clinician Nino butt Doctor Unassigned, [place] Attending Clinician U navailable 2, Adc Lab Attending Clinician Unavailable Laquita Coleman MD Attending Clinician [phone] LORENA VALDOVINOS Attending Clinician Unavailable Only, Adc Test Attending Clinician Unavailable Lorena Valdovinos PA-C Attending Clinician [phone] LAQUITA COLEMAN Admitting Clinician Unavailable Laquita Coleman MD Admitting Clinician [phone] Payers Payer Name Policy Type Policy Number Effective Date Expirati on Date Source FORMERLY [facility] [id number] 2015 00:00:00 Problems Condition Name Condition Details Condition Category Status Onset Date Resolution Date Last Treatment Date Treating Clinician Comments Source Encounter for IUD removal Encounter for IUD removal Disease Active 11-22 00:00: 00 [facility] Status post hysterosco py Status post hysterosco py Disease Active - 00:00: 00 [facility] Intrauteri ne contracept crystal device threads lost, initial encounter Intrauteri ne contracept crystal device threads lost, initial encounter Disease Active 2020-10 00:00: 00 [facility] Morbid obesity with body mass index of 40.0-49.9 Morbid obesity with body mass index of 40.0-49.9 Disease Active 8 00:00: 00 [facility] Iron deficiency anemia due to chronic blood loss Iron deficiency anemia due to chronic blood loss Problem Active [facility] Nexplanon in place Nexplanon in place Problem Active [facility] Menorrhagi a with regular cycle Menorrhagi a with regular cycle Problem Active [facility] Intermenst rual bleeding Intermenst rual bleeding Problem Active [facility] Possible urinary tract infection Possible urinary tract infection Diagnosis Active [facility] Allergies, Adverse Reactions, Alerts Allergy Name Allergy Type Status Severity Reaction(s) Onset Date Inactive Date Treating Clinician Comments Source NO KNOWN ALLERGIE S Drug Class Active [facility] Social History Social Habit Start Date Stop Date Quantity Comments Source [facility] Exposure to SARS-CoV-2 (event) 2022-10-16 00:00:00 2022-10-26 08:11:00 Not sure [facility] Tobacco use and exposure 2022-10-26 00:00:00 2022-10-26 00:00:00 Smokeless tobacco non-user [facility] Alcohol intake 2022-10-26 00:00:00 2022-10-26 00:00:00 Current non-drinker of alcohol (finding) [facility] History of Social function 2021-11-22 00:00:00 2021-11-22 00:00:00 [facility] Sex Assigned At 2002 00:00:00 2000 00:00:00 [facility] Smoking Status Start Date Stop Date Source Never smoked tobacco [facility] Medications Ordered Medication Name Filled Medication Name Start Date Stop Date Current Medication? Ordering Clinician Indication Dosage Frequency Signature (SIG) Comments Components Source escitalopra m oxalate 10 mg tablet 10-26 08:47: 15 Yes 10mg Take 10 mg by mouth in the morning. [facility] NUVARING 0.12-0.015 mg/24 hr vaginal insert 10-26 00:00: 00 Yes [id number] 1{each} Insert 1 Each into vagina once every month. Insert vaginally and leave in place for 3 consecutiv e weeks, then remove for 1 week. [facility] ondansetron (ZOFRAN (PF)) injection 4 mg 11-22 15:06: 31 Yes 4mg 4 mg, Slow IV Push, PRN, 1 dose, Starting on Sun11/22/21 at 0906, Until Discontinu ed, Routine, Nausea and Vomiting (N/V), PACU [facility] FENTanyl PF (SUBLIMAZE (PF)) injection 25 mcg 11-22 15:06: 31 11-22 18:26 :17 No 25ug 25 mcg, Slow IV Push, Q5MIN PRN, 4 doses, Starting on Sun11/22/21 at 0906, Until Sun11/22/21 at 1226, Routine, Pain (scale 7-10), PACU [facility] sodium chloride 0.9 % irrigation solution 11-22 14:18: 00 Yes PRN, Starting on Sun11/22/21 at 0818, Until Discontinu ed, Intra-op [facility] ferric subsulfate (MONSEL'S SOLUTION) solution 11-22 14:16: 00 Yes PRN, Starting on Sun11/22/21 at 0816, Until Discontinu ed, Routine, Intra-op [facility] lactated ringers IV infusion 1,000 mL 11-22 12:30: 00 11-22 12:49 :00 No 1000mL at 42 mL/hr, 1,000 mL, IV Infusion, ONCE, 1 dose, On Sun11/22/21 at 0630, Routine, [facility]SU Pre-op [facility] acetaminoph en (TYLENOL) 325 mg tablet 11-22 00:00: 00 10-26 00:00 :00 No [id number] 650mg Take 2 tablets by mouth every 6 (six) hours as needed for Pain (scale 1-3) or Pain (scale 4-6). [facility] ibuprofen 600 mg tablet 11-22 00:00: 00 10-26 00:00 :00 No [id number] 600mg Take 1 tablet by mouth every 6 (six) hours as needed for Pain (scale 1-3) or Pain (scale 4-6). [facility] No known medications 11-18 10:02: 30 No [facility] Mirena Mirena Yes Morgan Perez not defined [facility] iron iron Yes Morgan Gri [address] [facility] Vital Signs Vital Name Observation Time Observation Value Comments S ource Systolic blood pressure 2022-10-26 14:41:00 101 mm[Hg] [facility] Diastolic blood pressure 2022-10-26 14:41:00 64 mm[Hg] [facility] Heart rate 2022-10-26 14:41:00 71 /min [facility] Body temperature 2022-10-26 14:41:00 36.5 Solange [facility] Body weight 2022-10-26 14:41:00 95.618 kg [facility] Systolic blood pressure 2021-11-22 15:40:00 103 mm[Hg] [facility] Diastolic blood pressure 2021-11-22 15:40:00 61 mm[Hg] [facility] Heart rate 2021-11-22 15:40:00 83 /min [facility] Oxygen saturation in Arterial blood by Pulse oximetry 2021-11-22 15:40:00 95 /min [facility] Respiratory rate 2021-11-22 15:35:00 17 /min [facility] Body temperature 2021-11-22 14:47:00 36.33 Solange [facility] Body height 2021-11-10 16:58:00 152.4 cm [facility] Body weight 2021-11-10 16:58:00 102.1 kg [facility] BMI 2021-11-10 16:58:00 43.96 kg/m2 [facility] Body mass index (BMI) [Percentile] Per age and sex 2021-11-10 16:58:00 98.89 % [facility] Systolic blood pressure 2021-11-22 15:15:00 117 mm[Hg] [facility] Diastolic blood pressure 2021-11-22 15:15:00 64 mm[Hg] [facility] Heart rate 2021-11-22 15:15:00 78 /min [facility] Respiratory rate 2021-11-22 15:15:00 15 /min [facility] Oxygen saturation in Arterial blood by Pulse oximetry 2021-11-22 15:15:00 95 /min [facility] Body temperature 2021-11-22 14:47:00 36.33 Solange [facility] Body height 2021-11-10 16:58:00 152.4 cm [facility] Body weight 2021-11-10 16:58:00 102.1 kg [facility] BMI 2021-11-10 16:58:00 43.96 kg/m2 [facility] Body mass index (BMI) [Percentile] Per age and sex 2021-11-10 16:58:00 98.89 % [facility] Procedures Procedure Date / Time Performed Performing Clinician Source CONSENT/REFUSAL FOR DIAGNOSIS AND TREATMENT 2022-10-26 14:12:33 Doctor Unassigned, [place] [facility] ASSIGNMENT OF BENEFITS 2022-10-26 14:12:15 Docto r Unassigned, [place] [facility] POCT TEST 2022-10-26 00:00:00 Laquita Coleman [facility] HYSTEROSCOPY 2021-11-22 13:34:00 Laquita Coleman [facility] INTRAUTERINE DEVICE REMOVAL 2021-11-22 13:34:00 Laquita Coleman [facility] ABORH CONFIRMATION (LAB ONLY) 2021-11-22 12:43:00 [facility] ONLY[facility] 2021-11-22 12:43:00 [facility] 2021-11-22 12:32:00 Shukri Rivera [facility] POCT TEST 2021-11-22 12:32:00 Shukri Rivera [facility] COVID-19 (ID NOW RAPID TESTING) 2021-11-21 20:18:00 [facility]IC METABOLIC PANEL (NA, K, CL, CO2, GLUCOSE, BUN, CREATININE, CA) 2021-11-21 20:10:00 [facility] CBC WITH DIFF 2021-11-21 20:10:00 Laquita Coleman [facility] GLYCOSYLATED HEMOGLOBIN (A1C) 2021-11-21 20:10:00 [facility] HB ABO GROUPING 2021-11-21 20:10:00 Laquita Coleman [facility] TOTAL BETA HCG ASSAY 2021-11-21 20:10:00 [facility] DSU PRE-OP 2021-10-27 06:01:00 Doctor Unass igned, [place] [facility] DSU PRE-OP 2021-10-27 06:01:00 Doctor Unass igned, [place] [facility] Encounters Start Date/Time End Date/Time Encounter Type Admission Type Attending [facility] Care Facility Care Department Encounter ID Source 2022-09-12 15:44:00 Out[facility] [id number] [facility] 2022-07-11 09:37:00 Outpatient Abigail Platt [facility] [id number] [facility] 2022-06-08 07:56:00 Outpatient Abigail Platt [facility] [id number] [facility] 2022-04-27 17:37:00 Outpatient Abigail Platt [facility] [id number] [facility] 2022-02-10 13:16:00 [facility] [id number] [facility] 2022-01-23 14:04:00 Out[facility] [id number] [facility] 2021-11-09 17:14:16 Outpatient R LAQUITA COLEMAN [facility] SOFTWARE VERIFICATION ENGINEER [id number] [facility] 2023-02-13 13:30:00 2023-02-13 13:30:00 Outpatient R HERNANDEZ-TRAVON S, LOVE HERNANDEZ-TRAVON S, LOVE [facility] [id number] [facility] 2023-01-25 08:00:00 2023-01-25 08:00:00 Outpatient LAQUITA MEHTA [facility] [id number] [facility] 2022-11-02 00:00:00 2022-11-02 00:00:00 Patient Secure Msg Doctor Unassigned, [place] [facility] 1.840.114 350.1.13.10 4.2.7.2.686 [id number] 134 [id number] [facility] 2022-10-26 09:45:00 2022-10-26 10:00:00 Tool Checker Visit 2, Adc Lab Laquita Coleman [facility] 1..840.114 350.1.13.10 4.2.7.2.686 [id number] [facility] 2022-10-26 08:30:00 2022-10-26 09:29:18 Outpatient R LAQUITA COLEMAN [facility] [id number] [facility] 2022-10-26 08:30:00 2022-10-26 09:29:18 Office Visit Laquita Coleman [facility] 1..840.114 350.1.13.10 4.2.7.2.686 [id number] [facility] 2022-10-26 00:00:00 2022-10-26 00:00:00 Orders Only Doctor Unassigned, [place] [facility] 1..840.114 350.1.13.10 4.2.7.2.686 [id number] [facility] 2022-06-20 10:45:00 2022-06-20 10:45:00 Outpatient LORENA ASHRAF [facility] [id number] [facility] 2022-06-05 08:30:00 2022-06-05 08:30:00 Outpatient LAQUITA MEHTA [facility] [id number] [facility] 2022-04-12 00:00:00 2022-04-12 00:00:00 Telephone Laquita Coleman [facility]ESS[facility] 1..840.114 350.1.13.10 4.2.7.2.686 [id number] [facility] 2021-12-28 13:30:00 2021-12-28 13:30:00 Outpatient R LAQUITA COLEMAN [facility] [id number] [facility] 2021-12-19 08:00:00 2021-12-19 08:00:00 Outpatient R LAQUITA COLEMAN [facility] [id number] [facility] 2021-11-22 06:17:00 2021-11-22 10:10:00 Outpatient R LAQUITA COLEMAN [facility] SOFTWARE VERIFICATION ENGINEER [id number] [facility] 2021-11-22 06:17:00 2021-11-22 10:10:00 Hospital Encounter Laquita Coleman [facility] 1..840.114 350.1.13.10 4.2.7.2.686 [id number] [facility] 2021-11-22 07:59:00 2021-11-22 09:15:00 Surgery Coleman, Laquita [facility] 1.2.840.114 350.1.13.10 4.2.7.2.686 [id number] [facility] 2021-11-21 09:15:00 2021-11-21 09:30:00 Laboratory Only Only, Adc Test Laquita Coleman [facility] 1.2.840.114 350.1.13.10 4.2.7.2.686 [id number] [facility] 2021-11-21 09:15:00 2021-11-21 09:15:00 Outpatient R LAQUITA COLEMAN [facility] [id number] [facility] 2021-11-21 00:00:00 2021-11-21 00:00:00 Orders Only Doctor Unassigned, [place] [facility] 1.2.840.114 350.1.13.10 4.2.7.2.686 [id number] [facility] 2021-10-28 00:00:00 2021-10-28 00:00:00 Prep For [facility] 1.2.840.114 350.1.13.10 4.2.7.2.686 [id number] [facility] 2021-10-27 13:00:00 2021-10-27 13:41:27 [facility] 1.2.840.114 350.1.13.10 4.2.7.2.686 [id number] [facility] 2021-10-27 13:00:00 2021-10-27 13:41:27 Outpatient R LAQUITA COLEMAN [facility] [id number] [facility] 2021-10-27 13:00:00 2021-10-27 13:00:00 [id number] 2021-10-06 09:30:00 2021-10-06 10:02:57 Office Visit Laquita Coelman [facility] 1.2.840.114 350.1.13.10 4.2.7.2.686 [id number] [facility] 2021-10-06 09:30:00 2021-10-06 10:02:57 Outpatient R LAQUITA COLEMAN [facility] [id number] [facility] 2021-09-22 13:30:00 2021-09-22 13:30:00 Outpatient R LAQUITA COLEMAN [facility] [id number] [facility] 2021-09-21 00:00:00 2021-09-21 00:00:00 Telephone Laquita Coleman [facility] 1.2.840.114 350.1.13.10 4.2.7.2.686 [id number] [facility] 2021-09-16 10:47:44 2021-09-16 23:59:00 Outpatient R LAQUITA COLEMAN [facility] [id number] [facility] 2021-09-16 10:47:44 2021-09-16 23:59:00 Hospital Encounter Laquita Coleman [facility] 1.2.840.114 350.1.13.10 4.2.7.2.686 [id number] [facility] 2021-09-12 10:30:00 2021-09-12 11:19:04 Outpatient R LAQUITA COLEMAN [facility] [id number] [facility] 2021-09-12 10:01:44 2021-09-12 11:19:04 Office Visit Laquita Coleman [facility] 1.2.840.114 350.1.13.10 4.2.7.2.686 [id number] [facility] 2021-09-12 00:00:00 2021-09-12 00:00:00 Orders Only Doctor Unassigned, [place] [facility] 1.2.840.114 350.1.13.10 4.2.7.2.686 [id number] [facility] 2020-06-08 00:00:00 2020-06-08 00:00:00 Telephone Lorena Valdovinos [facility] 1.2.840.114 350.1.13.10 4.2.7.2.686 [id number] 2020-06-08 00:00:00 2020-06-08 00:00:00 Telephone Lorena Valdovinos [facility] 1.2.840.114 350.1.13.10 4.2.7.2.686 [id number] [facility] 2020-06-03 12:05:34 2020-06-03 23:59:00 Hospital Encounter Lorena Valdovinos [facility] 1.2.840.114 350.1.13.10 4.2.7.2.686 [id number] 2020-06-03 12:05:34 2020-06-03 23:59:00 Hospital Encounter Lorena Valdovinos [facility] 1.2.840.114 350.1.13.10 4.2.7.2.686 [id number] [facility] 2020-06-03 00:00:00 2020-06-03 00:00:00 Outpatient R LORENA VALDOVINOS [facility] [id number] [facility] 2020-05-28 10:40:11 2020-05-28 11:21:10 Office Visit Lorena Valdovinos [facility] 1.2.840.114 350.1.13.10 4.2.7.2.686 [id number] 2020-05-28 10:40:11 2020-05-28 11:21:10 Office Visit Lorena Valdovinos [facility] 1.2.840.114 350.1.13.10 4.2.7.2.686 [id number] [facility] 2020-05-28 10:30:00 2020-05-28 10:30:00 Outpatient R LORENA VALDOVINOS [facility] [id number] [facility] 2020-05-28 00:00:00 2020-05-28 00:00:00 Orders Only Doctor Unassigned, [place] [facility] 1.2.840.114 350.1.13.10 4.2.7.2.686 [id number] [facility] 2019-07-25 13:30:00 2019-07-25 13:30:00 [facility] [id number] [facility] 2019-04-09 14:30:00 2019-04-09 14:30:00 Outpatient [facility] [id number] [facility] Results Test Description Test Time Test Comments Results Result Co mments Source [facility] [id number] 16:02:00* Test Item Value Reference Range Interpretation Comme nts POCT PREG (test code = 1605) Negative On board controls acceptable with C Line (test code = 3574) Yes POCT PREG LOT # (test code = 3575) POCT PREG TEST DATE ( test code = 3576) [facility] Conf[facility] (Lab Only)2021-11-22 13:50:31* Test Item Value Reference Range Interpretation Comme nts ABO & RH (test code = 20) O Positive Performed at [facility] B Laboratory Services - [facility] Blood [address] [place] [id number] Free: [phone] No. [id number] [facility] Confirmation (Lab Only)2021-11-22 13:50:31* Test Item Value Reference Range Interpretation Comme nts ABO & RH (test code = 20) O Positive Performed at [facility] B Laboratory Services - [facility] Blood [address] [place] [address]Whwv Free: [phone] No. [id number] [facility] [id number] 12:33:00* Test Item Value Reference Range Interpretation Comme nts POCT PREG (test code = 1605) Negative On board controls acceptable with C Line (test code = 3574) Yes POCT PREG LOT # (test code = 3575) [id number] POCT PREG TEST DATE ( test code = 3576) [facility] [id number] 12:33:00* Test Item Value Reference Range Interpretation Comme nts POCT PREG (test code = 1605) Negative On board controls acceptable with C Line (test code = 3574) Yes POCT PREG LOT # (test code = 3575) [id number] POCT PREG TEST DATE ( test code = 3576) [facility] BETA HCG [id number] 22:03:20* Test Item Value Reference Range Interpretation Comme nts BETA HCG (test code = 9516435203) <2.39 See_Comment [Automated Synthoxa ge] The system which generated this result transmitted reference range: Non- female and male patients: <5 mIU/mL. The reference range was not used to interpret this result as normal/abnormal. ASUNCION (test code = ASUNCION) Gestational Age ?Range (mIU/mL) 1-10 ?Weeks ?64-10069990-15 Weeks ?13537-27538251-36 Weeks ?9405-46464655-78 Weeks ?0332-116033 Biotin has been reported to cause a negative bias, interpret results relative to patient's use of biotin. [facility] METABOLIC PANEL (NA, K, CL, CO2, GLUCOSE, BUN, CREATININE, CA)2021-11-21 21:22:47* Test Item Value Reference Range Interpretation Comme nts NA (test code = 6095927196) 139 mmol/L 135-145 K (test code = 9700640418) 4.6 mmol/L 3.5-5.0 CL (test code = 4083797458) 102 mmol/L 98-108 CO2 TOTAL (test code = 8862090122) 28 mmol/L 23-31 AGAP (test code = 1149972595) 2-16 BUN (test code = 0378778978) 10 mg/dL 7-23 GLUCOSE (test code = 6034991389) 93 mg/dL 70-110 CREATININE (test code = 3424292316) 0.53 mg/dL 0.50-1.04 CALCIUM (test code = 6246304597) 9.5 mg/dL 8.6-10.6 eGFR (test code = 5548934404) mL/min/1.73m2 ASUNCION (test code = ASUNCION) Association [...] or urine or abnormalities in imaging tests). [facility] -2021-11-21 21:16:11* Test Item Value Reference Range Interpretation Comme nts ABO & RH (test code = 20) O Positive Performed at [facility] Laboratory [facility] Blood [address] [place] [address] Free: [phone] No. [id number] IAT (test code = 1185) Negative Performed at [facility] Blood [address] Free: [phone] No. [id number] [facility] WITH [id number] 20:52:43* Test Item Value Reference Range Interpretation [...] 33.2 g/dL 31.6-35.1 RDW-SD (test code = 47171-1) 47.4 fL 39.0-49.9 RDW-CV (test code = 788-0) 13.7 % 12.0-15.5 PLT (test code = 777-3) See_Comment H [Automated messa ge] The system which generated this result transmitted reference range: 166 - 358 10*3/?L. The reference range was not used to interpret this result as normal/abnormal. MPV (test code = 66290-0) 10.9 fL 9.5-12.9 NRBC/100 WBC (test code = 2403477170) See_Comment [Automated me ssage] The system which generated this result transmitted reference range: 0.0 - 10.0 /100 WBCs. The reference range was not used to interpret this result as normal/abnormal. NRBC x10^3 (test code = 9502581010) <0.01 See_Comment [Automated messa ge] The system which generated this result transmitted reference range: 10*3/?L. The reference range was not used to interpret this result as normal/abnormal. GRAN MAT (NEUT) % (test code = 770-8) 72.1 % IMM GRAN % (test code = 4658503563) 0.40 % LYMPH % (test code = 736-9) 20.6 % MONO % (test code = 5905-5) 5.8 % EOS % (test code = 713-8) 0.7 % BASO % (test code = 706-2) 0.4 % GRAN MAT x10^3(ANC) (test code = 9015331904) 8.05 10*3/uL 1.88-7.09 H IMM GRAN x10^3 (test code = 5301090928) 0.05 10*3/uL 0.00-0.06 LYMPH x10^3 (test code = 731-0) 2.30 10*3/uL 1.32-3.29 MONO x10^3 (test code = 742-7) 0.65 10*3/uL 0.33-0.92 EOS x10^3 (test code = 711-2) 0.08 10*3/uL 0.03-0.39 BASO x10^3 (test code = 704-7) 0.04 10*3/uL 0.01-0.07 Lab Interpretation (test code = 71391-4) Abnormal [facility] (A1C)2021-11-21 20:34:08* Test Item Value Reference Range Interpretation Comme nts HGB A1C (test code = 4548-4) 5.2 % 4.0-5.7 ASUNCION (test code = ASUNCION) Reference RangesNormal: <5.7%Prediabetes: 5.7 - 6.4%Diabetes: > 6.5% Lab Interpretation (test code = 19359-2) Normal [facility]"
--- NOTE | 2024-07-21 18:23 | RAD REPORT ---
Abdomen Exam Limited: 07/21/2024 5:51 PM CLINICAL HISTORY: ABD PAIN STUDY: Limited right upper quadrant ultrasound of abdomen. COMPARISON: None. FINDINGS: Liver: Question hepatic steatosis. Bile ducts: No intrahepatic or extrahepatic biliary dilatation. Common bile duct measures 3 mm. Gallbladder: Normal. Specifically, no stones, gallbladder wall thickening, or pericholecystic fluid. No sonographic Amaya sign. IMPRESSION: Negative for cholelithiasis or acute cholecystitis. No biliary duct dilatation.
[2024-07-21 18:26] LABS: Specific Gravity 1.028 (1.005-1.030)
--- NOTE | 2024-07-21 18:26 | RAD REPORT ---
EXAM: Chest Pa And Lat (2 Views) HISTORY: CHEST PAIN COMPARISON: 09/11/2023 FINDINGS: LUNGS/PLEURA: The lungs are clear. No pleural effusions or pneumothorax. No pulmonary edema. MEDIASTINUM: The mediastinal silhouette is within normal limits. CARDIAC: The cardiac silhouette is within normal limits. UPPER ABDOMEN: No significant abnormality. BONES: No acute fracture. LINES/TUBES/OTHER: N/A IMPRESSION: No evidence of acute cardiopulmonary disease
[2024-07-21 18:28] LABS: Specific Gravity 1.028 (1.005-1.030); Urine Bacteria <20 /HPF (<20); Urine Bilirubin NEGATIVE (Negative); Urine Blood Negative (Negative); Urine Clarity Extremely Turbid (Clear); Urine Color Yellow (Yellow); Urine Culture Reflex Order NOT NEEDED; Urine Glucose NEGATIVE (Negative); Urine Ketones NEGATIVE (Negative); Urine Microscopic Reflex YN ORDER UMIC; Urine Mucus 3+ /HPF (None Seen); Urine Nitrite NEGATIVE (Negative); Urine Protein TRACE (Negative); Urine Urobilinogen Normal (Normal); Urine WBC <5 /HPF (<5)
[2024-07-21 18:38] LABS: SARS-CoV-2 Antigen CONTROL BLUE LINE VIS/BG OK; SARS-CoV-2 Antigen Rapid Res Negative (Negative)
--- NOTE | 2024-07-21 18:55 | EDPHYS ---
Physician Documentation [facility] Name: Wilton Kapadia Age: 24 yrs Sex: Female : 2000 Arrival Date: 07/21/2024 Time: 17:13 Bed DX2 Private MD: ED Physician Agustín Hooper HPI: 07/21 17:46 This 24 yrs old Female presents to ER via Ambulatory with complaints of Flu kb Symptoms. 17:46 Pt is a 24 year old female who presents for back pain that starts in right flank and kb radiates up to right shoulder that started last night. Reports worse with movement. Reports urinary frequency. Reports mild cough. States she developed sudden chills last night as well. Pain aggravated by certain positions. Denies fever, dysuria. Historical: - Allergies: 17:44 No Known Allergies; cm10 - PMHx: 17:44 Anxiety; depressive disorder; cm10 - PSHx: 17:44 Tonsillectomy; cm10 - Immunization history:: Adult Immunizations up to date. - Infectious Disease History:: Denies. - Social history:: Smoking status: Reported history of juuling and/or vaping. ROS: 17:46 Constitutional: As per HPI kb Exam: 17:50 Constitutional: This is a well developed, well nourished patient who is awake, alert, kb and in no acute distress. Head/Face: Normocephalic, atraumatic. ENT: Moist Mucous membranes Cardiovascular: Regular rate Respiratory: Respirations even and unlabored. No increased work of breathing. Talking in full sentences Abdomen/GI: Soft, non-tender. No distention Skin: Warm, dry with normal turgor. Normal color. MS/ Extremity: Pulses equal, no cyanosis. Neurovascular intact. Full, normal range of motion. Neuro: Awake and alert, GCS 15, oriented to person, place, time, and situation. Moves all extremities. Normal gait. 17:50 Back: pain, that is mild, of the left mid back and right mid back, ROM is normal, normal spinal alignment noted, CVA tenderness, is absent, Vital Signs: 17:43 BP 128 / 81; Pulse 79; Resp 16; Temp 97.9; Pulse Ox 99% on R/A; Weight 108.41 kg; cm10 Height 5 ft. 0 in. ; Pain 8/10; 19:25 BP 124 / 83; Pulse 71; Resp 16 S; Pulse Ox 99% on R/A; ss 17:43 Body Mass Index 46.68 (108.41 kg, 152.4 cm) cm10 17:43 Pain Scale: Adult cm10 MDM: 17:40 Patient medically screened. kb 17:51 Data reviewed: vital signs, nurses notes. kb 18:53 Differential diagnosis: viral Infection, UTI, pneumonia, kidney stone. Counseling: I kb had a detailed discussion with the patient and/or guardian regarding the historical points, exam findings, and any diagnostic results supporting the discharge/admit diagnosis, lab results, radiology results, the need for outpatient follow up, a family practitioner, to return to the emergency department if symptoms worsen or persist or if there are any questions or concerns that arise at home. 18:54 Test considered but Not performed: Labs: cbc, cmp considered but pt is nontoxic in kb appearance, abd soft and nontender. CT: ct stone considered but pt has pain across back with no CVA tenderness. 07/21 17:50 Order name: Flu; Complete Time: 18:45 kb 07/21 17:50 Order name: SARS-COV-2 Antigen Rapid; Complete Time: 18:38 kb 07/21 17:50 Order name: Test, Urine; Complete Time: 18:33 kb 07/21 17:50 Order name: Urinalysis w/ reflexes; Complete Time: 18:33 kb 07/21 17:50 Order name: Chest Pa And Lat (2 Views) XRAY; Complete Time: 18:33 kb 07/21 17:51 Order name: US Abdomen Limited; Complete Time: 18:25 kb Administered Medications: 19:24 Drug: Ketorolac IM 30 mg IM once Route: IM; Site: left deltoid; ss 19:29 Follow up: Response: No adverse reaction ss Disposition Summary: 07/21/24 18:54 Discharge Ordered Notes: Location: Home kb Condition: Stable kb Diagnosis - Back Pain kb Followup: kb - With: Emergency Department - When: As needed - Reason: Worsening of condition Followup: kb - With: Private Physician - When: 2 - 3 days - Reason: Recheck today's complaints, Continuance of care, Re-evaluation by your physician Discharge Instructions: - Discharge Summary Sheet kb - Acute Back Pain, Adult kb Forms: - Medication Reconciliation Form kb - Antibiotic Education kb - Prescription Opioid Use kb - Patient Portal Instructions kb - Leadership Thank You Letter kb Signatures: Dispatcher [employer] Brielle Schaffer, Berta Lopez, RN RN ss Rebeca Albert RN RN cm10 Corrections: (The following items were deleted from the chart) 18:54 17:46 Pt is a 24 year old female who presents for back pain that starts in right flank kb and radiates up to right shoulder that started last night. Reports worse with movement. Reports urinary frequency. Reports mild cough. States she developed sudden chills last night as well. . kb
--- NOTE | 2024-07-21 18:55 | ER ---
Nurse's Notes [facility] Name: Wilton Kapadia Age: 24 yrs Sex: Female : 2000 Arrival Date: 07/21/2024 Time: 17:13 Bed DX2 Private MD: Diagnosis: Back Pain Presentation: 07/21 17:43 Chief complaint: Patient states: Mid back pain that radiates up to her shoulders onset cm10 last night. Pt reports nausea and chills. No cough, congestion or urinary symptoms. Coronavirus screen: Client denies travel out of the [place] in the last 14 days. Ebola Screen: Patient denies travel to an Ebola-affected area in the 21 days before illness onset. No symptoms or risks identified at this time. Initial Sepsis Screen: Does the patient meet any 2 criteria? No. Patient's initial sepsis screen is negative. Does the patient have a suspected source of infection? No. Patient's initial sepsis screen is negative. Risk Assessment: Do you want to hurt yourself or someone else? Patient reports no desire to harm self or others. Onset of symptoms was July 21, 2024. 17:43 Method Of Arrival: Ambulatory cm10 17:43 Acuity: ARMANI 4 cm10 Triage Assessment: 17:44 General: Appears in no apparent distress. comfortable, Behavior is calm, cooperative. cm10 Pain: Complains of pain in back. Neuro: No deficits noted. Level of Consciousness is awake, alert, obeys commands, Oriented to person, place, time, situation, Appropriate for age. Respiratory: No deficits noted. Airway is patent Respiratory effort is even, unlabored, Respiratory pattern is regular, symmetrical. Musculoskeletal: Reports pain in back. Historical: - Allergies: 17:44 No Known Allergies; cm10 - PMHx: 17:44 Anxiety; depressive disorder; cm10 - PSHx: 17:44 Tonsillectomy; cm10 - Immunization history:: Adult Immunizations up to date. - Infectious Disease History:: Denies. - Social history:: Smoking status: Reported history of juuling and/or vaping. Screenin:25 [facility] ED Fall Risk Assessment (Adult) History of falling in the last 3 months, ss including since admission No falls in past 3 months (0 pts) Confusion or Disorientation No (0 pts) Intoxicated or Sedated No (0 pts) Impaired Gait No (0 pts) Mobility Assist Device Used No (0 pt) Altered Elimination No (0 pt) Score/Fall Risk Level 0 - 2 = Low Risk Oriented to surroundings, Maintained a safe environment, Educated pt \T\ family on fall prevention, incl call for assistance when getting out of bed, Assessed \T\ reinforced patient's understanding of fall precautions. Abuse screen: Denies threats or abuse. Denies injuries from another. Nutritional screening: No deficits noted. Tuberculosis screening: No symptoms or risk factors identified. Assessment: 19:25 General: Appears in no apparent distress. comfortable, Behavior is calm, cooperative. ss Pain: Complains of pain in back. Neuro: No deficits noted. Mcwilliams Agitation-Sedation Scale (RASS): 0 - Alert and Calm Level of Consciousness is awake, alert, obeys commands, Oriented to person, place, time, situation. Cardiovascular: No deficits noted. Denies chest pain, shortness of breath, Capillary refill < 3 seconds Clubbing of nail beds is absent JVD is absent Patient's skin is warm and dry. Respiratory: No deficits noted. Airway is patent Respiratory effort is even, unlabored, Respiratory pattern is regular, symmetrical. GI: No deficits noted. Abdomen is round non-distended, Reports nausea. : No deficits noted. No signs and/or symptoms were reported regarding the genitourinary system. EENT: No deficits noted. No signs and/or symptoms were reported regarding the EENT system. Derm: No deficits noted. No signs and/or symptoms reported regarding the dermatologic system. Skin is intact, is healthy with good turgor, Skin is dry, Skin is normal, Skin temperature is warm. Musculoskeletal: No deficits noted. Circulation, motion, and sensation intact. Range of motion: intact in all extremities. Vital Signs: 17:43 BP 128 / 81; Pulse 79; Resp 16; Temp 97.9; Pulse Ox 99% on R/A; Weight 108.41 kg; cm10 Height 5 ft. 0 in. ; Pain 8/10; 19:25 BP 124 / 83; Pulse 71; Resp 16 S; Pulse Ox 99% on R/A; ss 17:43 Body Mass Index 46.68 (108.41 kg, 152.4 cm) cm10 17:43 Pain Scale: Adult cm10 ED Course: 17:40 Patient arrived in ED. kb 17:40 [facility] Blanca [facility]C [facility] kb 17:40 Agustín Hooper MD is Attending Physician. kb 17:44 Triage completed. cm10 17:45 Arm band placed on Patient placed in waiting room. cm10 18:10 Chest Pa And Lat (2 Views) XRAY In Process Unspecified. EDMS 18:10 US Abdomen Limited In Process Unspecified. EDMS 18:15 Test, Urine Sent. cm10 18:15 Urinalysis w/ reflexes Sent. cm10 18:15 SARS-COV-2 Antigen Rapid Sent. cm10 18:15 Flu Sent. cm10 18:18 Urine collected: clean catch specimen, COVID swab sent to lab. Flu and/or RSV swab sent cm10 to lab. 19:25 Berta August, RN is Primary Nurse. ss 19:25 Patient has correct armband on for positive identification. Family accompanied patient. ss 19:25 No provider procedures requiring assistance completed. Patient did not have IV access ss during this emergency room visit. Administered Medications: 19:24 Drug: Ketorolac IM 30 mg IM once Route: IM; Site: left deltoid; ss 19:29 Follow up: Response: No adverse reaction ss Medication: 19:25 VIS not applicable for this client. ss Outcome: 18:54 Discharge ordered by . kb 19:25 Discharged to home ambulatory, ss 19:25 Condition: stable 19:25 Discharge instructions given to patient, Instructed on discharge instructions, follow up and referral plans. Demonstrated understanding of instructions, follow-up care, 19:29 Patient left the ED. ss Signatures: Dispatcher [employer] EDMO Brielle Blanca FNP-C FNP-Berta Engle, RN RN Rebeca Albert RN RN cm10
[2024-07-21] MEDS ORDERED: KETOROLAC 30 MG/ML INJ ONE (19:20)
[2024-07-21 19:45] VITALS: TEMP 97.9; O2SAT 99
[2024-07-21 19:47] VITALS: BP 124/83
== END 2024-07-21 19:29 | disposition home or self-care (01) ==
LOC: ER 17:13
DX: M54.9 Dorsalgia, unspecified (principal); Z11.52 Encounter for screening for COVID-19
CPT/HCPCS: 36415; 71046; 76705; 81001; 81025; 87804; 87811; 96372; 99284